=== PATIENT | male | born 1975 | race African-American/Black ===

== ENCOUNTER → 2018-05-13 | Outpatient (CLI) | payer OTHER ==
--- NOTE | 2018-05-13 19:29 | CONS ---
CONSULTATION DATE OF SERVICE: 05/13/2018 42-year-old gentleman has been evaluated in Sleep Center for obstructive sleep apnea- hypopnea syndrome. HISTORY OF PRESENT ILLNESS/SLEEP WAKE EVALUATION: Patient has been diagnosed with obstructive sleep apnea about 10 years ago in different institution in [place]. Since that time, patient is on treatment with CPAP every night for the whole night. For the last 3 years, patient significantly increased his weight around 80 pounds. Recently his told about episodes of heavy breathing during the sleep while patient continued to use his CPAP equipment every night. SLEEP SCHEDULE: Sleep schedule on weekdays from 10:30 p.m. to 6 a.m. and on weekends from around 11:30 p.m. to 8:30 a.m. FALLING ASLEEP: He does have problem with falling asleep the bedroom. Although, no t.v. In bedroom. DURING SLEEP: He sleeps on the back position. He wakes up from sleep 2 times. DURING THE DAY/SLEEP WAKE EVALUATION: In the morning, he wakes up tired, has episodes of depression, anxiety, and sexual dysfunction. [place] Sleepiness Scale is 8. PAST MEDICAL HISTORY: Positive for gout, hypertension, fibromyalgia, leukemia. PAST SURGICAL HISTORY: Toenail removal, otherwise negative. MEDICATIONS: allopurinol, Duloxetine, felodipine, potassium supplement, Viagra on p.r.n. basis. SOCIAL HISTORY: Negative for smoking. Alcohol consumption occasional. FAMILY HISTORY: Hypertension, heart problems, hyperlipidemia, stroke, fibromyalgia, arthritis, sinus headaches, sleep apnea, lung problems, cancer, mental illness, acid reflux. REVIEW OF SYSTEMS: Awakenings from sleep. Episodes of heavy breathing while on treatment with CPAP. CPAP unit is old. Does not have information about apnea-hypopnea index. Auto set pressure with minimal pressure 5 and maximal 20. Patient does not have information about average pressure. PHYSICAL EXAM: gentleman without distress, BP 138/81, HR around 110, RR 16, height 5 foot 10-1/2 inches, weight 313 pounds, body mass index 44.1, temperature 98.5, oxygen saturation on room air 94%. Oropharynx: Extremely low position of soft palate. ABDOMEN: Obese. Neck Supple, no JVD. Thyroid is not palpable. LUNGS Clear to percussion and to auscultation. Good air exchange. No wheezing or rhonchi. HEART S1, S2 regular. No murmurs, gallops, or rubs. ABDOMEN: Obese. Soft and nontender. Bowel sounds are present. No organomegaly appreciated. EXTREMITIES No clubbing or cyanosis. 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 Cranial nerves 2 to 7 intact. There is no fasciculation or atrophy. noted. No focal deficits observed. IMPRESSION: 1. Obstructive sleep apnea-hypopnea syndrome for about 10 years. Patient continued to use his CPAP equipment every night, but has episodes of heavy breathing on CPAP. Patient increased his weight around 80 pounds compared with the weight when he had the sleep study. 2. Obesity, body mass index 44.1. 3. Hypertension. 4. Gout. 5. History of leukemia, CML, chronic myeloid leukemia. 6. Fibromyalgia. PLAN: 1. Repeat CPAP titration for reevaluation of effective CPAP pressure at the present time after patient significantly increased his weight. He should get new CPAP unit after titration. 2. Losing weight. 3. Sleep hygiene with regular time in bed for at least 8 hours. 4. No driving if feeling sleepiness. Thank you very much for referring this patient for consultation. Sincerely, Yovani Chew MD, PhD, FAASM Diplomat of [place] [employer] [employer] Sourcing Coordinator of [facility] [place] MMODL / YENYN: [id number] /
== END | disposition home or self-care (01) ==
LOC: SLEEP 15:32
PROVIDERS: ATTEND Internal Medicine
DX: G47.33 Obstructive sleep apnea (adult) (pediatric) (principal); F32.9 Major depressive disorder, single episode, unspecified; F41.9 Anxiety disorder, unspecified; N53.9 Unspecified male sexual dysfunction; M10.9 Gout, unspecified; I10 Essential (primary) hypertension; M79.7 Fibromyalgia; E66.9 Obesity, unspecified; Z68.41 Body mass index [BMI] 40.0-44.9, adult; Z99.89 Dependence on other enabling machines and devices; Z79.899 Other long term (current) drug therapy; Z85.6 Personal history of leukemia
CPT/HCPCS: 99211

== ENCOUNTER 2018-06-05 16:40 | Emergency (ER) | payer OTHER ==
[2018-06-05 16:49] VITALS: PULSE 115; RESP 20; TEMP 98.5
[2018-06-05] MEDS ORDERED: SODIUM CHLORIDE 0.9% 1,000 ML IV STA (17:09)
[2018-06-05] MEDS ORDERED: methylPREDNISolone SOD SUCCI 125 MG/2 ML VIAL IV STA (17:10)
--- NOTE | 2018-06-05 17:22 | ED ---
Recheck HPI - General Chief Complaint: Recheck/Abnormal Lab/Rx Stated Complaint: Abnormal EKG Time Seen by Provider: 06/05/18 16:58 Source: patient Mode of arrival: wheelchair Limitations: no limitations - History of Present Illness Initial Comments: 42-year-old male patient presents to the emergency department today for evaluation after having an abnormal EKG at urgent care. Patient states that he presented to urgent care today for evaluation of cough. Patient states his been sick over the last week with cough, nasal congestion, sore throat, and fever. Patient states is her throat and fever have resolved however the cough has persisted. Patient states when he arrived at urgent care his heart rate was elevated. States that it EKG found some changes and sent him over for further evaluation. Patient denies any chest pain. States he has been short of breath at times especially with coughing. States he does have a history of chronic myeloid leukemia, and hypertension. Patient denies any recent rash, abdominal pain, nausea, vomiting, diarrhea, constipation, back pain, numbness, tingling, dizziness, weakness, hematuria, dysuria, urinary urgency, urinary frequency, headache, visual changes, or any other complaints. - Related Data Home Medications Medication Instructions Recorded Confirmed Allopurinol [Zyloprim] 300 mg PO DAILY 06/05/18 06/05/18 Cold Eeze (Unknown Dose) 1 tab PO TID PRN 06/05/18 06/05/18 DULoxetine HCL [Cymbalta] 60 mg PO DAILY 06/05/18 06/05/18 Felodipine [Felodipine ER] 10 mg PO DAILY 06/05/18 06/05/18 Multivitamin,Therapeutic [Thera] 1 tab PO DAILY 06/05/18 06/05/18 Naproxen Sodium [Aleve] 220 mg PO DAILY 06/05/18 06/05/18 Nilotinib HCl [Tasigna] 300 mg PO BID 06/05/18 06/05/18 Telmisartan/Hydrochlorothiazid 1 tab PO DAILY 06/05/18 06/05/18 [Micardis Hct 80-25 mg Tablet] Allergies Allergy/AdvReac Type Severity Reaction Status Date / Time Penicillins Allergy Rash/Hives Verified 06/05/18 17:42 Sulfa (Sulfonamide AdvReac Rash/Hives Verified 06/05/18 17:42 Antibiotics) Review of Systems ROS Statement: Those systems with pertinent positive or pertinent negative responses have been documented in the HPI. ROS Other: All systems not noted in ROS Statement are negative. Past Medical History Past Medical History: Cancer, Hypertension Additional Past Medical History / Comment(s): CML History of Any Multi-Drug Resistant Organisms: None Reported Past Surgical History: Heart Catheterization Past Psychological History: Depression Smoking Status: Never smoker Past Alcohol Use History: Occasional Past Drug Use History: None Reported General Exam Limitations: no limitations General appearance: alert, in no apparent distress, other (Physical well- developed, well-nourished adult male patient in no acute distress. Vital signs upon presentation are temperature 98.5F, pulse 1:15, respirations 20, blood pressure 131/75, pulse ox 95% on room air.) Eye exam: Present: normal appearance, PERRL, EOMI. Absent: scleral icterus, conjunctival injection, periorbital swelling ENT exam: Present: normal exam, normal oropharynx, mucous membranes moist, TM's normal bilaterally Neck exam: Present: normal inspection. Absent: tenderness, meningismus, lymphadenopathy Respiratory exam: Present: normal lung sounds bilaterally. Absent: respiratory distress, wheezes, rales, rhonchi, stridor Cardiovascular Exam: Present: normal rhythm, tachycardia, normal heart sounds. Absent: systolic murmur, diastolic murmur, rubs, gallop, clicks GI/Abdominal exam: Present: soft, normal bowel sounds. Absent: distended, tenderness, guarding, rebound, rigid Neurological exam: Present: alert, oriented X3, CN II-XII intact Psychiatric exam: Present: normal affect, normal mood Skin exam: Present: warm, dry, intact, normal color. Absent: rash Course Vital Signs 06/05/18 06/05/18 16:45 17:04 Temperature 98.5 F 98.5 F Pulse Rate 115 H 115 H Respiratory 20 20 Rate Blood Pressure 131/75 142/74 O2 Sat by Pulse 95 95 Oximetry Medical Decision Making - Medical Decision Making 42-year-old male patient was sent to the emergency department from urgent care for abnormal EKG. EKG showed T-wave abnormality with sinus tachycardia. Labs are unremarkable. D-dimer negative. Chest x-ray showed no acute cardio pulmonary process. We will discharge patient home at this time a diagnosis of acute bronchitis. He did receive prescriptions for azithromycin, steroids, and Tessalon Perles from urgent care, he is urged to complete these medications. He is instructed follow up with his primary care physician for recheck for repeat EKG and possible referral to cardiology. Return parameters were discussed in detail. He verbalizes understanding and agrees with this plan. - Lab Data Result diagrams: 06/05/18 17:15 06/05/18 17:15 Lab Results 06/05/18 06/05/18 06/05/18 Range/Units 17:15 17:15 17:15 WBC 9.1 (3.8-10.6) k/uL RBC 5.12 (4.30-5.90) m/uL Hgb 14.1 (13.0-17.5) gm/dL Hct 45.4 (39.0-53.0) % MCV 88.8 (80.0-100.0) fL MCH 27.5 (25.0-35.0) pg MCHC 31.0 (31.0-37.0) g/dL RDW 14.1 (11.5-15.5) % Plt Count 153 (150-450) k/uL Neutrophils % 59 % Lymphocytes % 22 % Monocytes % 11 % Eosinophils % 3 % Basophils % 1 % Neutrophils # 5.4 (1.3-7.7) k/uL Lymphocytes # 2.0 (1.0-4.8) k/uL Monocytes # 1.0 (0-1.0) k/uL Eosinophils # 0.3 (0-0.7) k/uL Basophils # 0.1 (0-0.2) k/uL PT (9.0-12.0) sec INR (<1.2) APTT (22.0-30.0) sec D-Dimer (<0.60) mg/L FEU Sodium 143 (137-145) mmol/L Potassium 4.1 (3.5-5.1) mmol/L Chloride 105 (98-107) mmol/L Carbon Dioxide 30 (22-30) mmol/L Anion Gap 8 mmol/L BUN 13 (9-20) mg/dL Creatinine 0.87 (0.66-1.25) mg/dL Est GFR (CKD-EPI)AfAm >90 (>60 ml/min/1.73 sqM) Est GFR (CKD-EPI)NonAf >90 (>60 ml/min/1.73 sqM) Glucose 105 H (74-99) mg/dL Calcium 9.5 (8.4-10.2) mg/dL Magnesium 1.9 (1.6-2.3) mg/dL Total Bilirubin 0.6 (0.2-1.3) mg/dL AST 33 (17-59) U/L ALT 52 (21-72) U/L Alkaline Phosphatase 61 (38-126) U/L Total Creatine Kinase 254 H (55-170) U/L CK-MB (CK-2) 1.4 (0.0-2.4) ng/mL CK-MB (CK-2) Rel Index 0.6 Troponin I <0.012 (0.000-0.034) ng/mL Total Protein 7.7 (6.3-8.2) g/dL Albumin 4.3 (3.5-5.0) g/dL 06/05/18 Range/Units 17:15 WBC (3.8-10.6) k/uL RBC (4.30-5.90) m/uL Hgb (13.0-17.5) gm/dL Hct (39.0-53.0) % MCV (80.0-100.0) fL MCH (25.0-35.0) pg MCHC (31.0-37.0) g/dL RDW (11.5-15.5) % Plt Count (150-450) k/uL Neutrophils % % Lymphocytes % % Monocytes % % Eosinophils % % Basophils % % Neutrophils # (1.3-7.7) k/uL Lymphocytes # (1.0-4.8) k/uL Monocytes # (0-1.0) k/uL Eosinophils # (0-0.7) k/uL Basophils # (0-0.2) k/uL PT 9.5 (9.0-12.0) sec INR 0.9 (<1.2) APTT 25.5 (22.0-30.0) sec D-Dimer 0.29 (<0.60) mg/L FEU Sodium (137-145) mmol/L Potassium (3.5-5.1) mmol/L Chloride (98-107) mmol/L Carbon Dioxide (22-30) mmol/L Anion Gap mmol/L BUN (9-20) mg/dL Creatinine (0.66-1.25) mg/dL Est GFR (CKD-EPI)AfAm (>60 ml/min/1.73 sqM) Est GFR (CKD-EPI)NonAf (>60 ml/min/1.73 sqM) Glucose (74-99) mg/dL Calcium (8.4-10.2) mg/dL Magnesium (1.6-2.3) mg/dL Total Bilirubin (0.2-1.3) mg/dL AST (17-59) U/L ALT (21-72) U/L Alkaline Phosphatase (38-126) U/L Total Creatine Kinase (55-170) U/L CK-MB (CK-2) (0.0-2.4) ng/mL CK-MB (CK-2) Rel Index Troponin I (0.000-0.034) ng/mL Total Protein (6.3-8.2) g/dL Albumin (3.5-5.0) g/dL - EKG Data -: EKG Interpreted by Ri EKG Comments: EKG obtained at 1709 shows sinus tachycardia with a ventricular rate of 113, VT interval 126, QRS duration 86, QT 314, QTC 430. No evidence of ST elevation or depression. - Radiology Data Radiology results: report reviewed, image reviewed Two-view x-ray of the chest is obtained. Report was reviewed in its entirety. Impression by Dr. Foreman shows normal chest. Disposition Clinical Impression: Acute bronchitis Disposition: HOME SELF-CARE Condition: Good Instructions: Acute Bronchitis (ED) Additional Instructions: Increase fluids. Complete medications prescribed by [facility]. Follow up with your primary care physician for repeat EKG. Return to the emergency department for any new, worsening, or concerning symptoms. Is patient prescribed a controlled substance at d/c from ED?: No Referrals: Kamilah Jovel MD [Primary Care Provider] - 1-2 days Time of Disposition: 18:13
[2018-06-05 17:23] VITALS: BP 142/74
[2018-06-05 17:48] LABS: Basophils # (A) 0.1 k/uL (0-0.2); Basophils % (A) 1 %; Eosinophils # (A) 0.3 k/uL (0-0.7); Eosinophils % (A) 3 %; HCT 45.4 % (39.0-53.0); HGB 14.1 gm/dL (13.0-17.5); Lymphocytes % (A) 22 %; MCH 27.5 pg (25.0-35.0); MCV 88.8 fL (80.0-100.0); Mean Platelet Volume 9.7; Monocytes % (A) 11 %; Neutrophils # (A) 5.4 k/uL (1.3-7.7); Neutrophils % (A) 59 %; Platelet Count 153 k/uL (150-450); RBC 5.12 m/uL (4.30-5.90); RDW 14.1 % (11.5-15.5); WBC 9.1 k/uL (3.8-10.6)
[2018-06-05 17:56] LABS: Creatine Kinase 254 U/L (55-170)
--- NOTE | 2018-06-05 17:56 | XR ---
EXAMINATION TYPE: XR chest 2V DATE OF EXAM: 06/05/2018 COMPARISON: NONE HISTORY: Abnormal cardiogram TECHNIQUE: Frontal and lateral views of the chest are obtained. FINDINGS: Heart and mediastinum are normal. Lungs are clear. Diaphragm is normal. Bony thorax is int act. IMPRESSION: Normal chest.
[2018-06-05 17:58] LABS: ALT 52 U/L (21-72); AST 33 U/L (17-59); Albumin 4.3 g/dL (3.5-5.0); Alkaline Phosphatase 61 U/L (38-126); Anion Gap 8 mmol/L; Blood Urea Nitrogen 13 mg/dL (9-20); Calcium 9.5 mg/dL (8.4-10.2); Carbon Dioxide 30 mmol/L (22-30); Chloride 105 mmol/L (98-107); Glucose 105 mg/dL (74-99); Magnesium 1.9 mg/dL (1.6-2.3); Potassium 4.1 mmol/L (3.5-5.1); Sodium 143 mmol/L (137-145); Total Bilirubin 0.6 mg/dL (0.2-1.3); Total Protein 7.7 g/dL (6.3-8.2)
[2018-06-05 18:00] LABS: D-Dimer 0.29 mg/L FEU (<0.60); INR 0.9 (<1.2); Partial Thromboplastin Time 25.5 sec (22.0-30.0); Prothrombin Time 9.5 sec (9.0-12.0)
[2018-06-05 18:10] LABS: Creatine Kinase MB 1.4 ng/mL (0.0-2.4); Troponin I <0.012 ng/mL (0.000-0.034)
== END 2018-06-05 18:30 | disposition home or self-care (01) ==
LOC: EC 16:40
DX: J20.9 Acute bronchitis, unspecified (principal); R00.0 Tachycardia, unspecified; I10 Essential (primary) hypertension; Z85.6 Personal history of leukemia; F32.9 Major depressive disorder, single episode, unspecified; Z79.899 Other long term (current) drug therapy; Z79.1 Long term (current) use of non-steroidal anti-inflammatories (NSAID); Z88.0 Allergy status to penicillin; Z88.2 Allergy status to sulfonamides; Z95.818 Presence of other cardiac implants and grafts
CPT/HCPCS: 99285; 96374; 36415; 93005; 85379; 80053; 82550; 82553; 83735; 84484; 85025; 85610; 85730; 71046; 96361; J2930

== ENCOUNTER → 2018-09-24 | Outpatient (CLI) | payer OTHER ==
--- NOTE | 2018-09-24 16:44 | PN ---
PROGRESS NOTE DATE OF SERVICE: 09/24/2018 43-year-old gentleman who has been followed in Sleep Center for treatment of obstructive sleep apnea-hypopnea syndrome. Recently patient had CPAP titration and after that he received new CPAP unit. He is able to use CPAP equipment every night for the whole night. He does have a little bit discomfort with nasal pillows in his nostrils. Otherwise, he sleeps well with that. [place] Sleepiness Scale is 9 today. Medications: Tasigna, allopurinol, duloxetine, felodipine and Viagra. I checked the patient CPAP unit. Range of the pressure 12-17, most of the time pressure is 16.9. Leak is 29 L/minute which is borderline. Apnea-hypopnea index for the last month is 2.6, which is in normal range. Usage is 100% of the nights more than 4 hours every 7.7 hours per night. PHYSICAL EXAM: Patient in no distress. BP 137/86, HR 90, RR 16, weight 321, temp 98.7, oxygen saturation at room air 95%. Oropharynx extremely low position of soft palate, Mallampati 4. Neck Supple, no JVD. Thyroid is not palpable. LUNGS Clear to percussion and to auscultation. Good air exchange. No wheezing or rhonchi. HEART S1, S2 regular. No murmurs, gallops, or rubs. ABDOMEN: Obese. Soft and nontender. Bowel sounds are present. No organomegaly appreciated. EXTREMITIES No clubbing or cyanosis. UNDERGROUND SUPERVISOR Awake, alert, and oriented X3. Cranial nerves 2 to 7 intact. There is no fasciculation or atrophy. noted. No focal deficits observed. IMPRESSION: 1. Obstructive sleep apnea-hypopnea syndrome. The patient demonstrated 100% compliance with treatment benefitting from treatment. 2. Obesity. 3. Hypertension. 4. History of chronic myelocytic leukemia. 5. Gout. 6. History of fibromyalgia. PLAN: 1. The patient will continue to use CPAP equipment every night for the whole night. 2. We will check a different style of nasal pillow or different style of mask. Possibly to use a chin strap. 3. Losing weight. 4. Sleep hygiene with regular time in bed for 7.5 to 8 hours. 5. No driving if feeling sleepiness. Thank you very much for allowing me to participate in management of your patient. Sincerely, Yovani Chew, MD, PhD, FAASM Diplomat of [employer] [employer] [employer] Film And Video Graphics Designer of [facility] [place] MMJOE / ANGELA: [id number] /
== END | disposition home or self-care (01) ==
LOC: SLEEP 15:35
PROVIDERS: ATTEND Internal Medicine
DX: G47.33 Obstructive sleep apnea (adult) (pediatric) (principal); E66.9 Obesity, unspecified; I10 Essential (primary) hypertension; M10.9 Gout, unspecified; M79.7 Fibromyalgia; Z99.89 Dependence on other enabling machines and devices; Z85.6 Personal history of leukemia

== ENCOUNTER → 2019-03-24 | Outpatient (CLI) | payer BC, OTHER ==
[2019-03-24 11:33] VITALS: BMI 43.9
== END | disposition home or self-care (01) ==
LOC: DBWHC3 09:57
PROVIDERS: ATTEND Family Medicine
DX: E66.01 Morbid (severe) obesity due to excess calories (principal); Z68.41 Body mass index [BMI] 40.0-44.9, adult
CPT/HCPCS: 97802

== ENCOUNTER → 2019-09-15 | Outpatient (CLI) | payer BC ==
--- NOTE | 2019-09-15 17:27 | XR ---
EXAMINATION TYPE: XR chest 2V DATE OF EXAM: 09/15/2019 COMPARISON: 06/05/2018 HISTORY: 43-year-old male J18.19, follow-up pneumonia TECHNIQUE: PA and lateral views FINDINGS: Heart normal size. Aorta and pulmonary vasculature within normal limits. Some strandy atelectasis in the left lower lung. Otherwise, no consolidation or pleural effusion. IMPRESSION: Some strandy left basilar atelectasis. Otherwise, no acute process seen.
== END | disposition home or self-care (01) ==
LOC: RADXRMAIN 16:58
PROVIDERS: ATTEND Family Medicine
DX: J98.11 Atelectasis (principal); J18.9 Pneumonia, unspecified organism
CPT/HCPCS: 71046

== ENCOUNTER → 2019-11-15 | Outpatient (CLI) | payer BC ==
[2019-11-15 15:28] LABS: Basophils # (A) 0.1 k/uL (0-0.2); Basophils % (A) 1 %; Eosinophils # (A) 0.2 k/uL (0-0.7); Eosinophils % (A) 2 %; HCT 43.6 % (39.0-53.0); Hypochromasia Slight; Lymphocytes % (A) 27 %; MCH 29.2 pg (25.0-35.0); MCHC 32.2 g/dL (31.0-37.0); MCV 90.8 fL (80.0-100.0); Mean Platelet Volume 11.2; Monocytes # (A) 0.4 k/uL (0-1.0); Monocytes % (A) 4 %; Neutrophils # (A) 7.1 k/uL (1.3-7.7); Neutrophils % (A) 65 %; Platelet Count 155 k/uL (150-450); RDW 13.8 % (11.5-15.5); WBC 10.9 k/uL (3.8-10.6)
[2019-11-15 20:19] LABS: African American GFR (CKD) 125.9 (60.0-200.0); Albumin 4.5 g/dL (3.80-4.90); Albumin/Globulin Ratio 1.73 (1.60-3.17); Anion Gap 9.9 mmol/L (4.00-12.00); BUN/Creat Ratio 11.25 Ratio (12.00-20.00); Calcium 9.2 mg/dL (8.7-10.3); Carbon Dioxide 27.1 mmol/L (21.6-31.8); Globulin 2.6 g/dL (1.6-3.3); Non-African American GFR(CKD) 108.6 (60.0-200.0); Potassium 3.8 mmol/L (3.5-5.5); Total Bilirubin 0.5 mg/dL (0.2-1.2); Total Protein 7.1 g/dL (6.2-8.2)
== END | disposition home or self-care (01) ==
LOC: LABWHC1 14:22
PROVIDERS: ATTEND Internal Medicine
DX: C92.10 Chronic myeloid leukemia, BCR/ABL-positive, not having achieved remission (principal)
CPT/HCPCS: 36415; 80053; 85025

== ENCOUNTER → 2019-12-01 | Outpatient (CLI) | payer BC | END | disposition home or self-care (01) | LOC: LABWHC1 11:37 | PROVIDERS: ATTEND Physician Assistant | DX: Z53.9 Procedure and treatment not carried out, unspecified reason (principal) ==

== ENCOUNTER → 2019-12-22 | Outpatient (CLI) | payer BC | END | disposition home or self-care (01) | LOC: LABWHC1 08:03 | PROVIDERS: ATTEND Physician Assistant | DX: Z09 Encounter for follow-up examination after completed treatment for conditions other than malignant neoplasm (principal); C92.10 Chronic myeloid leukemia, BCR/ABL-positive, not having achieved remission | CPT/HCPCS: 36415 ==

== ENCOUNTER → 2020-05-09 | Outpatient (CLI) | payer BC ==
[2020-05-09 12:33] LABS: Basophils # (A) 0.1 k/uL (0-0.2); Basophils % (A) 1 %; Eosinophils # (A) 0.1 k/uL (0-0.7); Eosinophils % (A) 1 %; HCT 44.9 % (39.0-53.0); HGB 14.6 gm/dL (13.0-17.5); Lymphocytes # (A) 2.4 k/uL (1.0-4.8); Lymphocytes % (A) 21 %; MCH 28.8 pg (25.0-35.0); MCHC 32.4 g/dL (31.0-37.0); MCV 88.8 fL (80.0-100.0); Monocytes # (A) 0.6 k/uL (0-1.0); Monocytes % (A) 5 %; Neutrophils # (A) 8.1 k/uL (1.3-7.7); Neutrophils % (A) 70 %; Platelet Count 151 k/uL (150-450); RBC 5.06 m/uL (4.30-5.90); RDW 13.4 % (11.5-15.5); WBC 11.6 k/uL (3.8-10.6)
[2020-05-09 20:00] LABS: African American GFR (CKD) 105.6 (60.0-200.0); Albumin 4.9 g/dL (3.80-4.90); Albumin/Globulin Ratio 1.96 (1.60-3.17); Anion Gap 9.8 mmol/L (4.00-12.00); Calcium 9.5 mg/dL (8.7-10.3); Carbon Dioxide 28.2 mmol/L (21.6-31.8); Chol/HDL Ratio 4.68; Globulin 2.5 g/dL (1.6-3.3); LDL Cholesterol,Calculated 120.4 mg/dL (0.0-131.0); Non-African American GFR(CKD) 91.1 (60.0-200.0); Total Bilirubin 0.7 mg/dL (0.2-1.2); Total Protein 7.4 g/dL (6.2-8.2); VLDL Calculation 19.6 mg/dL (5.00-40.00)
== END | disposition home or self-care (01) ==
LOC: LABWHC1 10:47
PROVIDERS: ATTEND Family Medicine
DX: Z00.00 Encounter for general adult medical examination without abnormal findings (principal); I10 Essential (primary) hypertension; C92.10 Chronic myeloid leukemia, BCR/ABL-positive, not having achieved remission; F32.9 Major depressive disorder, single episode, unspecified; G47.33 Obstructive sleep apnea (adult) (pediatric)
CPT/HCPCS: 36415; 80053; 80061; 85025

== ENCOUNTER → 2020-06-06 | Outpatient (CLI) | payer BC ==
--- NOTE | 2020-06-07 09:22 | XR ---
EXAMINATION TYPE: XR knee complete bilateral DATE OF EXAM: 06/06/2020 COMPARISON: NONE HISTORY: Pain TECHNIQUE: Three views are submitted of each knee. FINDINGS: Mild narrowing of the medial compartment of the knee joint bilaterally. Osseous structures are intac t. No acute fracture seen. Soft tissue calcifications are noted. IMPRESSION: 1. Mild arthropathy. Small amount of fluid in the suprapatellar bursa not excluded. Correlate with MR I as clinically warranted..
== END | disposition home or self-care (01) ==
LOC: RADXRMAIN 15:58
PROVIDERS: ATTEND Family Medicine
DX: M12.862 Other specific arthropathies, not elsewhere classified, left knee (principal); M25.862 Other specified joint disorders, left knee

== ENCOUNTER → 2020-07-10 | Outpatient (CLI) | payer BC | END | disposition home or self-care (01) | LOC: LABWHC1 16:07 | PROVIDERS: ATTEND Internal Medicine | DX: C92.10 Chronic myeloid leukemia, BCR/ABL-positive, not having achieved remission (principal) | CPT/HCPCS: 36415 ==

== ENCOUNTER → 2020-08-02 | Outpatient (CLI) | payer BC ==
[2020-08-03 00:19] LABS: Basophils # (A) 0.08 X 10*3/uL (0.00-0.10); Basophils % (A) 0.6 %; Eosinophils % (A) 1.5 %; HGB 13.3 g/dL (13.0-17.0); Lymphocytes # (A) 3.46 X 10*3/uL (0.90-5.00); Lymphocytes % (A) 26.3 %; MCH 27.8 pg (27.0-32.0); MCHC 30.9 g/dL (32.0-37.0); MCV 89.8 fL (80.0-97.0); Mean Platelet Volume 13.9 fL (9.5-12.2); Monocytes # (A) 1.32 X 10*3/uL (0.20-1.00); Neutrophils # (A) 7.99 X 10*3/uL (1.80-7.70); Neutrophils % (A) 60.9 %; Platelet Count 171 X 10*3/uL (140-440); RBC 4.79 X 10*6/uL (4.40-5.60); RDW 13.5 % (11.5-14.5); WBC 13.14 X 10*3/uL (4.50-10.00)
[2020-08-03 13:09] LABS: Uric Acid 4.8 mg/dL (3.7-8.7)
[2020-08-03 13:10] LABS: African American GFR (CKD) 105.6 (60.0-200.0); Albumin 4.7 g/dL (3.80-4.90); Albumin/Globulin Ratio 1.74 (1.60-3.17); Anion Gap 13.9 mmol/L (4.00-12.00); Calcium 9.9 mg/dL (8.7-10.3); Carbon Dioxide 24.1 mmol/L (21.6-31.8); Chol/HDL Ratio 3.34; Globulin 2.7 g/dL (1.6-3.3); LDL Cholesterol,Calculated 68.4 mg/dL (0.0-131.0); Non-African American GFR(CKD) 91.1 (60.0-200.0); Potassium 3.8 mmol/L (3.5-5.5); Total Bilirubin 0.5 mg/dL (0.3-1.2); Total Protein 7.4 g/dL (6.2-8.2); VLDL Calculation 20.6 mg/dL (5.00-40.00)
== END | disposition home or self-care (01) ==
LOC: LABWHC1 16:16
PROVIDERS: ATTEND Internal Medicine
DX: C92.10 Chronic myeloid leukemia, BCR/ABL-positive, not having achieved remission (principal)
CPT/HCPCS: 36415; 80053; 80061; 82150; 83615; 83690; 84550; 85025

== ENCOUNTER → 2020-11-16 | Outpatient (CLI) | payer BC ==
--- NOTE | 2020-11-17 10:47 | XR ---
EXAM TYPE: LUMBAR SPINE X RAY SERIES COMPARISON: NONE HISTORY: Pain TECHNIQUE: 4 views are submitted. FINDINGS: Alignment is anatomic. The pedicles are intact. The transverse processes are intact. There is no s pondylolysis or spondylolisthesis. Degenerative change L5-S1. Facet arthropathy. IMPRESSION: 1. Degenerative change L5-S1.
--- NOTE | 2020-11-17 10:55 | XR ---
EXAMINATION TYPE: XR thoracic spine complete DATE OF EXAM: 11/16/2020 COMPARISON: NONE HISTORY: Pain TECHNIQUE: 3 views submitted FINDINGS: Alignment is anatomic. There is no compression deformities. Hypertrophic and degenerative changes of the spine. IMPRESSION: 1. Multilevel hypertrophic and degenerative change of the spine.
== END | disposition home or self-care (01) ==
LOC: RADXRMAIN 16:00
PROVIDERS: ATTEND Family Medicine
DX: M51.37 Other intervertebral disc degeneration, lumbosacral region (principal); M47.814 Spondylosis without myelopathy or radiculopathy, thoracic region
CPT/HCPCS: 72072; 72100

== ENCOUNTER → 2021-02-06 | Outpatient (CLI) | payer BC ==
[2021-02-06 23:42] LABS: Basophils # (A) 0.11 X 10*3/uL (0.00-0.10); Eosinophils # (A) 0.23 X 10*3/uL (0.04-0.35); Eosinophils % (A) 2.1 %; HCT 43.4 % (39.6-50.0); HGB 13.8 g/dL (13.0-17.0); Lymphocytes # (A) 3.38 X 10*3/uL (0.90-5.00); MCH 28.9 pg (27.0-32.0); MCHC 31.8 g/dL (32.0-37.0); Mean Platelet Volume 13.4 fL (9.5-12.2); Monocytes # (A) 1.08 X 10*3/uL (0.20-1.00); Monocytes % (A) 9.9 %; Neutrophils # (A) 6.04 X 10*3/uL (1.80-7.70); Neutrophils % (A) 55.4 %; Platelet Count 154 X 10*3/uL (140-440); RBC 4.77 X 10*6/uL (4.40-5.60); RDW 13.5 % (11.5-14.5); WBC 10.91 X 10*3/uL (4.50-10.00)
[2021-02-07 03:59] LABS: African American GFR (CKD) 104.9 (60.0-200.0); Albumin 4.4 g/dL (3.80-4.90); Albumin/Globulin Ratio 1.57 (1.60-3.17); Anion Gap 11.5 mmol/L (4.00-12.00); Calcium 9.6 mg/dL (8.7-10.3); Carbon Dioxide 24.5 mmol/L (21.6-31.8); Globulin 2.8 g/dL (1.6-3.3); Non-African American GFR(CKD) 90.5 (60.0-200.0); Total Bilirubin 0.4 mg/dL (0.2-1.2); Total Protein 7.2 g/dL (6.2-8.2)
== END | disposition home or self-care (01) ==
LOC: LABWHC1 16:29
PROVIDERS: ATTEND Internal Medicine
DX: C92.10 Chronic myeloid leukemia, BCR/ABL-positive, not having achieved remission (principal)
CPT/HCPCS: 36415; 80053; 81206; 84550; 85025

== ENCOUNTER → 2021-02-21 | Outpatient (CLI) | payer BC ==
[~2021-02-21] MED LIST: CASIRIVIMAB/IMDEVIMAB (EUA) 1,200 MG in SODIUM CHLORIDE 0.9% 100 ML IVPB ONE; SODIUM CHLORIDE 0.9% 50 ML IVPB ONE; SODIUM CHLORIDE 0.9% 500 ML 500 ML in EMPTY BAG 1 BAG IV PRN
[2021-02-21 11:09] VITALS: RESP 16
[2021-02-21 12:14] VITALS: BP 116/73; PULSE 91; TEMP 98.6
== END ==
LOC: PROCWHC3 10:14
PROVIDERS: ATTEND Family Medicine
DX: U07.1 COVID-19 (principal); E66.9 Obesity, unspecified; I10 Essential (primary) hypertension; Z68.41 Body mass index [BMI] 40.0-44.9, adult; Z88.0 Allergy status to penicillin; Z88.2 Allergy status to sulfonamides
CPT/HCPCS: 96365; Q0243; M0243

== ENCOUNTER → 2021-02-28 | Outpatient (CLI) | payer BC ==
--- NOTE | 2021-02-28 20:17 | SFUN ---
SLEEP CENTER FOLLOW UP NOTE DATE OF SERVICE: 02/28/2021 This 45-year-old gentleman has been followed in Sleep Center for treatment of obstructive sleep apnea-hypopnea syndrome. Previous visit was in August of 2018, so it has been about 2-1/2 years. Patient continues to use his CPAP equipment every night. Recently he developed some noisy sounds while using the machine. [place] Sleepiness Scale today is 9. I checked his CPAP unit. Range of the pressure is 12-17. Average pressure 16.8. Usage 29/30 nights for more than 4 hours, average 7 hours. Leak is 57 L/minute, which is high. Apnea-hypopnea index is 1.6, which is normal. The patient is using a DreamWear medium wide full-face mask. MEDICATIONS: Allopurinol, aspirin 81 mg once a day, , duloxetine twice a day, hydrochlorothiazide once a day, verapamil once a day, buspirone once a day. PHYSICAL EXAMINATION: GENERAL: A pleasant -[place] gentleman without distress. VITAL SIGNS: BP 126/78, HR around 100, RR 15, height 5 feet 10 inches, weight 321.8, temperature 97.1, oxygen saturation at room air 97%. Body mass index 46.0. HEENT: PERRLA, EOMI, evaluation of oropharynx showed tongue protrudes midline. Extremely low position of soft palate; Mallampati IV. NECK: Supple, no JVD. Thyroid is not palpable. Wide neck at 19 inches in circumference. LUNGS: Clear to percussion and to auscultation. Good air exchange. No wheezing or rhonchi. HEART: S1, S2 regular. No murmurs, gallops, or rubs. ABDOMEN: Obese. EXTREMITIES: No clubbing or cyanosis. RETAIL DELIVERY DRIVER: Awake, alert, and oriented X3. Cranial nerves 2 to 7 intact. There is no fasciculation or atrophy. noted. No focal deficits observed. IMPRESSION: 1. Obstructive sleep apnea-hypopnea syndrome. Patient demonstrated great compliance with treatment, benefitting from treatment. 2. Obesity. 3. Hypertension. 4. History of chronic myelocytic leukemia. 5. Gout. 6. History of fibromyalgia. PLAN: 1. I changed the pressure in CPAP unit to range of pressure 12-19 cm of water instead of 17 cm of water. 2. Patient will continue to use PAP equipment every night for the whole night. 3. Sleep hygiene with regular time in bed for at least 7-1/2 to 8 hours. 4. Precautions related to driving. No driving if feeling sleepiness. 5. I will maintain all necessary prescription for PAP supplies including mask, tube, filters. 6. Watching weight. 7. Follow-up visit in 6 months or earlier if patient has any problems. I spent 30 minutes with patient and documentation. Thank you very much for allowing me to participate in the management of your patient. Sincerely, Yovani Chew MD, PhD, FAASM Diplomat of [place] [employer] Sleep Medicine Board of [place] [employer] Dryer Operator of [facility] [place] MMODL / YENYN: [id number] /
== END ==
LOC: SLEEP 13:39
PROVIDERS: ATTEND Internal Medicine
DX: G47.33 Obstructive sleep apnea (adult) (pediatric) (principal); E66.9 Obesity, unspecified; I10 Essential (primary) hypertension; M10.9 Gout, unspecified; Z85.6 Personal history of leukemia; Z87.39 Personal history of other diseases of the musculoskeletal system and connective tissue; Z99.89 Dependence on other enabling machines and devices; Z68.42 Body mass index [BMI] 45.0-49.9, adult; Z88.0 Allergy status to penicillin; Z88.2 Allergy status to sulfonamides

== ENCOUNTER → 2021-03-20 | Outpatient (CLI) | payer BC ==
--- NOTE | 2021-03-21 09:25 | XR ---
EXAMINATION TYPE: XR chest 2V DATE OF EXAM: 03/20/2021 COMPARISON: Chest x-ray 09/15/2019 HISTORY: R06.2 TECHNIQUE: Frontal and lateral views of the chest are obtained. FINDINGS: There is no focal air space opacity, pleural effusion, or pneumothorax seen. The cardiac silhouette size is within normal limits. The osseous structures are intact. Elevation of left hemid iaphragm is stable. IMPRESSION: No acute cardiopulmonary process.
== END | disposition home or self-care (01) ==
LOC: RADXRMAIN 16:19
PROVIDERS: ATTEND Family Medicine
DX: R06.2 Wheezing (principal)
CPT/HCPCS: 71046

== ENCOUNTER → 2021-05-08 | Outpatient (CLI) | payer BC ==
--- NOTE | 2021-05-08 15:00 | XR ---
EXAMINATION TYPE: XR ankle complete LT DATE OF EXAM: 05/08/2021 COMPARISON: None HISTORY: Left ankle pain TECHNIQUE: 3 view left ankle FINDINGS: Ankle mortise is intact. No acute fracture or dislocation is evident. There may be some dif fuse soft tissue swelling. No subacute osseous abnormalities evident. Follow-up exams can be performed as clinically indicated. IMPRESSION: 1. No acute osseous abnormality left ankle. 2. Mild diffuse soft tissue prominence may be present.
== END | disposition home or self-care (01) ==
LOC: RADXRMAIN 14:25
PROVIDERS: ATTEND Family Medicine
DX: M25.572 Pain in left ankle and joints of left foot (principal)

== ENCOUNTER → 2021-05-22 | Outpatient (CLI) | payer BC ==
[~2021-05-22] MED LIST changes: +BAMLANIVIMAB (EUA) 700 MG, ETESEVIMAB (EUA) 1,400 MG in SODIUM CHLORIDE 0.9% 50 ML IVPB ONE; -CASIRIVIMAB/IMDEVIMAB (EUA) 1,200 MG in SODIUM CHLORIDE 0.9% 100 ML IVPB ONE
[2021-05-22 10:50] VITALS: BP 144/85; PULSE 96; RESP 16; TEMP 97.2
== END ==
LOC: PROCWHC3 09:59
PROVIDERS: ATTEND Family Medicine
DX: U07.1 COVID-19 (principal); E66.9 Obesity, unspecified; Z88.0 Allergy status to penicillin; Z88.2 Allergy status to sulfonamides; Z68.41 Body mass index [BMI] 40.0-44.9, adult
CPT/HCPCS: 96360; J3490; M0245

== ENCOUNTER → 2021-06-27 | Outpatient (CLI) | payer BC ==
[2021-06-27 09:10] LABS: African American GFR (CKD) >90 (>60 ml/min/1.73 sqM); Blood Urea Nitrogen 12 mg/dL (9-20); Non-African American GFR(CKD) >90 (>60 ml/min/1.73 sqM)
--- NOTE | 2021-06-27 10:20 | CT ---
"EXAMINATION TYPE: CT angio chest DATE OF EXAM: 06/27/2021 COMPARISON: NONE HISTORY: dyspnea CT DLP: 790.8 mGycm. Automated Exposure Control for Dose Reduction was Utilized. CONTRAST: CTA scan of the thorax is performed with IV Contrast, patient injected with 100 mL of Isovue 370, pul monary embolism protocol. MIP Images are created on CT scanner and reviewed. FINDINGS: LUNGS: Exams are suboptimal as there is respiratory motion artifact. This is noted to lower sensitivi ty for subcentimeter nodules. No suspicious focal consolidation. Small focus of groundglass opacity i n the periphery of the inferior right upper axial image 63 could reflect scarring or developing infil trate. No pleural effusion or pneumothorax seen bilaterally. MEDIASTINUM: There is suboptimal bolus most dense contrast in SVC. There is hyperdense contrast in th e aorta without aneurysm or dissection. There is no large central saddle pulmonary embolism but canno t exclude lobar pulmonary emboli. Exam is almost nondiagnostic. There are no greater than 1 cm hilar or mediastinal lymph nodes. No cardiomegaly or pericardial effusion is seen. OTHER: No additional significant abnormality is seen. IMPRESSION: Suboptimal essentially nondiagnostic study. Consider repeat CTA or investigation with VQ scan and/or bilateral lower extremity Doppler ultrasound. A Yellow level critical message alert has been initiated for Leonid Agosto DO via the [employer] 0 | Critical Results System on 06/27/2021 10:17 AM. This message alert has been sent to Leonid Agosto DO via the preferences provided by the clinician for the receipt of Radiology Critical Findings. [facility] [id number]."
--- NOTE | 2021-06-27 11:51 | FL ---
EXAMINATION TYPE: FL sniff test without CXR DATE OF EXAM: 06/27/2021 COMPARISON: NONE HISTORY: Difficulty breathing TECHNIQUE: Fluoroscopy. FINDINGS: Sniff test was performed under C-arm guidance. The diaphragms are normally with inspiration and expiration. Upon sniffing there is no evidence for paradoxical diaphragmatic motion. IMPRESSION: No evidence for diaphragmatic paralysis.
== END | disposition home or self-care (01) ==
LOC: RADCTMAIN 08:10
PROVIDERS: ATTEND Internal Medicine Critical Care Medicine
DX: J98.6 Disorders of diaphragm (principal); R06.09 Other forms of dyspnea
CPT/HCPCS: 82565; 84520; 76000; 71275; 36415; Q9967

== ENCOUNTER → 2021-10-17 | Outpatient (CLI) | payer BC ==
--- NOTE | 2021-10-17 19:26 | SFUN ---
SLEEP CENTER FOLLOW UP NOTE DATE OF SERVICE: 10/17/2021 This 46-year-old gentleman has been followed in Sleep Center for treatment of obstructive sleep apnea-hypopnea syndrome. The patient continues to use CPAP equipment every night for the whole night and is getting his CPAP supplies on time. No snoring. [place] Sleepiness Scale today is 9, which is borderline. I checked his CPAP unit. Range of the pressure is 12 to 19, average pressure 17.8, usage 30/30 nights for more than 4 hours, average 7.2 hours per night. Leak is 35 L/minute. Apnea-hypopnea index is 2.0, which is normal. MEDICATIONS: 1. Allopurinol 300 mg once a day. 2. Verapamil 240 mg once a day. 3. Hydrochlorothiazide once a day. 4. Duloxetine 60 mg twice a day. PHYSICAL EXAMINATION: GENERAL: Pleasant patient in no distress. VITAL SIGNS: BP 156/89, HR 105, RR 18, weight 329.6, height 5 feet 10 inches, temperature 97.2, oxygen saturation at room air 96%. HEENT: PERRLA, EOMI, evaluation of oropharynx showed tongue protrudes midline. Extremely low position of soft palate; Mallampati IV. NECK: Supple, no JVD. Thyroid is not palpable. LUNGS: Clear to percussion and to auscultation. Good air exchange. No wheezing or rhonchi. HEART: S1, S2 regular. No murmurs, gallops, or rubs. ABDOMEN: Obese. EXTREMITIES: No clubbing or cyanosis. HONEY EXTRACTOR: Awake, alert, and oriented X3. Cranial nerves 2 to 7 intact. There is no fasciculation or atrophy. noted. No focal deficits observed. IMPRESSION: 1. Obstructive sleep apnea-hypopnea syndrome. Patient demonstrated 100% compliance with treatment, benefitting from treatment. Normal respiration on CPAP. 2. Hypertension. 3. Obesity. 4. History of chronic myelocytic leukemia. 5. Gout. 6. History of fibromyalgia. PLAN: 1. Patient will continue to use PAP equipment every night for the whole night. 2. Sleep hygiene with regular time in bed for at least 7-1/2 to 8 hours. 3. Precautions related to driving. No driving if feeling sleepiness. 4. I will maintain all necessary prescription for PAP supplies including mask, tube, filters. 5. Watching weight. 6. Follow-up visit in 6 months or earlier if patient has any problems. Thank you very much for allowing me to participate in the management of your patient. Sincerely, Yovani Chew MD, PhD, FAASM Diplomat of [place] [employer] Sleep Medicine Board of [place] [employer] Home Assessment Nurse of [facility] MMJOE / ANGELA: [id number] /
== END ==
LOC: SLEEP 16:14
PROVIDERS: ATTEND Internal Medicine
DX: G47.33 Obstructive sleep apnea (adult) (pediatric) (principal); I10 Essential (primary) hypertension; E66.9 Obesity, unspecified; M10.9 Gout, unspecified; Z87.39 Personal history of other diseases of the musculoskeletal system and connective tissue; Z85.6 Personal history of leukemia; Z99.89 Dependence on other enabling machines and devices; Z88.0 Allergy status to penicillin; Z88.2 Allergy status to sulfonamides

== ENCOUNTER 2021-10-22 07:58 | Day surgery (SDC) | payer BC ==
[2021-10-18 16:20] VITALS: BMI 45.8
--- NOTE | 2021-10-22 07:04 | P.GSHP ---
History of Present Illness H&P Date: 10/22/21 CHIEF COMPLAINT: GERD and colon screen HISTORY OF PRESENT ILLNESS: The patient is a 46-year-old male who presents with gastroesophageal reflux disease and need for colon screen. Upper and lower endoscopy were offered for further evaluation and management. PAST MEDICAL HISTORY: Please see list. PAST SURGICAL HISTORY: Please see list. MEDICATIONS: Please see list. ALLERGIES: Please see list. SOCIAL HISTORY: No illicit drug use FAMILY HISTORY: No reports of Crohn disease or ulcerative colitis. REVIEW OF ORGAN SYSTEMS: CONSTITUTIONAL: No reports of fevers or chills. GI: Denies any blood in stools or constipation. PHYSICAL EXAM: VITAL SIGNS: Stable GENERAL: Well-developed pleasant in no acute distress. HEENT: No scleral icterus. Extraocular movements grossly intact. Moist buccal mucosa. NECK: Supple without lymphadenopathy. CHEST: Unlabored respirations. Equal bilateral excursions. CARDIOVASCULAR: Regular rate and rhythm. Distal 2+ pulses. ABDOMEN: Soft, nondistended. MUSCULOSKELETAL: No clubbing, cyanosis, or edema. ASSESSMENT: 1. Gastroesophageal reflux disease 2. Colon screen. PLAN: 1. Recommend proceeding with an upper and lower endoscopy Past Medical History Past Medical History: Asthma, Cancer, Fibromyalgia, Hypertension, Osteoarthritis (OA), Pneumonia, Sleep Apnea/CPAP/BIPAP Additional Past Medical History / Comment(s): CML (leukemia), Gout, Hx of Butts, Pneumonia 2019, Covid 01/2021. Uses CPAP. Arthritis knees. History of Any Multi-Drug Resistant Organisms: None Reported Past Surgical History: Heart Catheterization Additional Past Surgical History / Comment(s): Heart cath 2013. Dental work Past Anesthesia/Blood Transfusion Reactions: No Reported Reaction, Motion Sic kness Smoking Status: Never smoker - Past Family History Father Family Medical History: Cancer Additional Family Medical History / Comment(s): prostate, colon cancers Medications and Allergies Home Medications Medication Instructions Recorded Confirmed Type Cold Eeze (Unknown Dose) 1 tab PO TID PRN 06/05/18 10/18/21 History DULoxetine HCL [Cymbalta] 60 mg PO BID 06/05/18 10/18/21 History Multivitamin,Therapeutic [Thera] 1 tab PO DAILY 06/05/18 10/18/21 History Naproxen Sodium [Aleve] 220 mg PO DAILY PRN 06/05/18 10/18/21 History Telmisartan/Hydrochlorothiazid 1 tab PO DAILY@1200 06/05/18 10/18/21 History [Micardis Hct 80-25 mg Tablet] allopurinoL [Zyloprim] 300 mg PO DAILY 06/05/18 10/18/21 History Bosutinib [Bosulif] 200 mg PO PC-SUPPER 02/21/21 10/18/21 History Potassium Chloride ER [K-Dur 20] 20 meq PO DAILY 02/21/21 10/18/21 History Verapamil HCl [Verapamil ER] 180 mg PO PC-SUPPER 02/21/21 10/18/21 History busPIRone HCl [Buspar] 5 mg PO BID 02/21/21 10/18/21 History Albuterol Inhaler [Ventolin Hfa 1 puff INHALATION RT-TID PRN 09/12/21 10/18/21 History Inhaler] Budesonide/Glycopyr/Formoterol 2 puff INHALATION BID 09/12/21 10/18/21 History [Breztri Aerosphere Inhaler] Aspirin [[place] Aspirin EC] 81 mg PO DAILY 10/18/21 10/18/21 History Allergies Allergy/AdvReac Type Severity Reaction Status Date / Time Penicillins Allergy Rash/Hives Verified 10/18/21 15:53 Sulfa (Sulfonamide AdvReac Rash/Hives Verified 10/18/21 15:53 Antibiotics)
[~2021-10-22 07:58] MED LIST changes: -BAMLANIVIMAB (EUA) 700 MG, ETESEVIMAB (EUA) 1,400 MG in SODIUM CHLORIDE 0.9% 50 ML IVPB ONE; +LACTATED RINGERS 1,000 ML IV SCH; +LIDOCAINE 1% (10MG/ML) FOR IV START INTRADERMA PRN; -SODIUM CHLORIDE 0.9% 50 ML IVPB ONE; -SODIUM CHLORIDE 0.9% 500 ML 500 ML in EMPTY BAG 1 BAG IV PRN
[2021-10-22 08:46] VITALS: TEMP 98.1
[2021-10-22] MEDS ORDERED: KETAMINE 10 MG/ML 20 ML VIAL ONE (09:15)
[2021-10-22] MEDS ORDERED: MIDAZOLAM 2 MG/2 ML VIAL ONE (09:15)
[2021-10-22] MEDS ORDERED: PROPOFOL 10 MG/ML 20 ML VIAL IV ONE (09:15)
[2021-10-22] MEDS ORDERED: LIDOCAINE 2% INJ 20 MG/ML (2 ML VIAL) ONE (09:15)
[2021-10-22] MEDS ORDERED: GLYCOPYRROLATE 0.2 MG/ML 2 ML VIAL ONE (09:15)
--- NOTE | 2021-10-22 09:47 | P.PCN ---
Date of Procedure: 10/22/21 Description of Procedure: PREOPERATIVE DIAGNOSIS: Colonoscopy screening. Family history of gastrointestinal cancer Personal history of chronic myeloid leukemia POSTOPERATIVE DIAGNOSIS: Colonoscopy screening. Family history of gastrointestinal cancer Personal history of chronic myeloid leukemia Poor prep OPERATION: Colonoscopy to the ascending colon. SURGEON: Teresa Quinones MD. ANESTHESIA: MAC. INDICATIONS: The patient is a 46-year-old female who presents for colonoscopy screening. Benefits and risks were described and informed consent was obtained. DESCRIPTION OF PROCEDURE: The patient had undergone Sutab prep. The patient had been brought into the operating room and laid in the left lateral decubitus position. After adequate intravenous sedation, the rectum was examined with 2% lidocaine jelly. No external hemorrhoids were encountered. The rectal tone was within normal limits. No lesions were palpated in the rectal vault. An Olympus colonoscope . was advanced to the ascending colon despite abdominal wall pressure. The prep was poor limiting view of the colon mucosa. No sigmoid diverticulosis was encountered. Poor prep limited identification of small polyp. No evidence of focal colitis was found. Retroflexion of the scope demonstrated grade 1 internal hemorrhoids without active bleeding or inflammation. The colon was desufflated. The patient had tolerated the procedure well. Withdrawal time was over 6 minutes. FINDINGS: Aronchick preparation quality scale 4 (1-5) Internal hemorrhoids, grade 1 No external prolapsed hemorrhoids. No large over 2 cm polyps identified however limited due to poor prep RECOMMENDATIONS: Repeat colonoscopy in one year, 2022 Plan - Discharge Summary Discharge Rx Participant: No New Discharge Prescriptions: New Sucralfate [Carafate] 1 gm PO BID #30 tablet Omeprazole [PriLOSEC] 40 mg PO DAILY #30 cap Continue Cold Eeze (Unknown Dose) 1 tab PO TID PRN PRN Reason: Cold Symptoms Telmisartan/Hydrochlorothiazid [Micardis Hct 80-25 mg Tablet] 1 tab PO DAILY@1200 Multivitamin,Therapeutic [Thera] 1 tab PO DAILY DULoxetine HCL [Cymbalta] 60 mg PO BID allopurinoL [Zyloprim] 300 mg PO DAILY Potassium Chloride ER [K-Dur 20] 20 meq PO DAILY Bosutinib [Bosulif] 200 mg PO PC-SUPPER Budesonide/Glycopyr/Formoterol [Breztri Aerosphere Inhaler] 2 puff INHALATION BID busPIRone HCl [Buspar] 5 mg PO BID Verapamil HCl [Verapamil ER] 180 mg PO PC-SUPPER Albuterol Inhaler [Ventolin Hfa Inhaler] 1 puff INHALATION RT-TID PRN PRN Reason: Shortness Of Breath Aspirin [Dodson Aspirin EC] 81 mg PO DAILY Discontinued Naproxen Sodium [Aleve] 220 mg PO DAILY PRN PRN Reason: Pain Discharge Medication List Cold Eeze (Unknown Dose) 1 tab PO TID PRN 06/05/18 [History] DULoxetine HCL [Cymbalta] 60 mg PO BID 06/05/18 [History] Multivitamin,Therapeutic [Thera] 1 tab PO DAILY 06/05/18 [History] Telmisartan/Hydrochlorothiazid [Micardis Hct 80-25 mg Tablet] 1 tab PO DAILY@1200 06/05/18 [History] allopurinoL [Zyloprim] 300 mg PO DAILY 06/05/18 [History] Bosutinib [Bosulif] 200 mg PO PC-SUPPER 02/21/21 [History] Potassium Chloride ER [K-Dur 20] 20 meq PO DAILY 02/21/21 [History] Verapamil HCl [Verapamil ER] 180 mg PO PC-SUPPER 02/21/21 [History] busPIRone HCl [Buspar] 5 mg PO BID 02/21/21 [History] Albuterol Inhaler [Ventolin Hfa Inhaler] 1 puff INHALATION RT-TID PRN 09/12/21 [History] Budesonide/Glycopyr/Formoterol [Breztri Aerosphere Inhaler] 2 puff INHALATION BID 09/12/21 [History] Aspirin [Dodson Aspirin EC] 81 mg PO DAILY 10/18/21 [History] Omeprazole [PriLOSEC] 40 mg PO DAILY #30 cap 10/22/21 [Rx] Sucralfate [Carafate] 1 gm PO BID #30 tablet 10/22/21 [Rx] [facility]ment[facility]Ref[facility] [place] [facility] Patient Instructions/Handouts: Diet for Stomach Ulcers and Gastritis (ED) Activity/Diet/Wound Care/Special Instructions: Avoid ibuprofen, naproxen, aspirin for stomach ulcers until treatment completed Discharge Disposition: HOME SELF-CARE
--- NOTE | 2021-10-22 09:50 | P.PCN ---
Date of Procedure: 10/22/21 Description of Procedure: PREOPERATIVE DIAGNOSIS: Gastroesophageal reflux disease. Morbid obesity. POSTOPERATIVE DIAGNOSIS: Gastroesophageal reflux disease. Morbid obesity. Gastric ulcers without bleeding OPERATION: Esophagogastroscopy with biopsies along antrum. SURGEON: Teresa Quinones MD ANESTHESIA: MAC. INDICATIONS: The patient is a 46-year-old male who presents with reflux disease. Benefits and risks of the procedure were described. Informed consent was obtained. DESCRIPTION: The patient was brought into the endoscopy suite and laid in the left lateral decubitus position. An Olympus gastroscope was passed along the posterior oropharynx down to the distal esophagus where the squamocolumnar junction was encountered at 40 cm from the incisors. The stomach was entered and no bile reflux was found. Additional findings are listed below. Biopsies with cold forceps were obtained of the antrum. Pressure is applied to the pylorus without entry into the duodenum despite multiple attempts. Retroflexion of the scope confirmed Hill grade 2 lower esophageal valve. The squamocolumnar junction demonstrated LA grade A erosive esophagitis. The stomach was desufflated. The patient tolerated the procedure well. FINDINGS: Squamocolumnar junction 43 cm from the incisors. Diaphragmatic hiatus at 43 cm. Hill grade 2 lower esophageal valve. LA grade A erosive esophagitis. Chronic gastric ulcers less than 5 mm, multiple along antrum with biopsies obtained RECOMMENDATIONS: Discontinue NSAIDs during treatment Omeprazole 40 mg daily Carafate 1 g twice a day
[2021-10-22 09:55] VITALS: RESP 18
[2021-10-22 10:13] VITALS: BP 108/74; PULSE 71
== END 2021-10-22 10:42 | disposition home or self-care (01) ==
LOC: ORWHC2ENDO 07:58
PROVIDERS: ATTEND Surgery Plastic and Reconstructive Surgery
DX: K21.00 Gastro-esophageal reflux disease with esophagitis, without bleeding (principal); K25.7 Chronic gastric ulcer without hemorrhage or perforation; Z12.11 Encounter for screening for malignant neoplasm of colon; K64.0 First degree hemorrhoids; Z80.0 Family history of malignant neoplasm of digestive organs; I10 Essential (primary) hypertension; J45.909 Unspecified asthma, uncomplicated; M79.7 Fibromyalgia; G47.30 Sleep apnea, unspecified; M10.9 Gout, unspecified; M17.0 Bilateral primary osteoarthritis of knee; C92.10 Chronic myeloid leukemia, BCR/ABL-positive, not having achieved remission; E66.01 Morbid (severe) obesity due to excess calories; Z68.42 Body mass index [BMI] 45.0-49.9, adult; Z86.16 Personal history of COVID-19; Z79.899 Other long term (current) drug therapy; Z79.82 Long term (current) use of aspirin; Z88.0 Allergy status to penicillin; Z88.2 Allergy status to sulfonamides; Z87.01 Personal history of pneumonia (recurrent); Z80.42 Family history of malignant neoplasm of prostate
CPT/HCPCS: 88305; 43239; J2250; J2704; J2001; G0105

== ENCOUNTER → 2021-11-19 | Outpatient (CLI) | payer BC ==
[2021-11-19 13:42] VITALS: BMI 44.6
== END ==
LOC: BARWHC3 08:44
PROVIDERS: ATTEND Surgery Plastic and Reconstructive Surgery
DX: E66.01 Morbid (severe) obesity due to excess calories (principal); Z71.3 Dietary counseling and surveillance; Z68.41 Body mass index [BMI] 40.0-44.9, adult; Z88.0 Allergy status to penicillin; Z88.2 Allergy status to sulfonamides
CPT/HCPCS: 97804

== ENCOUNTER → 2021-12-19 | Outpatient (CLI) | payer BC ==
[2021-12-19 16:10] VITALS: BP 128/84; PULSE 99; TEMP 99.4; BMI 44.4
--- NOTE | 2021-12-19 17:18 | P.BASOAP ---
Subjective Progress Note Date: 12/19/21 DATE OF SERVICE: 12/19/2021 CHIEF COMPLAINT: Morbid obesity HISTORY OF PRESENT ILLNESS: Jamal Ward is a 46-year-old male who comes with lifelong morbid obesity. He presents with food diary journal. His protein intake is between 49 to 96 g daily. Carbohydrate intake less than 250 g daily. Patient's weight is stable. He is looking into the sleeve gastrectomy. At height of 5 feet 11 inches, ideal body weight is 178 pounds. His highest weight is 329 pounds, body mass index 46.0. He comes in 318 pounds from 326 pounds, 1 months ago. He has lost 8 pounds in 1 month. Her body mass index is 44.5. He is 140 pounds overweight. PAST MEDICAL HISTORY: 1. Morbid obesity due to excess calories 2. Body mass index 46.0 3. Fibromyalgia 4. Hypertensive heart disease 5. Chronic myelogenous leukemia 6. Depressive disorder 7. Osteoarthritis 8. Asthma 9. Chronic obstructive pulmonary disease 10. Generalized anxiety disorder 11. Motion sickness PAST SURGICAL HISTORY: 1. Cardiac catheterization HOME MEDICATIONS: Home Medications Medication Instructions Recorded Confirmed allopurinoL [Zyloprim] 300 mg PO DAILY 06/05/18 01/30/22 Bosutinib [Bosulif] 200 mg PO PC-SUPPER 02/21/21 01/30/22 Albuterol Inhaler [Ventolin Hfa 1 puff INHALATION DIRECTED PRN 09/12/21 0 01/30/22 Inhaler] Budesonide/Glycopyr/Formoterol 2 puff INHALATION BID 09/12/21 01/30/22 [Breztri Aerosphere Inhaler] DULoxetine HCL [Cymbalta] 60 mg PO BID 01/10/22 01/30/22 busPIRone HCL 10 mg PO BID 01/10/22 01/30/22 Previous Rx's Medication Instructions Recorded Acetaminophen Tab [Tylenol] 1,000 mg PO Q6HR PRN #30 tablet 01/14/22 Omeprazole [PriLOSEC] 40 mg PO DAILY #30 cap 01/14/22 Ondansetron Odt [Zofran Odt] 4 mg PO Q8HR PRN #9 tab 01/14/22 bisacodyL [Dulcolax] 5 mg PO DAILY PRN #10 tab 01/14/22 Lactulose [Cephulac] 20 gm PO BID #400 ml 01/16/22 SOCIAL HISTORY: Denies tobacco use. FAMILY HISTORY: No family history of ulcerative colitis disease or Crohn's disease. Family history of morbid obesity. No lupus in the family. His cousin had stomach cancer. His father has colon and prostate cancer. His had the sleeve. His brother in law had the gastric bypass. REVIEW OF ORGAN SYSTEMS: CONSTITUTIONAL: At height of 5 feet 11 inches, ideal body weight is 178 pounds. His highest weight is 329 pounds, body mass index 46.0. He comes in 329 pounds. Her body mass index is 46. He is 151 pounds overweight. HEENT: Denies any active troubles with vision or hearing. ENDOCRINE: Denies diabetes. Denies hypothyroidism. CARDIOVASCULAR: Denies past reports of palpitations or heart attacks or chest pain. Has hypertension. RESPIRATORY: Has asthma. Has chronic obstructive pulmonary lung disease. GASTROINTESTINAL: Denies any bright red blood per rectum. No diarrhea. No constipation. Has gastroesophageal reflux disease. GENITOURINARY: Denies bladder urgency. No recent blood in urine MUSCULOSKELETAL: Has lower back pain and joint pain. Has fibromyalgia. NEURO: Denies migraines. No seizure disorders. PSYCH: Has depression. No suicidal ideation. Has anxiety. RHEUMATOLOGIC: No lupus. No rheumatoid arthritis. HEMATOLOGIC: Denies any abnormal bleeding or bruising. Denies past history of DVTs. Has Chronic myelogenous leukemia SKIN: No rash. No skin cancer. PHYSICAL EXAM: VITAL SIGNS: Height 5 foot 11 inches, weight 326 pounds. BMI 45.6 Vital Signs Temp 99.4 F 12/19/21 16:07 Pulse 99 12/19/21 16:07 Resp BP 128/84 12/19/21 16:07 Pulse Ox FiO2 GENERAL: Well-developed in no acute distress. HEENT: No scleral icterus. Extraocular movements grossly intact. Hears conversational speech. No nasal drainage. NECK: Supple without lymphadenopathy. CHEST: Nonlabored respirations with equal bilateral excursions. CARDIOVASCULAR: Regular rate and regular rhythm. Distal 2+ pulses. ABDOMEN: Obese, soft, nontender, nondistended. MUSCULOSKELETAL: No clubbing, cyanosis. NEURO: No focal or lateralizing signs. Cranial nerves 2 through 12 grossly within normal limits. PSYCH: Appropriate affect. Alert and oriented to person, place and time. SKIN: Good skin turgor. Well perfused. ASSESSMENT: 1. Morbid obesity due to excess calories 2. Body mass index 46.0 to 44.6 3. Fibromyalgia 4. Hypertensive heart disease 5. Chronic myelogenous leukemia 6. Depressive disorder 7. Osteoarthritis 8. Asthma 9. Chronic obstructive pulmonary disease 10. Generalized anxiety disorder 11. Motion sickness 12. Gastric ulcers 13. Chronic gastritis PLAN: 1. Bariatric options between a sleeve, band and a Ab-en-Y gastric bypass were reviewed in detail. The patient elected for a sleeve gastrectomy. Robotic assisted approach described. 2. The [place] [facility] Data was also reviewed with benefits and risks as described. 3. An 8 page second-generation bariatric consent form was reviewed in detail including potential of bleeding, infection, leaks, adequate weight loss, nutritional deficiencies which the patient demonstrated understanding of the risks. 4. A 2 week high-protein low caloric 800 kcal diet described to address hepatomegaly. 5. Preoperative labs including complete metabolic panel and CBC with type and screen recommended. 6. DVT prophylaxis per [place] [facility]. 7. Antibiotic prophylaxis. 8. Inpatient hospitalization anticipated for more than 2 nights. 9. All questions and concerns were addressed with the patient. 10. He is at elevated risk for perioperative complications due to leukemia 11. Overall, patient has expressed understanding of bariatric care including postoperative diet and commitment of lifestyle. Patient should benefit from surgical intervention for correction of her morbid obesity. 12. Recommen exercise such as fidgeting including dietary strict follow-up. 13. Adequate fluid intake over 64 ounces described for successful surgery. 14. Perioperative risks including complications reviewed. 15. Anticipated follow-up in 4 weeks of recovery described. Consent signed. Objective - Vital Signs Vital signs: Vital Signs Temp 99.4 F 12/19/21 16:07 Pulse 99 12/19/21 16:07 Resp BP 128/84 12/19/21 16:07 Pulse Ox FiO2 Intake & Output 12/18/21 12/19/21 12/19/21 18:59 06:59 18:59 Weight 144.696 kg Assessment/Plan Plan: Date: 12/19/21 Initial Weight: 148.325 kg Initial BMI: 45.6 Current Weight: 144.696 kg Current BMI: 44.4 Type of Surgery: Total Volume in Band: Previous Volume: Volume Removed: Volume Added: Band Size:
== END ==
LOC: BARWHC3 15:30
PROVIDERS: ATTEND Surgery Plastic and Reconstructive Surgery
DX: E66.01 Morbid (severe) obesity due to excess calories (principal); Z68.42 Body mass index [BMI] 45.0-49.9, adult; I11.9 Hypertensive heart disease without heart failure; F32.A Depression, unspecified; M19.90 Unspecified osteoarthritis, unspecified site; J44.9 Chronic obstructive pulmonary disease, unspecified; F41.1 Generalized anxiety disorder; K21.9 Gastro-esophageal reflux disease without esophagitis; M79.7 Fibromyalgia; C92.10 Chronic myeloid leukemia, BCR/ABL-positive, not having achieved remission; T75.3XXA Motion sickness, initial encounter; K25.9 Gastric ulcer, unspecified as acute or chronic, without hemorrhage or perforation; K29.70 Gastritis, unspecified, without bleeding
CPT/HCPCS: 99211

== ENCOUNTER → 2021-12-29 | Outpatient (CLI) | payer BC ==
[2021-12-29 17:16] LABS: African American GFR (CKD) 104.1 (60.0-200.0); Albumin 4.9 g/dL (3.8-4.9); Albumin/Globulin Ratio 1.63 (1.60-3.17); Anion Gap 12.9 mmol/L (10.00-18.00); BUN/Creat Ratio 14.8 Ratio (12.00-20.00); Basophils # (A) 0.07 X 10*3/uL (0.00-0.10); Basophils % (A) 0.7 %; Blood Urea Nitrogen 14.8 mg/dL (9.0-27.0); Calcium 9.7 mg/dL (8.7-10.3); Carbon Dioxide 25.1 mmol/L (20.0-27.5); Eosinophils # (A) 0.15 X 10*3/uL (0.04-0.35); Eosinophils % (A) 1.4 %; HCT 45.8 % (39.6-50.0); HGB 14.1 g/dL (13.0-17.0); Immature Grans, Automated 0.5 %; Lymphocytes # (A) 2.04 X 10*3/uL (0.90-5.00); Lymphocytes % (A) 19.4 %; MCH 27.1 pg (27.0-32.0); MCHC 30.8 g/dL (32.0-37.0); MCV 87.9 fL (80.0-97.0); Monocytes # (A) 0.98 X 10*3/uL (0.20-1.00); Monocytes % (A) 9.3 %; NRBC Per 100 WBC 0 /100 WBCS (0.0-0.0); Neutrophils # (A) 7.22 X 10*3/uL (1.80-7.70); Neutrophils % (A) 68.7 %; Non-African American GFR(CKD) 89.9 (60.0-200.0); Platelet Count 155 X 10*3/uL (140-440); Potassium 4.2 mmol/L (3.5-5.5); RBC 5.21 X 10*6/uL (4.40-5.60); RDW 13.3 % (11.5-14.5); Total Bilirubin 0.5 mg/dL (0.30-1.20); Total Protein 7.9 g/dL (6.2-8.2); WBC 10.51 X 10*3/uL (4.50-10.00)
== END | disposition home or self-care (01) ==
LOC: LABPAT 09:21
PROVIDERS: ATTEND Surgery Plastic and Reconstructive Surgery
DX: Z01.812 Encounter for preprocedural laboratory examination (principal)
CPT/HCPCS: 80053; 85025

== ENCOUNTER 2022-01-07 08:00 | Inpatient (IN) | payer BC ==
[2021-12-31 13:06] VITALS: BMI 42.5
--- NOTE | 2022-01-07 07:49 | P.GSHP ---
History of Present Illness H&P Date: 01/07/22 CHIEF COMPLAINT: Morbid obesity HISTORY OF PRESENT ILLNESS: Jamal Ward is a 46-year-old male who comes with lifelong morbid obesity. He has chronic myelogenous leukemia. He goes to [facility] to see his oncologist. He completed bariatric risk assessment including clearances from his oncologist. He has completed medical supervised weight loss. At height of 5 feet 11 inches, ideal body weight is 178 pounds. His highest weight is 329 pounds, body mass index 46.0. He is 151 pounds overweight. PAST MEDICAL HISTORY: 1. Morbid obesity due to excess calories 2. Body mass index 46.0 3. Fibromyalgia 4. Hypertensive heart disease 5. Chronic myelogenous leukemia 6. Depressive disorder 7. Osteoarthritis 8. Asthma 9. Chronic obstructive pulmonary disease 10. Generalized anxiety disorder 11. Motion sickness PAST SURGICAL HISTORY: 1. Cardiac catheterization HOME MEDICATIONS: ALLERGIES: SOCIAL HISTORY: Denies tobacco use. FAMILY HISTORY: No family history of ulcerative colitis disease or Crohn's disease. Family history of morbid obesity. No lupus in the family. His cousin had stomach cancer. His father has colon and prostate cancer. His had the sleeve. His brother in law had the gastric bypass. REVIEW OF ORGAN SYSTEMS: CONSTITUTIONAL: At height of 5 feet 11 inches, ideal body weight is 178 pounds. His highest weight is 329 pounds, body mass index 46.0. He comes in 329 pounds. Her body mass index is 46. He is 151 pounds overweight. HEENT: Denies any active troubles with vision or hearing. ENDOCRINE: Denies diabetes. Denies hypothyroidism. CARDIOVASCULAR: Denies past reports of palpitations or heart attacks or chest pain. Has hypertension. RESPIRATORY: Has asthma. Has chronic obstructive pulmonary lung disease. GASTROINTESTINAL: Denies any bright red blood per rectum. No diarrhea. No constipation. Has gastroesophageal reflux disease. GENITOURINARY: Denies bladder urgency. No recent blood in urine MUSCULOSKELETAL: Has lower back pain and joint pain. Has fibromyalgia. NEURO: Denies migraines. No seizure disorders. PSYCH: Has depression. No suicidal ideation. Has anxiety. RHEUMATOLOGIC: No lupus. No rheumatoid arthritis. HEMATOLOGIC: Denies any abnormal bleeding or bruising. Denies past history of DVTs. Has Chronic myelogenous leukemia SKIN: No rash. No skin cancer. PHYSICAL EXAM: VITAL SIGNS: Height 5 foot 11 inches, weight 329 pounds. BMI 46.0 GENERAL: Well-developed in no acute distress. HEENT: No scleral icterus. Extraocular movements grossly intact. Hears conversational speech. No nasal drainage. NECK: Supple without lymphadenopathy. CHEST: Nonlabored respirations with equal bilateral excursions. CARDIOVASCULAR: Regular rate and regular rhythm. Distal 2+ pulses. ABDOMEN: Obese, soft, nontender, nondistended. MUSCULOSKELETAL: No clubbing, cyanosis. NEURO: No focal or lateralizing signs. Cranial nerves 2 through 12 grossly within normal limits. PSYCH: Appropriate affect. Alert and oriented to person, place and time. SKIN: Good skin turgor. Well perfused. ASSESSMENT: 1. Morbid obesity due to excess calories 2. Body mass index 46.0 3. Fibromyalgia 4. Hypertensive heart disease 5. Chronic myelogenous leukemia 6. Depressive disorder 7. Osteoarthritis 8. Asthma 9. Chronic obstructive pulmonary disease 10. Generalized anxiety disorder 11. Motion sickness PLAN: 1. Bariatric options between a sleeve, band and a Ab-en-Y gastric bypass were reviewed in detail. The patient elected for a sleeve gastrectomy. Robotic assisted approach described. 2. The [place] [facility] Data was also reviewed with benefits and risks as described. 3. An 8 page second-generation bariatric consent form was reviewed in detail including potential of bleeding, infection, leaks, adequate weight loss, nutritional deficiencies which the patient demonstrated understanding of the risks. 4. A 2 week high-protein low caloric 800 kcal diet described to address hepatomegaly. 5. Preoperative labs including complete metabolic panel and CBC with type and screen recommended. 6. DVT prophylaxis per [place] [facility]. 7. Antibiotic prophylaxis. 8. Inpatient hospitalization anticipated for more than 2 nights. 9. All questions and concerns were addressed with the patient. 10. The patient is at elevated risk for perioperative complications with sleep apnea and hypertensive heart disease. 11. Overall, patient has expressed understanding of bariatric care including postoperative diet and commitment of lifestyle. Patient should benefit from surgical intervention for correction of morbid obesity. 12. He is elevated risk due to pre-existing comorbid conditions Past Medical History Past Medical History: Cancer, Fibromyalgia, Hyperlipidemia, Hypertension Additional Past Medical History / Comment(s): CML, GOUT, HX OF HAVING MONO, pneumonia History of Any Multi-Drug Resistant Organisms: None Reported Past Surgical History: Heart Catheterization Additional Past Surgical History / Comment(s): Heart cath 2013. Dental work, EGD, COLONOSCOPY Past Anesthesia/Blood Transfusion Reactions: No Reported Reaction, Motion Sickness Smoking Status: Never smoker - Past Family History Father Family Medical History: Cancer Additional Family Medical History / Comment(s): prostate, colon cancers Medications and Allergies Home Medications Medication Instructions Recorded Confirmed Type Cold Eeze (Unknown Dose) 1 tab PO TID PRN 06/05/18 12/31/21 History DULoxetine HCL [Cymbalta] 60 mg PO BID 06/05/18 12/31/21 History Multivitamin,Therapeutic [Thera] 1 tab PO DAILY 06/05/18 12/31/21 History Telmisartan/Hydrochlorothiazid 1 tab PO DAILY@1200 06/05/18 12/31/21 History [Micardis Hct 80-25 mg Tablet] allopurinoL [Zyloprim] 300 mg PO DAILY 06/05/18 12/31/21 History Bosutinib [Bosulif] 200 mg PO PC-SUPPER 02/21/21 12/31/21 History Potassium Chloride ER [K-Dur 20] 20 meq PO DAILY 02/21/21 12/31/21 History Verapamil HCl [Verapamil ER] 180 mg PO PC-SUPPER 02/21/21 12/31/21 History busPIRone HCl [Buspar] 5 mg PO BID 02/21/21 12/31/21 History Albuterol Inhaler [Ventolin Hfa 1 puff INHALATION RT-TID PRN 09/12/21 12/31/21 History Inhaler] Budesonide/Glycopyr/Formoterol 2 puff INHALATION BID 09/12/21 12/31/21 History [Breztri Aerosphere Inhaler] Sucralfate [Carafate] 1 gm PO BID #30 tablet 10/22/21 12/31/21 Rx Allergies Allergy/AdvReac Type Severity Reaction Status Date / Time Penicillins Allergy Rash/Hives Verified 10/22/21 08:49 Sulfa (Sulfonamide AdvReac Rash/Hives Verified 10/22/21 08:49 Antibiotics)
[~2022-01-07 08:00] MED LIST changes: +ACETAMINOPHEN TAB 500 MG TAB PO PRN; +CHLORHEXIDINE GLUCONATE 15 ML CUP MUCOUS MEM PRN; +DEXAMETHASONE SOD PHOSPHATE 4 MG/ML 1 ML VIAL IV ONE; +ENOXAPARIN 40 MG/0.4 ML SYRINGE SQ PRN; +GABAPENTIN 300 MG CAP PO PRN; +HYDROmorphone 0.5 MG/0.5 ML SYRINGE IVP PRN; +MIDAZOLAM 2 MG/2 ML VIAL IV PRN; +ONDANSETRON 4 MG/2 ML VIAL IVP ONE; +PANTOPRAZOLE 40 MG/10 ML VIAL IVP PRN; +TAMSULOSIN 0.4 MG CAP.ER.24H PO PRN; +ceFAZolin 3 GM in SODIUM CHLORIDE 0.9% 100 ML IVPB PRN
[2022-01-07] MEDS ORDERED: fentaNYL (PF) 50 MCG/ML 2 ML AMP ONE (10:00)
[2022-01-07] MEDS ORDERED: LIDOCAINE 2% INJ 20 MG/ML (2 ML VIAL) ONE (10:00)
[2022-01-07] MEDS ORDERED: MIDAZOLAM 2 MG/2 ML VIAL ONE (10:00)
[2022-01-07] MEDS ORDERED: SUCCINYLCHOLINE CHLORIDE 200 MG/10 ML VIAL IV ONE (10:00)
[2022-01-07] MEDS ORDERED: ePHEDrine 50 MG/ML 1 ML VIAL ONE (10:00)
[2022-01-07] MEDS ORDERED: SUGAMMADEX SODIUM 200 MG/2 ML SDV IV ONE (10:00)
[2022-01-07] MEDS ORDERED: ROCURONIUM 10 MG/ML (5 ML VIAL) IV ONE (10:00)
[2022-01-07] MEDS ORDERED: PROPOFOL 10 MG/ML 20 ML VIAL IV ONE (10:00)
[2022-01-07] MEDS ORDERED: PHENYLEPHRINE-0.9% NACL SYG 1,000 MCG/10 ML SYRINGE ONE (10:00)
--- NOTE | 2022-01-07 10:54 | P.PN ---
Progress Note - Text Progress Note Date: 01/07/22 Upon induction of anesthesia, patient's blood pressure maintained 60s over 30s despite multiple medications. Several anesthesiologists present to investigate. Despite medications, systolic blood pressures remained in the 70s. No incisions were made. No local anesthesia was given. Due to unresponsive hypotension despite fluids and medications, surgery is canceled. Patient will be admitted for cardiac reevaluation. Findings discussed with his . Case canceled after induction of anesthesia.
[2022-01-07] MEDS ORDERED: LACTATED RINGERS 1,000 ML IV ONE (11:03)
[2022-01-07] MEDS ORDERED: CALCIUM CHLORIDE 100 MG/ML 10 ML SYRINGE IV ONE (11:20)
[2022-01-07] MEDS: PHENYLEPHRINE-0.9% NACL SYG 1,000 MCG/10 ML SYRINGE IV ONE ×3 (11:26→11:53)
[2022-01-07] MEDS ORDERED: NALOXONE 0.4 MG/ML 1 ML VIAL IV PRN (11:40)
[2022-01-07] MEDS ORDERED: ONDANSETRON 4 MG/2 ML VIAL IVP PRN (11:40)
[2022-01-07 12:44] LABS: Basophils % (A) 0 %; Eosinophils # (A) 0.1 k/uL (0-0.7); Eosinophils % (A) 1 %; HCT 39.9 % (39.0-53.0); HGB 12.6 gm/dL (13.0-17.5); Hypochromasia Slight; Lymphocytes # (A) 1.2 k/uL (1.0-4.8); Lymphocytes % (A) 13 %; MCH 28.9 pg (25.0-35.0); MCHC 31.6 g/dL (31.0-37.0); MCV 91.4 fL (80.0-100.0); Mean Platelet Volume 12.2; Monocytes # (A) 0.3 k/uL (0-1.0); Monocytes % (A) 3 %; Neutrophils # (A) 7.7 k/uL (1.3-7.7); Neutrophils % (A) 82 %; Platelet Count 129 k/uL (150-450); RBC 4.36 m/uL (4.30-5.90); RDW 13.7 % (11.5-15.5); WBC 9.4 k/uL (3.8-10.6)
--- NOTE | 2022-01-07 13:23 | P.CRDCN ---
History of Present Illness History of present illness: HISTORY OF PRESENTING ILLNESS This is a pleasant 46-year-old male past medical history significant for hypertension, dyslipidemia, chronic myelogenous leukemia, COPD/Asthma, Morbid obesity. He follows in the office with Dr. Peters. We have been asked to see in consultation for hypotension. Patient presented to the hospital for planned Bariatric sleeve gastrectomy with Dr. Quinones today. He was seen in the office by Dr. Peters for pre-operative clearance. Patient seen and examined at bedside, he is alert and oriented x3, no complaints. He was given IV Fluids and BP has improved to 97/51. He did have some mild lightheadedness this morning. Patient denies any dizziness, chest pain, shortness of breath, syncope or near syncope, abdominal pain, or nausea. He did take his BP medications last night, has not been eating and drinking as much secondary to surgery was on a clear liquid t. Medications documented that were given were tylenol, calcium chloride, decadron, gabapentin, zofran, phenylephrine, flomax. Patient given 500cc of LR and BP improved. DIAGNOSTICS * Laboratory reviewed, sodium 137, potassium 4.0. Other labs pending * Current home cardiac medications include Verapamil 180mg daily, Telmisartan/Hctz 80-25mg daily, potassium chloride 20meq daily * Echocardiogram in the office 09/2021 revealed EF 55%, mild LVH, trace to mild mitral regurgitation, mild tricuspid regurgitation, moderate increased pulmonary artery systolic pressure 45 mmHg * 24 hour ambulatory Monitors in the office 09/2021 revealed sinus rhythm * Lexiscan stress test 10/2018 revealed no evidence of stress-induced ischemia REVIEW OF SYSTEMS At the time of my exam: CONSTITUTIONAL: Denies fever or chills. CARDIOVASCULAR: Denies chest pain, shortness of breath, orthopnea, PND or palpitations. RESPIRATORY: Denies cough. GASTROINTESTINAL: Denies abdominal pain, diarrhea, constipation, nausea or vomiting. MUSCULOSKELETAL: Denies myalgias. NEUROLOGIC: Denies numbness, tingling, headacbe or weakness. ENDOCRINE: Denies fatigue, weight change, polydipsia or polyurina. GENITOURINARY: Denies burning, hematuria or urgency with micturation. HEMATOLOGIC: + history of anemia, Denies bleeding. PHYSICAL EXAMINATION Blood pressure 97/51 HR 93, afebrile 96% on room air CONSTITUTIONAL: No apparent distress. HEENT: Head is normocephalic. Pupils are equal, round. Sclerae anicteric. Mucous membranes of the mouth are moist. No JVD. No carotid bruit. CHEST EXAMINATION: Lungs are clear to auscultation. No chest wall tenderness is noted on palpation or with deep breathing. HEART EXAMINATION: Regular rate and rhythm. S1, S2 heard. No murmurs, gallops or rub. ABDOMEN: Soft, nontender. Positive bowel sounds. EXTREMITIES: 2+ peripheral pulses, no lower extremity edema and no calf tenderness. NEUROLOGIC EXAMINATION: Patient is awake, alert and oriented x3. ASSESSMENT Hypotension History of hypertension Dyslipidemia History of Chronic myelogenous leukemia History of COPD/Asthma Morbid obesity PLAN Continue IV fluids Hold home antihypertensive medications at this time Monitor BP CBC and CMP, electrolyte labs pending If patient remains stable, blood pressure improves from a cardiology perspective he can proceed with surgery Further recommendations based on clinical course Nurse practitioner note has been reviewed by physician. Signing provider agrees with the documented findings, assessment, and plan of care. Past Medical History Past Medical History: Cancer, Fibromyalgia, Hyperlipidemia, Hypertension Additional Past Medical History / Comment(s): CML, GOUT, HX OF HAVING MONO, pneumonia History of Any Multi-Drug Resistant Organisms: None Reported Past Surgical History: Heart Catheterization Additional Past Surgical History / Comment(s): Heart cath 2013. Dental work, EGD, COLONOSCOPY Past Anesthesia/Blood Transfusion Reactions: No Reported Reaction, Motion Sickness Smoking Status: Never smoker - Past Family History Father Family Medical History: Cancer Additional Family Medical History / Comment(s): prostate, colon cancers Medications and Allergies Home Medications Medication Instructions Recorded Confirmed Type Cold Eeze (Unknown Dose) 1 tab PO TID PRN 06/05/18 12/31/21 History DULoxetine HCL [Cymbalta] 60 mg PO BID 06/05/18 12/31/21 History Multivitamin,Therapeutic [Thera] 1 tab PO DAILY 06/05/18 12/31/21 History Telmisartan/Hydrochlorothiazid 1 tab PO DAILY@1200 06/05/18 12/31/21 History [Micardis Hct 80-25 mg Tablet] allopurinoL [Zyloprim] 300 mg PO DAILY 06/05/18 12/31/21 History Bosutinib [Bosulif] 200 mg PO PC-SUPPER 02/21/21 12/31/21 History Potassium Chloride ER [K-Dur 20] 20 meq PO DAILY 02/21/21 12/31/21 History Verapamil HCl [Verapamil ER] 180 mg PO PC-SUPPER 02/21/21 12/31/21 History busPIRone HCl [Buspar] 5 mg PO BID 02/21/21 12/31/21 History Albuterol Inhaler [Ventolin Hfa 1 puff INHALATION RT-TID PRN 09/12/21 12/31/21 History Inhaler] Budesonide/Glycopyr/Formoterol 2 puff INHALATION BID 09/12/21 12/31/21 History [Breztri Aerosphere Inhaler] Sucralfate [Carafate] 1 gm PO BID #30 tablet 10/22/21 12/31/21 Rx Allergies Allergy/AdvReac Type Severity Reaction Status Date / Time Penicillins Allergy Rash/Hives Verified 10/22/21 08:49 Sulfa (Sulfonamide AdvReac Rash/Hives Verified 10/22/21 08:49 Antibiotics) Physical Exam Vitals: Vital Signs Temp Pulse Resp BP Pulse Ox 01/07/22 12:34 93 97/51 96 01/07/22 12:16 91 94/43 96 01/07/22 12:08 92 92/44 97 01/07/22 12:00 90 90/42 97 01/07/22 11:53 90 91/50 97 01/07/22 11:45 77/38 01/07/22 11:37 90 85/40 97 01/07/22 11:31 90 88/45 97 01/07/22 11:22 86 87/42 01/07/22 11:19 88 85/41 01/07/22 11:15 86 78/32 01/07/22 11:11 90 92/46 01/07/22 11:08 92 85/45 01/07/22 10:57 97 F L 95 12 85/46 99 01/07/22 08:25 97.2 F L 96 20 127/60 96 Intake and Output 01/06/22 01/07/22 01/07/22 22:59 06:59 14:59 Intake Total 700 Balance 700 Intake: IV 700 Other: Weight 136.8 kg Results 01/07/22 08:35 Comprehensive Metabolic Panel 01/07/22 Range/Units 08:35 Sodium 137 (137-145) mmol/L Potassium 4.0 (3.5-5.1) mmol/L Chloride 103 (98-107) mmol/L Carbon Dioxide 25 (22-30) mmol/L Current Medications Generic Name Dose Route Start Last Admin Trade Name Freq PRN Reason Stop Dose Admin Enoxaparin Sodium 40 mg 01/07/22 21:45 Enoxaparin 40 Mg/0.4 Ml Syringe SQ Q12HR DEMAR Hydromorphone HCl 0.5 mg 01/07/22 05:54 Hydromorphone 0.5 Mg/0.5 Ml Syringe IVP 01/08/22 05:55 Q5M PRN Phase 1 or 2 - Pain Control Cefazolin Sodium 3 gm/ Sodium 100 mls @ 200 mls/hr 01/07/22 05:00 Chloride IVPB 01/07/22 23:00 ONCE PRN Pre-Op Lactated Ringer's 1,000 mls @ 20 mls/hr 01/07/22 05:54 01/07/22 08:35 Lactated Ringers IV 200 mls .Q24H DEMAR Administration Potassium Chloride/Sodium Chloride 1,000 mls @ 150 mls/hr 01/07/22 13:30 Ns-Kcl 20 Meq/L Iv Solution IV 01/08/22 07:59 .Q6H40M DEMAR Potassium Chloride/Sodium Chloride 1,000 mls @ 100 mls/hr 01/08/22 08:00 Ns-Kcl 20 Meq/L Iv Solution IV .Q10H DEMAR Lidocaine HCl 0.1 ml 01/07/22 05:54 01/07/22 08:35 Lidocaine 1% (10mg/Ml) For Iv Start INTRADERMA 0.1 ml PER PROTOCOL PRN Administration IV Start Midazolam HCl 2 mg 01/07/22 05:54 Midazolam 2 Mg/2 Ml Vial IV 01/08/22 05:55 ONCE PRN Pre-Op Anxiety Naloxone HCl 0.2 mg 01/07/22 11:40 Naloxone 0.4 Mg/Ml 1 Ml Vial IV Q2M PRN Opioid Reversal Ondansetron HCl 4 mg 01/07/22 11:40 Ondansetron 4 Mg/2 Ml Vial IVP Q8HR PRN Nausea And Vomiting Intake and Output 01/06/22 01/07/22 01/07/22 22:59 06:59 14:59 Intake Total 700 Balance 700 Intake: IV 700 Other: Weight 136.8 kg Patient Weight 01/08/22 06:59 Weight 136.8 kg 01/07/22 08:35
[2022-01-07 13:44] LABS: ALT 35 U/L (4-49); AST 33 U/L (17-59); African American GFR (CKD) 81 (>60 ml/min/1.73 sqM); Albumin 4.3 g/dL (3.5-5.0); Albumin/Globulin Ratio 1.7; Alkaline Phosphatase 46 U/L (38-126); Anion Gap 8 mmol/L; Blood Urea Nitrogen 13 mg/dL (9-20); Calcium 9.6 mg/dL (8.4-10.2); Carbon Dioxide 27 mmol/L (22-30); Chloride 102 mmol/L (98-107); Globulin 2.5 g/dL; Glucose 93 mg/dL (74-99); Magnesium 1.7 mg/dL (1.6-2.3); Non-African American GFR(CKD) 70 (>60 ml/min/1.73 sqM); Phosphorus 3.1 mg/dL (2.5-4.5); Potassium 4.2 mmol/L (3.5-5.1); Sodium 137 mmol/L (137-145); Total Bilirubin 0.5 mg/dL (0.2-1.3); Total Protein 6.8 g/dL (6.3-8.2)
[2022-01-07 13:55] LABS: Large Platelets Present
[2022-01-07] MEDS: 0.9% NACL WITH KCL 20 MEQ/L 1,000 ML IV SCH ×2 (14:10→22:18)
[2022-01-07] MEDS: LACTATED RINGERS 1,000 ML IV SCH (14:11)
--- NOTE | 2022-01-07 17:18 | CA ---
Transthoracic Echo Report Name: Jamal Ward Age: 46 Gender: M : 1975 Exam Date: 01/07/2022 12:01 Exam Location: [place] [facility] Ht (in): 71 Wt (lb): 301 Ordering Physician: Teresa Quinones MD Attending/Referring Phys: [id number] Bean [employer] Litzy Bansal RDCS Procedure CPT: Indications: persistent hypotension Cardiac Hx: Technical Quality: Technically difficult study Contrast 1: Lumason Total Dose (mL): 3 Contrast 2: Total Dose (mL): MEASUREMENTS (Male / Female) Normal Values 2D ECHO LV Diastolic Diameter PLAX 4.0 cm 4.2 - 5.9 / 3.9 - 5.3 cm LV Systolic Diameter PLAX 2.6 cm IVS Diastolic Thickness 1.6 cm 0.6 - 1.0 / 0.6 - 0.9 cm LVPW Diastolic Thickness 1.5 cm 0.6 - 1.0 / 0.6 - 0.9 cm LV Relative Wall Thickness 0.8 LA Volume 62.0 cm??? 18 - 58 / 22 - 52 cm??? DOPPLER AV Peak Velocity 166.9 cm/s AV Peak Gradient 11.1 mmHg LVOT Peak Velocity 111.4 cm/s LVOT Peak Gradient 5.0 mmHg MV Area PHT 6.6 cm??? Mitral E Point Velocity 95.1 cm/s Mitral A Point Velocity 64.1 cm/s Mitral E to A Ratio 1.5 MV Deceleration Time 114.8 ms MV E' Velocity 9.2 cm/s Mitral E to MV E' Ratio 10.3 FINDINGS Left Ventricle Moderately increased left ventricular wall thickness. Normal left ventricular systolic function with no obvious regional wall motion abnormalities. Left ventricular ejection fraction is estimated at 55-60 %. Right Ventricle Normal right ventricular size and function. Right ventricular systolic pressure within normal limits. Right Atrium Normal right atrial size. Left Atrium Mildly increased left atrial volume. No evidence for an atrial septal defect. Mitral Valve Structurally normal mitral valve. Trace mitral regurgitation. Aortic Valve No aortic stenosis. Aortic valve not well visualized. Tricuspid Valve Mild tricuspid regurgitation. Pulmonic Valve Trace pulmonic regurgitation. Pericardium No pericardial effusion. Aorta Aortic root and proximal ascending aorta not well visualized. CONCLUSIONS Normal LV systolic function Previewed by: Dr. Ambrocio Eden MD (Electronically Signed) Final Date: 07 January 2022 17:17
[2022-01-07] MEDS ORDERED: BOSUTINIB 100 MG PO SCH (18:30)
[2022-01-07] MEDS: ENOXAPARIN 40 MG/0.4 ML SYRINGE SQ SCH (19:31)
[2022-01-07] MEDS: busPIRone HCl 5 MG TAB PO SCH (19:31)
[2022-01-07] MEDS: DULoxetine HCL 60 MG CAPSULE.DR PO SCH (19:31)
[2022-01-07] MEDS: ACETAMINOPHEN TAB 325 MG TAB PO PRN (20:04)
[2022-01-07] MEDS: IPRATROPIUM 0.5 MG/2.5 ML NEBU INHALATION SCH (21:22)
[2022-01-07] MEDS: SYMBICORT 160-4.5 MCG INHALER INHALATION SCH (21:22)
[2022-01-08 02:23] VITALS: RESP 17
[2022-01-08] MEDS: LACTATED RINGERS 1,000 ML IV SCH (06:54)
[2022-01-08] MEDS: 0.9% NACL WITH KCL 20 MEQ/L 1,000 ML IV SCH (06:54)
[2022-01-08] MEDS: busPIRone HCl 5 MG TAB PO SCH (07:08)
[2022-01-08] MEDS: DULoxetine HCL 60 MG CAPSULE.DR PO SCH (07:09)
[2022-01-08] MEDS: ENOXAPARIN 40 MG/0.4 ML SYRINGE SQ SCH (07:09)
[2022-01-08] MEDS: IPRATROPIUM 0.5 MG/2.5 ML NEBU INHALATION SCH ×2 (08:00→11:57)
[2022-01-08] MEDS ORDERED: 0.9% NACL WITH KCL 20 MEQ/L 1,000 ML IV SCH (08:00)
[2022-01-08] MEDS: SYMBICORT 160-4.5 MCG INHALER INHALATION SCH (08:00)
[2022-01-08 08:27] VITALS: BP 134/80; PULSE 100; TEMP 97.9
[2022-01-08] MEDS ORDERED: allopurinoL 300 MG TAB PO SCH (09:00)
--- NOTE | 2022-01-08 09:13 | P.PN ---
Subjective This is a pleasant 46-year-old male past medical history significant for hypertension, dyslipidemia, chronic myelogenous leukemia, COPD/Asthma, Morbid obesity. He follows in the office with Dr. Peters. We have been asked to see in consultation for hypotension. Patient presented to the hospital for planned Bariatric sleeve gastrectomy with Dr. Quinones today. He was seen in the office by Dr. Peters for pre-operative clearance. Patient seen and examined at bedside, he is alert and oriented x3, no complaints. He was given IV Fluids and BP has improved to 97/51. He did have some mild lightheadedness this morning. He did take his BP medications last night, has not been eating and drinking as much secondary to surgery was on a clear liquid diet. Patient given 500cc of LR and BP improved. Patient seen and examined at bedside, no acute distress. He has no complaints. Vital signs are stable. BP improved with IV fluids BP 134/80 HR 100, febrile 97% on room air. Echo revealed EF 5560 %, trace mitral regurgitation Labs: WBC 9.4, hemoglobin 12.6, platelets 129, sodium 137, potassium 4.2, BUN 13, serum creatinine 1.23, troponin negative PHYSICAL EXAMINATION Blood pressure CONSTITUTIONAL: No apparent distress. HEENT: Head is normocephalic. Pupils are equal, round. Sclerae anicteric. Mucous membranes of the mouth are moist. No JVD. No carotid bruit. CHEST EXAMINATION: Lungs are clear to auscultation. No chest wall tenderness is noted on palpation or with deep breathing. HEART EXAMINATION: Regular rate and rhythm. S1, S2 heard. No murmurs, gallops or rub. ABDOMEN: Soft, nontender. Positive bowel sounds. EXTREMITIES: 2+ peripheral pulses, no lower extremity edema and no calf tenderness. NEUROLOGIC EXAMINATION: Patient is awake, alert and oriented x3. ASSESSMENT Hypotension, resolved, improved with IV fluids History of hypertension Dyslipidemia History of Chronic myelogenous leukemia History of COPD/Asthma Morbid obesity PLAN From a cardiology perspective, no further inpatient workup at this time, BP has improved, no contraindications to undergo surgery. Will restart BP medication as patient tolerates, patient likely needs to hold medication night/day of surgery if being discharged. Follow up outpatient with Dr. Peters. Nurse practitioner note has been reviewed by physician. Signing provider agrees with the documented findings, assessment, and plan of care. Objective - Vital Signs Vital signs: Vital Signs Temp 97.9 F 01/08/22 08:00 Pulse 100 01/08/22 08:00 Resp 17 01/08/22 08:00 BP 134/80 01/08/22 08:00 Pulse Ox 97 01/08/22 08:01 FiO2 Intake & Output 01/07/22 01/08/22 01/08/22 18:59 06:59 18:59 Intake Total 700 Balance 700 Weight 136.8 kg Intake: IV 700 Other: Voiding Method Toilet Toilet Toilet # Voids 1 1 # Bowel Movements 0 - Labs CBC & Chem 7: 01/07/22 12:22 01/07/22 13:06 Labs: Abnormal Lab Results - Last 24 Hours (Table) 01/07/22 Range/Units 12:22 Hgb 12.6 L (13.0-17.5) gm/dL Plt Count 129 L (150-450) k/uL
[2022-01-08 10:51] LABS: African American GFR (CKD) 108.3 (60.0-200.0); Anion Gap 12.3 mmol/L (10.00-18.00); Blood Urea Nitrogen 9.2 mg/dL (9.0-27.0); Calcium 9.5 mg/dL (8.7-10.3); Carbon Dioxide 25.7 mmol/L (20.0-27.5); Non-African American GFR(CKD) 93.5 (60.0-200.0); Phosphorus 4.3 mg/dL (2.4-5.1); Potassium 3.9 mmol/L (3.5-5.5)
[2022-01-08 11:14] LABS: Magnesium 1.9 mg/dL (1.5-2.4)
[2022-01-08 11:30] LABS: Basophils # (A) 0.03 X 10*3/uL (0.00-0.10); Basophils % (A) 0.2 %; Eosinophils # (A) 0.02 X 10*3/uL (0.04-0.35); Eosinophils % (A) 0.2 %; HCT 38.4 % (39.6-50.0); HGB 12.1 g/dL (13.0-17.0); Immature Grans, Automated 0.4 %; Lymphocytes # (A) 2.82 X 10*3/uL (0.90-5.00); Lymphocytes % (A) 22.9 %; MCH 27.8 pg (27.0-32.0); MCHC 31.5 g/dL (32.0-37.0); MCV 88.1 fL (80.0-97.0); Monocytes # (A) 1.27 X 10*3/uL (0.20-1.00); Monocytes % (A) 10.3 %; NRBC Per 100 WBC 0 /100 WBCS (0.0-0.0); Platelet Count 134 X 10*3/uL (140-440); RBC 4.36 X 10*6/uL (4.40-5.60); RDW 13.3 % (11.5-14.5); WBC 12.29 X 10*3/uL (4.50-10.00)
--- NOTE | 2022-01-08 13:08 | P.DS ---
Providers Date of admission: 01/07/22 08:04 Expected date of discharge: 01/08/22 Attending physician: Teresa Quinones Consults: 01/07/22 11:40 Consult Physician Stat Consulting Provider: Case Peters Consult Reason/Comments: Persistent hypotension Do you want consulting provider notified?: Yes Primary care physician: Gabino Hipolito [facility] Course: Discharge diagnosis 1. Morbid obesity due to excess calories 2. Body mass index 46.0 3. Fibromyalgia 4. Hypertensive heart disease 5. Chronic myelogenous leukemia 6. Depressive disorder 7. Osteoarthritis 8. Asthma 9. Chronic obstructive pulmonary disease 10. Generalized anxiety disorder 11. Motion sickness 12. Unresponsive hypotension improved with IV fluid hydration Hospital course Jamal Ward is a 46-year-old male who comes with lifelong morbid obesity. He has chronic myelogenous leukemia. Patient was initially scheduled to undergo a sleeve gastrectomy yesterday. However, upon induction of anesthesia patient's blood pressure dropped to 60s over 30s. Several anesthesiologists present to investigate. Despite medications. Blood pressure remained in the 70s. At that point surgery was canceled by the surgeon due to unresponsive hypotension despite fluids and medications. Cardiology was consulted. They've been in to evaluate patient. Patient did receive IV fluid hydration through the night. Blood pressure has shown improvement this morning. Cardiology did resume the verapamil. And recommend holding all blood pressure medications the night before and day of surgery. Blood pressure has improved. Patient is stable for discharge. Physician [employer] note has been reviewed by physician. Signing provider agrees with the documented findings, assessment, and plan of care. As above, patient presented for elective sleeve gastrectomy. During general induction from anesthesia, patient had persistent hypotension unresponsive to medications. Cardiology risk assessment was unremarkable for acute findings. Patient was cleared to undergo surgery. Overall, complete discontinuation of hypertensive medications advised per cardiology. Clinically, hypotension resolved. Patient was tolerating diet. He was stable for discharge. Patient Condition at Discharge: Stable Plan - Discharge Summary Discharge Rx Participant: Yes New Discharge Prescriptions: Continue allopurinoL [Zyloprim] 300 mg PO DAILY Bosutinib [Bosulif] 200 mg PO PC-SUPPER Budesonide/Glycopyr/Formoterol [Breztri Aerosphere Inhaler] 2 puff INHALATION BID Albuterol Inhaler [Ventolin Hfa Inhaler] 1 puff INHALATION DIRECTED PRN PRN Reason: Shortness Of Breath Discontinued Telmisartan/Hydrochlorothiazid [Micardis Hct 80-25 mg Tablet] 1 tab PO DAILY@1200 Potassium Chloride ER [K-Dur 20] 20 meq PO DAILY No Action DULoxetine HCL [Cymbalta] 60 mg PO BID busPIRone HCL 10 mg PO BID Acetaminophen [Tylenol] 325 mg PO DIRECTED PRN PRN Reason: Headache Discharge Medication List allopurinoL [Zyloprim] 300 mg PO DAILY 06/05/18 [History] Bosutinib [Bosulif] 200 mg PO PC-SUPPER 02/21/21 [History] Albuterol Inhaler [Ventolin Hfa Inhaler] 1 puff INHALATION DIRECTED PRN 09/12/21 [History] Budesonide/Glycopyr/Formoterol [Breztri Aerosphere Inhaler] 2 puff INHALATION BID 09/12/21 [History] Acetaminophen [Tylenol] 325 mg PO DIRECTED PRN 01/10/22 [History] DULoxetine HCL [Cymbalta] 60 mg PO BID 01/10/22 [History] busPIRone HCL 10 mg PO BID 01/10/22 [History] Activity/Diet/Wound Care/Special Instructions: Hold all BP meds the night before surgery and the day of surgery Continue liquid diet. Continue protein shakes. Discharge Disposition: HOME SELF-CARE
[2022-01-08] MEDS: ACETAMINOPHEN TAB 325 MG TAB PO PRN (13:32)
[2022-01-08] MEDS ORDERED: VERAPAMIL SR 180 MG TABLET.ER PO SCH (18:30)
== END 2022-01-08 14:14 | disposition home or self-care (01) | DRG 641 ==
LOC: 2ORMAIN 08:04 → 4SSUR 12:39
PROVIDERS: ADMIT Surgery Plastic and Reconstructive Surgery; ATTEND Surgery Plastic and Reconstructive Surgery
DX: E66.01 Morbid (severe) obesity due to excess calories (principal); C92.10 Chronic myeloid leukemia, BCR/ABL-positive, not having achieved remission; I95.9 Hypotension, unspecified; Z53.9 Procedure and treatment not carried out, unspecified reason; T75.3XXA Motion sickness, initial encounter; Z68.42 Body mass index [BMI] 45.0-49.9, adult; M79.7 Fibromyalgia; I10 Essential (primary) hypertension; F32.A Depression, unspecified; M19.90 Unspecified osteoarthritis, unspecified site; I08.1 Rheumatic disorders of both mitral and tricuspid valves; M10.9 Gout, unspecified; J44.9 Chronic obstructive pulmonary disease, unspecified; F41.1 Generalized anxiety disorder; E78.5 Hyperlipidemia, unspecified; Z79.899 Other long term (current) drug therapy; Z80.42 Family history of malignant neoplasm of prostate; Z87.01 Personal history of pneumonia (recurrent); Z88.2 Allergy status to sulfonamides; Z88.0 Allergy status to penicillin; Z88.8 Allergy status to other drugs, medicaments and biological substances
CPT/HCPCS: 80051; 80053; 82310; 82565; 83735; 84100; 84484; 84520; 85025; 86850; 86900; 86901; 93306

== ENCOUNTER 2022-01-11 06:09 | Inpatient (IN) | payer BC ==
[2022-01-10 08:59] VITALS: BMI 41.8
[~2022-01-11 06:09] MED LIST changes: -ACETAMINOPHEN TAB 500 MG TAB PO PRN; -CHLORHEXIDINE GLUCONATE 15 ML CUP MUCOUS MEM PRN; -ENOXAPARIN 40 MG/0.4 ML SYRINGE SQ PRN; -GABAPENTIN 300 MG CAP PO PRN; -HYDROmorphone 0.5 MG/0.5 ML SYRINGE IVP PRN; -LACTATED RINGERS 1,000 ML IV SCH; -PANTOPRAZOLE 40 MG/10 ML VIAL IVP PRN; -TAMSULOSIN 0.4 MG CAP.ER.24H PO PRN
--- NOTE | 2022-01-11 06:43 | P.GSHP ---
History of Present Illness H&P Date: 01/11/22 CHIEF COMPLAINT: Morbid obesity HISTORY OF PRESENT ILLNESS: Jamal Ward is a 46-year-old male with chronic myelogenous leukemia. He presented to the bariatric program for sleeve gastrectomy. He completed risk assessment. Four days ago, patient had undergone anesthesia where he had persistent hypotension despite medications. His procedure was canceled prior transfusion. Cardiology consultation was obtained. Review of his medications demonstrated adverse events from his hypertensive medications were identified. Patient has had no further hypotensive events. He has been cleared by cardiology to proceed with this procedure today. He presents today for sleeve gastrectomy. At height of 5 feet 11 inches, ideal body weight is 178 pounds. His highest weight is 329 pounds, body mass index 46.0. He is 151 pounds overweight. PAST MEDICAL HISTORY: 1. Morbid obesity due to excess calories 2. Body mass index 46.0 3. Fibromyalgia 4. Hypertensive heart disease 5. Chronic myelogenous leukemia 6. Depressive disorder 7. Osteoarthritis 8. Asthma 9. Chronic obstructive pulmonary disease 10. Generalized anxiety disorder 11. Motion sickness PAST SURGICAL HISTORY: 1. Cardiac catheterization HOME MEDICATIONS: Home Medications Medication Instructions Recorded Confirmed allopurinoL [Zyloprim] 300 mg PO DAILY 06/05/18 01/10/22 Bosutinib [Bosulif] 200 mg PO PC-SUPPER 02/21/21 01/10/22 Albuterol Inhaler [Ventolin Hfa 1 puff INHALATION DIRECTED PRN 09/12/21 01/10/22 Inhaler] Budesonide/Glycopyr/Formoterol 2 puff INHALATION BID 09/12/21 01/10/22 [Breztri Aerosphere Inhaler] Acetaminophen [Tylenol] 325 mg PO DIRECTED PRN 01/10/22 01/10/22 DULoxetine HCL [Cymbalta] 60 mg PO BID 01/10/22 01/10/22 busPIRone HCL 10 mg PO BID 01/10/22 01/10/22 ALLERGIES: Allergies Allergy/AdvReac Type Severity Reaction Status Date / Time Penicillins Allergy Rash/Hives Verified 01/10/22 08:24 lactose AdvReac Nausea & Verified 01/10/22 08:24 Vomiting & Diarrhea Sulfa (Sulfonamide AdvReac Rash/Hives Verified 01/10/22 08:24 Antibiotics) SOCIAL HISTORY: Denies tobacco use. FAMILY HISTORY: No family history of ulcerative colitis disease or Crohn's disease. Family history of morbid obesity. No lupus in the family. His cousin had stomach cancer. His father has colon and prostate cancer. His had the sleeve. His brother in law had the gastric bypass. REVIEW OF ORGAN SYSTEMS: CONSTITUTIONAL: At height of 5 feet 11 inches, ideal body weight is 178 pounds. His highest weight is 329 pounds, body mass index 46.0. He comes in 329 pounds. Her body mass index is 46. He is 151 pounds overweight. HEENT: Denies any active troubles with vision or hearing. ENDOCRINE: Denies diabetes. Denies hypothyroidism. CARDIOVASCULAR: Denies past reports of palpitations or heart attacks or chest pain. Has hypertension. RESPIRATORY: Has asthma. Has chronic obstructive pulmonary lung disease. GASTROINTESTINAL: Denies any bright red blood per rectum. No diarrhea. No constipation. Has gastroesophageal reflux disease. GENITOURINARY: Denies bladder urgency. No recent blood in urine MUSCULOSKELETAL: Has lower back pain and joint pain. Has fibromyalgia. NEURO: Denies migraines. No seizure disorders. PSYCH: Has depression. No suicidal ideation. Has anxiety. RHEUMATOLOGIC: No lupus. No rheumatoid arthritis. HEMATOLOGIC: Denies any abnormal bleeding or bruising. Denies past history of DVTs. Has Chronic myelogenous leukemia SKIN: No rash. No skin cancer. PHYSICAL EXAM: VITAL SIGNS: Height 5 foot 11 inches, weight 299 pounds. BMI 41.8 GENERAL: Well-developed in no acute distress. HEENT: No scleral icterus. Extraocular movements grossly intact. Hears conversational speech. No nasal drainage. NECK: Supple without lymphadenopathy. CHEST: Nonlabored respirations with equal bilateral excursions. CARDIOVASCULAR: Regular rate and regular rhythm. Distal 2+ pulses. ABDOMEN: Obese, soft, nontender, nondistended. MUSCULOSKELETAL: No clubbing, cyanosis. NEURO: No focal or lateralizing signs. Cranial nerves 2 through 12 grossly within normal limits. PSYCH: Appropriate affect. Alert and oriented to person, place and time. SKIN: Good skin turgor. Well perfused. ASSESSMENT: 1. Morbid obesity due to excess calories 2. Body mass index 46.0 3. Fibromyalgia 4. Hypertensive heart disease 5. Chronic myelogenous leukemia 6. Depressive disorder 7. Osteoarthritis 8. Asthma 9. Chronic obstructive pulmonary disease 10. Generalized anxiety disorder 11. Motion sickness 12. Adverse event for medications with persistent hypotension during general induction PLAN: 1. Bariatric options between a sleeve, band and a Ab-en-Y gastric bypass were reviewed in detail. The patient elected for a sleeve gastrectomy. Robotic assisted approach described. 2. The [place] [facility] Data was also reviewed with benefits and risks as described. 3. An 8 page second-generation bariatric consent form was reviewed in detail including potential of bleeding, infection, leaks, adequate weight loss, nutritional deficiencies which the patient demonstrated understanding of the risks. 4. A 2 week high-protein low caloric 800 kcal diet described to address hepatomegaly. 5. Preoperative labs including complete metabolic panel and CBC with type and screen recommended. 6. DVT prophylaxis per [place] [facility]. 7. Antibiotic prophylaxis. 8. Inpatient hospitalization anticipated for more than 2 nights. 9. All questions and concerns were addressed with the patient. 10. The patient is at elevated risk for perioperative complications with sleep apnea and hypertensive heart disease. 11. Overall, patient has expressed understanding of bariatric care including postoperative diet and commitment of lifestyle. Patient should benefit from surgical intervention for correction of morbid obesity. 12. Patient has been cleared by cardiology for his procedure. All hypertensive medications were discontinued. Past Medical History Past Medical History: Asthma, Cancer, Fibromyalgia, Hyperlipidemia, Hypertension, Pneumonia, Sleep Apnea/CPAP/BIPAP Additional Past Medical History / Comment(s): CML, GOUT, HX MONO, COVID X2 (JAN & MAY 2021)., HX ULCERS., GASTRIC SLEEVE SURGERY 01/07/22 ABORTED DUE TO LOW BLOODPRESSURE. History of Any Multi-Drug Resistant Organisms: None Reported Past Surgical History: Heart Catheterization Additional Past Surgical History / Comment(s): Heart cath 2013. Dental work, EGD, COLONOSCOPY Past Anesthesia/Blood Transfusion Reactions: Previous Problems w/ Anesthesia, Motion Sickness Additional Past Anesthesia/Blood Transfusion Reaction / Comment(s): PT CAME FOR GASTRIC SLEEVE ON 01/07/22 AND STATES WHEN THEY GAVE HIM ANESTHESIA HIS BLOODPRESSURE DROPPED AND SURGERY WAS ABORTED-SINCE THEN HE HAS NOT TAKEN HIS VERAPAMIL, HCTZ-OLMESARTAN AND POTASSIUM. , WAS SEEN BY CARDIOLOGY IN HOSPITAL AND ECHOCARDIOGRAM DONE ([facility]) Past Psychological History: Anxiety, Depression Smoking Status: Never smoker Past Alcohol Use History: Rare Past Drug Use History: None Reported - Past Family History Father Family Medical History: Cancer Additional Family Medical History / Comment(s): prostate, colon cancers Medications and Allergies Home Medications Medication Instructions Recorded Confirmed Type allopurinoL [Zyloprim] 300 mg PO DAILY 06/05/18 01/10/22 History Bosutinib [Bosulif] 200 mg PO PC-SUPPER 02/21/21 01/10/22 History Albuterol Inhaler [Ventolin Hfa 1 puff INHALATION DIRECTED PRN 09/12/21 01/10/22 History Inhaler] Budesonide/Glycopyr/Formoterol 2 puff INHALATION BID 09/12/21 01/10/22 History [Breztri Aerosphere Inhaler] Acetaminophen [Tylenol] 325 mg PO DIRECTED PRN 01/10/22 01/10/22 History DULoxetine HCL [Cymbalta] 60 mg PO BID 01/10/22 01/10/22 History busPIRone HCL 10 mg PO BID 01/10/22 01/10/22 History Allergies Allergy/AdvReac Type Severity Reaction Status Date / Time Penicillins Allergy Rash/Hives Verified 01/10/22 08:24 lactose AdvReac Nausea & Verified 01/10/22 08:24 Vomiting & Diarrhea Sulfa (Sulfonamide AdvReac Rash/Hives Verified 01/10/22 08:24 Antibiotics)
[2022-01-11] MEDS ORDERED: ENOXAPARIN 40 MG/0.4 ML SYRINGE SQ PRN (07:00)
[2022-01-11] MEDS ORDERED: HYDROmorphone 0.5 MG/0.5 ML SYRINGE IVP PRN (07:00)
[2022-01-11] MEDS ORDERED: CHLORHEXIDINE GLUCONATE 15 ML CUP MUCOUS MEM PRN (07:00)
[2022-01-11] MEDS ORDERED: PANTOPRAZOLE 40 MG/10 ML VIAL IVP PRN (07:00)
[2022-01-11] MEDS ORDERED: LACTATED RINGERS 1,000 ML IV ONE ×3 (07:04→12:22)
[2022-01-11] MEDS ORDERED: ALBUTEROL NEBULIZED 2.5 MG/3 ML INHALATION STA (07:25)
[2022-01-11 07:27] LABS: Basophils # (A) 0.1 k/uL (0-0.2); Basophils % (A) 1 %; Eosinophils # (A) 0.2 k/uL (0-0.7); Eosinophils % (A) 2 %; HCT 40.3 % (39.0-53.0); HGB 12.9 gm/dL (13.0-17.5); Lymphocytes # (A) 2.6 k/uL (1.0-4.8); Lymphocytes % (A) 30 %; MCH 28.5 pg (25.0-35.0); MCHC 31.9 g/dL (31.0-37.0); MCV 89.1 fL (80.0-100.0); Mean Platelet Volume 12.4; Monocytes # (A) 0.8 k/uL (0-1.0); Monocytes % (A) 9 %; Neutrophils % (A) 57 %; Platelet Count 139 k/uL (150-450); RBC 4.53 m/uL (4.30-5.90); RDW 13.6 % (11.5-15.5); WBC 8.7 k/uL (3.8-10.6)
[2022-01-11 07:31] LABS: ALT 66 U/L (4-49); African American GFR (CKD) >90 (>60 ml/min/1.73 sqM); Albumin 4.3 g/dL (3.5-5.0); Anion Gap 10 mmol/L; Blood Urea Nitrogen 13 mg/dL (9-20); Calcium 8.8 mg/dL (8.4-10.2); Carbon Dioxide 26 mmol/L (22-30); Chloride 102 mmol/L (98-107); Glucose 86 mg/dL (74-99); Non-African American GFR(CKD) >90 (>60 ml/min/1.73 sqM); Sodium 138 mmol/L (137-145); Total Bilirubin 0.7 mg/dL (0.2-1.3); Total Protein 7.1 g/dL (6.3-8.2)
[2022-01-11 07:34] LABS: Potassium 3.9 mmol/L (3.5-5.1)
[2022-01-11 07:35] LABS: AST 63 U/L (17-59); Alkaline Phosphatase 35 U/L (38-126)
[2022-01-11] MEDS ORDERED: PROPOFOL 10 MG/ML 20 ML VIAL IV ONE (07:41)
[2022-01-11] MEDS ORDERED: fentaNYL (PF) 50 MCG/ML 2 ML AMP ONE (07:41)
[2022-01-11] MEDS ORDERED: ROCURONIUM 10 MG/ML (5 ML VIAL) IV ONE (07:41)
[2022-01-11] MEDS ORDERED: VASOPRESSIN 20 UNIT/ML 1 ML VIAL ONE (07:41)
[2022-01-11] MEDS ORDERED: LIDOCAINE 2% INJ 20 MG/ML (2 ML VIAL) ONE (07:41)
[2022-01-11] MEDS ORDERED: NEOSTIGMINE 1 MG/ML 10 ML VIAL ONE (07:41)
[2022-01-11] MEDS ORDERED: ALBUMIN HUMAN 5% (25gm) 500 ML VIAL IVPB ONE (07:41)
[2022-01-11] MEDS ORDERED: SUGAMMADEX SODIUM 200 MG/2 ML SDV IV ONE (07:41)
[2022-01-11] MEDS ORDERED: MIDAZOLAM 2 MG/2 ML VIAL ONE (07:41)
[2022-01-11] MEDS ORDERED: HYDROmorphone (PF) 1 MG/ML ONE (07:41)
[2022-01-11] MEDS ORDERED: SUCCINYLCHOLINE CHLORIDE 200 MG/10 ML VIAL IV ONE (07:41)
[2022-01-11] MEDS ORDERED: GLYCOPYRROLATE 0.2 MG/ML 2 ML VIAL ONE (07:41)
[2022-01-11] MEDS ORDERED: PHENYLEPHRINE-0.9% NACL SYG 1,000 MCG/10 ML SYRINGE ONE (07:41)
[2022-01-11] MEDS ORDERED: BUPIVACAIN-EPI 0.25%-1:200,000 30 ML VIAL SQ ONE (07:43)
[2022-01-11] MEDS ORDERED: NALOXONE 0.4 MG/ML 1 ML VIAL IV PRN (10:43)
[2022-01-11] MEDS ORDERED: ALBUTEROL NEBULIZED 2.5 MG/3 ML INHALATION ONE (10:52)
[2022-01-11] MEDS ORDERED: diphenhydrAMINE 50 MG/ML 1 ML VIAL IVP PRN (11:11)
[2022-01-11] MEDS ORDERED: hydrALAZINE HCL 20 MG/ML 1 ML VIAL IVP ONE (11:29)
[2022-01-11] MEDS ORDERED: METOPROLOL TARTRATE 5 MG/5 ML VIAL IVP ONE (11:29)
--- NOTE | 2022-01-11 11:30 | XR ---
EXAMINATION TYPE: XR chest 1V portable DATE OF EXAM: 01/11/2022 COMPARISON: 03/20/2021 HISTORY: Shortness of breath TECHNIQUE: Single frontal view of the chest is obtained. FINDINGS: There is no focal air space opacity, pleural effusion, or pneumothorax seen. The cardiac silhouette size is within normal limits. The osseous structures are intact. There is a diffuse inte rstitial pattern. Rotation limits assessment biapical pleural thickening. IMPRESSION: Coarsened interstitium correlate for interstitial pneumonitis or mild venous congestion
[2022-01-11] MEDS ORDERED: ONDANSETRON 4 MG/2 ML VIAL IVP SCH (12:00)
--- NOTE | 2022-01-11 12:02 | P.OP ---
Date of Procedure: 01/11/22 Description of Procedure: SURGEON: TEJAS ROJAS MD PREOPERATIVE DIAGNOSES: 1. Morbid obesity due to excess calories 2. Body mass index 46.0, initial 3. Fibromyalgia 4. Hypertensive heart disease 5. Chronic myelogenous leukemia 6. Depressive disorder 7. Osteoarthritis 8. Asthma 9. Chronic obstructive pulmonary disease 10. Generalized anxiety disorder 11. Motion sickness 12. Adverse event from medications with persistent hypotension during general induction 13. Obstructive sleep apnea POSTOPERATIVE DIAGNOSES: 1. Morbid obesity due to excess calories 2. Body mass index 46.0, initial 3. Fibromyalgia 4. Hypertensive heart disease 5. Chronic myelogenous leukemia 6. Depressive disorder 7. Osteoarthritis 8. Asthma 9. Chronic obstructive pulmonary disease 10. Generalized anxiety disorder 11. Motion sickness 12. Adverse event from medications with persistent hypotension during general induction 13. Epigastric, bilateral upper abdominal peritoneal adhesions 14. Severe obstructive sleep apnea OPERATION: 1. Robotic assisted daVinci Xi laparoscopic sleeve gastrectomy with 40-Kazakh bougie, multiport. 2. Robotic assisted daVinci Xi laparoscopic lysis of adhesions over 30 minutes 3. Intraoperative esophagogastroduodenoscopy. ANESTHESIA: Gen. local anesthetic ESTIMATED BLOOD LOSS: 10 mL SPECIMENS REMOVED: Sleeve gastrectomy COMPLICATIONS: None. FINDINGS: 1. Negative intraoperative esophagogastrojejunoscopy leak test. 2. No large hiatus hernia. 3. Total of 7 staplers used including 2 - 60 mm green and 4 - 60-mm blue robot juliet used to create the gastric sleeve. 4. Sleeve gastrectomy 30 x 4.5 cm 5. Severe epigastric including bilateral upper abdominal adhesions omentum to the abdominal wall requiring lysis adhesions over 30 minutes. 6. Arterial line placed per anesthesia during case due to the patient's pre- existing labile hypotension upon 7 7. Mildly thickened gallbladder wall. INDICATIONS: Jamal Ward is a 46-year-old male with morbid obesity completed cardiac risk assessment, bariatric versus assessment, psych assessment for the bariatric program. He elected for sleeve gastrectomy. At height of 5 feet 11 inches, ideal body weight is 178 pounds. His highest weight is 329 pounds, body mass index 46.0. He is 151 pounds overweight. Today he presents 299 pounds. All surgical options for morbid obesity had been described using the [place] [facility] collaborative comorbidity resolution including complication risk score. A second-generation bariatric consent form was described in detail including the possibility of protein malnutrition, leaks, gastric stricture, venous thrombosis, gastroesophageal reflux disease, need for further surgery for which he demonstrated understanding. Benefits and risks of the procedure were described at length. Informed consent was obtained. DESCRIPTION: The patient was brought into the operating room theater. Preoperatively he had received Lovenox subcutaneously for DVT prophylaxis. Additionally he had Peridex oral solution as an oral decontaminant. After general induction, the abdomen was prepped and draped in standard sterile fashion. An Ioban draping was placed along the abdomen. No oneal catheter was placed. A robotic da Tyler Xi system was prepped and primed. At 15 cm from the xiphoid, proposed port sites were marked with indelible marker along the anterior axillary line bilaterally, mid axillary line bilaterally with each ports were marked 10 to 15 cm from each other. The retail assistant store manager port was marked along the left lateral abdominal wall. The robotic stapler port was marked for the right midclavicular line. A 5 mm 0 degrees laparoscopic trocar entry was performed along the left upper quadrant. The abdomen was insufflated to 15 mmHg pressure he tolerated well. Diagnostic laparoscopy demonstrated no injury to bowel, viscera, or mesentery. The liver surface was then wished sharp edge consistent with this 2 week high- protein low-carb diet. No injury had occurred to the small bowel or viscera. Along the hiatus no hiatal hernia was found. A 8 mm port was placed along the right upper abdominal wall after exchanging the 5 mm port. A separate 8 mm port was placed along the left lateral abdominal wall. Please note that the ports were placed at least 20 cm away from the target anatomy. Care was taken to check each robotic arms were safely away from collision with the bed or the patient. At the epigastrium, a medium sized Heidy liver retractor was placed under direct visualization with the Iron Trenching Machine Operator placed under the right shoulder of the patient. Next, 12-mm robot stapler port was placed along the right upper quadrant. The camera 8-mm port was maintained along the epigastrium. The patient was repositioned in reverse Trendelenburg position at 21-degrees after lowering the bed. The robot was docked along the right side of the patient. Using a grasper for arm 4, a veseel sealer for arm 3, including grasper for arm 1, the robotic system was docked and primed as described. Instruments were interchanged by the retail assistant store manager for stapler loads. The camera was placed at 30-degrees down. I had sat at the console. Moderate adhesions works obscured full view of the stomach where lysis of adhesions was performed using vessel sealer. Peritoneal adhesions involving along omentum to the abdominal wall of the left upper quadrant, epigastrium and right upper quadrant were sharply chest using vessel sealer for over 30 minutes. The pylorus was identified and 6 cm proximally along the greater curvature of the stomach, the short gastrics were mobilized upwards to the angle of His using a vessel sealer. Hemostasis was excellent during this portion of the procedure. Next, the upper pole of the stomach was adherent to the left pasha, which was gently dissected free using atraumatic grasper. A 40-Kazakh blunted tip bougie was placed into the stomach. Robotic stapler green loads 60 mm x 2 and 60 mm x 5 mm blue loads were used to create the sleeve. Initial firing was across the antrum of the stomach towards the angle of His. The staple line was completely hemostatic and linear without corkscrewing. Hemostasis was excellent. The space from the angularis incisura of the sleeve was approximately 4 cm. I then went to the head of the bed to perform the intraoperative esophagogastroduodenoscopy leak test. The upper pole of the stomach was bathed using normal saline solution. The scope was withdrawn with careful inspection along the staple line for which no leaks were found along the entire length. Additionally, the sleeve was completely hemostatic without any encroachment along the angularis incisura. Its topology was a soft "J". No stricture was encountered upon placement of the scope. The GI tract was desufflated. The patient tolerated this portion of the procedure well. The scope was completely withdrawn. The robot was undocked. I then rescrubbed into case, whereby the irrigation fluid was aspirated from the abdominal cavity. Tisseel fibrin sealant was placed along the staple length. Once dried the Heidy liver retractor was removed. Attention was now brought to removal of the specimen. The distal end of the sleeve gastrectomy specimen was brought out through the 12 mm port at the left upper quadrant. The specimen was gently removed en total, corresponding to 30 cm x 4.5 cm sleeve gastrectomy specimen. No contamination had occurred during this process. All instruments and pneumoperitoneum including irrigation fluid was removed from the abdominal cavity. The 12 mm port site was irrigated with warm normal saline solution and diluted hydron peroxide. The 12-mm port site was reapproximated using 0 Vicryl and Venkat-Milo of the left upper quadrant. The final incisions were closed using subcuticular interrupted suture of 4-0 Monocryl. Dermabond was applied to the skin once the skin had been cleansed. OptiFoam dressing was placed along the stomach extraction site. At the end of the procedure, needle, sponge, and instrument count was verified correct by the surgical forceps fabricator. The patient was taken to the postanesthesia care unit in stable condition. He had tolerated the procedure well. Intraoperative films and findings were reviewed with the patient's family.
--- NOTE | 2022-01-11 12:04 | P.PN ---
Progress Note - Text Progress Note Date: 01/11/22 Per discussion with anesthesia, patient had acute oxygen desaturation. Shah catheter was placed with a chest x-ray obtained per anesthesia request. Naso- oral and oral airways were placed. Patient still sleepy from anesthesia. Recommendation for CPAP advised.
[2022-01-11] MEDS ORDERED: FUROSEMIDE 10 MG/ML 4 ML VIAL IV ONE (12:12)
[2022-01-11 13:04] LABS: Glucose,Whole Blood 125 mg/dL (70-110)
[2022-01-11 13:36] LABS: ABG Base Excess -2.7 mmol/L; ABG HCO3 25 mmol/L (21-25); ABG Oxygen Saturation 96.4 % (94-97); ABG PCO2 64 mmHg (35-45); ABG PH 7.21 (7.35-7.45); ABG PO2 99 mmHg (83-108); ABG TCO2 27 mmol/L (19-24); Allen Test Performed? Yes
[2022-01-11] MEDS: ALBUTEROL NEBULIZED 2.5 MG/3 ML INHALATION SCH ×3 (14:04→20:41)
[2022-01-11] MEDS: LACTATED RINGERS 1,000 ML IV SCH (14:27)
[2022-01-11] MEDS: ONDANSETRON 4 MG/2 ML VIAL IVP SCH ×2 (14:27→17:10)
[2022-01-11] MEDS ORDERED: DEXAMETHASONE SOD PHOSPHATE 10 MG/ML 1 ML VIAL IVP ONE (15:00)
[2022-01-11] MEDS: 0.9% NACL WITH KCL 20 MEQ/L 1,000 ML IV SCH ×2 (15:39→22:49)
[2022-01-11] MEDS: ceFAZolin 3 GM in SODIUM CHLORIDE 0.9% 100 ML IVPB SCH ×2 (15:46→22:49)
[2022-01-11] MEDS: HYDROmorphone 1 MG/ML 1 ML SYRINGE IVP PRN ×2 (15:46→20:10)
[2022-01-11] MEDS ORDERED: FUROSEMIDE 10 MG/ML 4 ML VIAL IV STA (16:09)
--- NOTE | 2022-01-11 16:23 | P.CNPUL ---
History of Present Illness Consult date: 01/11/22 Reason for consult: hypoxemia History of present illness: This is a morbidly obese male patient, 46-year-old, who underwent a robotic- assisted sleeve gastrectomy and the patient is currently postop day #0. Postop, the patient became hypoxic and the patient is currently on 8 L simple face mask to maintain a saturation above 90%. A pulmonary consultation was requested. The chest x-ray was also done that showed increased interstitial markings and interstitial edema. No issues with extubation and anesthesia records. The patient did not have any major respiratory difficulties. Currently is resting comfortably in bed. No cough. No sputum production. No aspiration. No fever or chills. No hemodynamic instability. Note that the patient is morbidly obese and he carries a body mass index of 46. His obstructive sleep apnea checked his CPAP unit and the patient has an APAP unit which is set at a minimum pressure of 12 and a maximum pressure of 19 and he has been extremely compliant to CPAP therapy over the years. He cannot fall asleep without his machine. He has COPD/asthma and other comorbidities including history of CML, depression, hypertension and fibromyalgia in addition to morbid obesity and depression. His history is also possible COVID infection in January 2021 and May 2021. Review of Systems Review of system is essentially negative. The patient is currently lethargic and sleepy. Arousable. No magistral distress for now. No cough or sputum production or chest tightness or wheezing. No nausea or emesis. He is resting comfortably in bed. No altered mentation. No signs of any CO2 narcosis. Past Medical History Past Medical History: Asthma, Cancer, Fibromyalgia, Hyperlipidemia, Hypertension, Pneumonia, Sleep Apnea/CPAP/BIPAP Additional Past Medical History / Comment(s): CML, GOUT, HX MONO, COVID X2 (JAN & MAY 2021)., HX ULCERS., GASTRIC SLEEVE SURGERY 01/07/22 ABORTED DUE TO LOW BLOODPRESSURE. History of Any Multi-Drug Resistant Organisms: None Reported Past Surgical History: Heart Catheterization Additional Past Surgical History / Comment(s): Heart cath 2013. Dental work, EGD, COLONOSCOPY Past Anesthesia/Blood Transfusion Reactions: Previous Problems w/ Anesthesia, Motion Sickness Additional Past Anesthesia/Blood Transfusion Reaction / Comment(s): PT CAME FOR GASTRIC SLEEVE ON 01/07/22 AND STATES WHEN THEY GAVE HIM ANESTHESIA HIS BLOODPRESSURE DROPPED AND SURGERY WAS ABORTED-SINCE THEN HE HAS NOT TAKEN HIS VERAPAMIL, HCTZ-OLMESARTAN AND POTASSIUM. , WAS SEEN BY CARDIOLOGY IN HOSPITAL AND ECHOCARDIOGRAM DONE ([facility]) Past Psychological History: Anxiety, Depression Smoking Status: Never smoker Past Alcohol Use History: Rare Past Drug Use History: None Reported - Past Family History Father Family Medical History: Cancer Additional Family Medical History / Comment(s): prostate, colon cancers Medications and Allergies Home Medications Medication Instructions Recorded Confirmed Type allopurinoL [Zyloprim] 300 mg PO DAILY 06/05/18 01/10/22 History Bosutinib [Bosulif] 200 mg PO PC-SUPPER 02/21/21 01/10/22 History Albuterol Inhaler [Ventolin Hfa 1 puff INHALATION DIRECTED PRN 09/12/21 01/10/22 History Inhaler] Budesonide/Glycopyr/Formoterol 2 puff INHALATION BID 09/12/21 01/10/22 History [Breztri Aerosphere Inhaler] Acetaminophen [Tylenol] 325 mg PO DIRECTED PRN 01/10/22 01/10/22 History DULoxetine HCL [Cymbalta] 60 mg PO BID 01/10/22 01/10/22 History busPIRone HCL 10 mg PO BID 01/10/22 01/10/22 History Allergies Allergy/AdvReac Type Severity Reaction Status Date / Time Penicillins Allergy Rash/Hives Verified 01/10/22 08:24 lactose AdvReac Nausea & Verified 01/10/22 08:24 Vomiting & Diarrhea Sulfa (Sulfonamide AdvReac Rash/Hives Verified 01/10/22 08:24 Antibiotics) Physical Exam Vitals: Vital Signs Temp Pulse Pulse Resp BP BP BP 01/11/22 16:09 01/11/22 13:20 108 H 16 126/59 01/11/22 13:05 104 H 16 143/64 01/11/22 12:50 97.2 F L 103 H 15 143/64 148/68 01/11/22 12:35 106 H 18 138/79 162/78 129/77 01/11/22 12:20 101 H 18 166/77 115/55 01/11/22 12:05 100 14 158/64 131/75 01/11/22 11:50 101 H 18 158/69 01/11/22 11:35 98 18 179/76 01/11/22 11:20 108 H 20 210/82 01/11/22 11:05 101 H 20 200/80 01/11/22 10:50 97.8 F 101 H 28 H 176/70 01/11/22 07:44 78 01/11/22 07:36 78 01/11/22 07:06 97.7 F 96 18 124/70 Pulse Ox FiO2 01/11/22 16:09 50 01/11/22 13:20 95 01/11/22 13:05 94 L 01/11/22 12:50 95 01/11/22 12:35 95 01/11/22 12:20 93 L 01/11/22 12:05 95 01/11/22 11:50 92 L 01/11/22 11:35 96 01/11/22 11:20 95 01/11/22 11:05 90 L 01/11/22 10:50 95 01/11/22 07:44 01/11/22 07:36 01/11/22 07:06 100 Intake and Output 01/11/22 01/11/22 01/11/22 06:59 14:59 22:59 Intake Total 2100 Output Total 1130 Balance 970 Intake: IV 2100 Output: Urine 1120 Estimated Blood Loss 10 Morbidly obese, calm and comfortable, body mass index of 42 Head exam was generally normal. There was no scleral icterus or corneal arcus. Mucous membranes were moist. Neck was supple and without jugular venous distension, thyromegaly, or carotid bruits. Carotids were easily palpable bilaterally. There was no adenopathy. Mallampati class IV Lungs sounds are diminished bilaterally otherwise they're clear. No wheezes or rhonchi. Cardiac exam revealed the PMI to be normally situated and sized. The rhythm was regular and no extrasystoles were noted during several minutes of auscultation. The first and second heart sounds were normal and physiologic splitting of the second heart sound was noted. There were no murmurs, rubs, clicks, or gallops. Abdominal exam revealed normal bowel sounds. The abdomen was soft, non-tender, and without masses, organomegaly, or appreciable enlargement of the abdominal a hao. And the patient has clear surgical wound has over the anterior abdominal wall. No direct tenderness rebound tensile guarding. Examination of the extremities revealed easily palpable radial, femoral and pedal pulses. There was no cyanosis, clubbing or edema. Examination of the skin revealed no evidence of significant rashes, suspicious appearing nevi or other concerning lesions. Neurologically, the patient is awake and alert and the patient does not have any focal neurological deficit. Cranial nerves are essentially intact. Results - Laboratory Findings CBC and BMP: 01/11/22 06:54 01/11/22 06:54 ABG ABG pH 7.21 (7.35-7.45) L 01/11/22 10:58 ABG pCO2 64 mmHg (35-45) H 01/11/22 10:58 ABG pO2 99 mmHg (83-108) 01/11/22 10:58 ABG O2 Saturation 96.4 % (94-97) 01/11/22 10:58 Abnormal lab findings: Abnormal Labs 01/11/22 01/11/22 01/11/22 06:54 06:54 10:58 Hgb 12.9 L Plt Count 139 L ABG pH 7.21 L ABG pCO2 64 H ABG Total CO2 27 H POC Glucose (mg/dL) AST 63 H ALT 66 H Alkaline Phosphatase 35 L 01/11/22 13:01 Hgb Plt Count ABG pH ABG pCO2 ABG Total CO2 POC Glucose (mg/dL) 125 H AST ALT Alkaline Phosphatase - Diagnostic Findings Chest x-ray: image reviewed Assessment and Plan Plan: Acute hypoxemic respiratory failure currently on 8 L oxygen through a simple mask. Chest x-ray revealing interstitial markings/edema. Consider negative pressure pulmonary edema post extubation in a morbidly obese male patient with history of severe obstructive sleep apnea. No clear indication for aspiration at this point in time. No history of any cardiomyopathy. Patient is resting comfortably in bed. No signs of any bronchospasm or wheezing. There could be also some postoperative atelectatic changes in lung bases. Gastric sleeve, robotic-assisted, postop day #0 Severe obstructive sleep apnea, maintained on APAP machine Morbid obesity with a BMI of 42 Hypertension Fibromyalgia History of CML Hyperlipidemia COPD/asthma Previous history of COVID 19 infection, recovered nicely without any major issues Chronic anxiety Plan Keep the Simplus fullface mask right now at 8 L and titrate slowly to maintain a saturation above 90%. Give the patient dose of Lasix 40 mg IV push The patient is currently awake and alert and comfortable. However, overnight, I'm recommending putting this patient on our CPAP unit and will selective pressure of 15 cm of water and FiO2 of 50% and this will be titrated to maintain a saturation above 90%. Repeat a chest x-ray in the morning. Lovenox for DVT prophylaxis. Outpatient medication to be resumed. Routine care post gastric sleeve procedure. We'll continue to follow.
[2022-01-11] MEDS: DEXAMETHASONE SOD PHOSPHATE 4 MG/ML 1 ML VIAL IVP SCH (17:11)
[2022-01-11] MEDS: SIMETHICONE 40 MG/0.6 ML DROPS 2,000 MG/30 ML BOTTLE PO SCH (17:11)
[2022-01-11] MEDS: BOSUTINIB 100 MG PO SCH (17:43)
[2022-01-11] MEDS: ACETAMINOPHEN IV (For NPO) 1,000 MG in EMPTY BAG 1 BAG IVPB SCH (18:26)
[2022-01-11] MEDS ORDERED: IPRATROPIUM 0.5 MG/2.5 ML NEBU INHALATION SCH (20:00)
[2022-01-11] MEDS: PANTOPRAZOLE 40 MG/10 ML VIAL IV SCH (20:10)
[2022-01-11] MEDS: SYMBICORT 160-4.5 MCG INHALER INHALATION SCH (20:41)
[2022-01-12] MEDS: ACETAMINOPHEN IV (For NPO) 1,000 MG in EMPTY BAG 1 BAG IVPB SCH ×3 (00:27→11:38)
[2022-01-12] MEDS: DEXAMETHASONE SOD PHOSPHATE 4 MG/ML 1 ML VIAL IVP SCH ×4 (00:28→17:23)
[2022-01-12] MEDS: ONDANSETRON 4 MG/2 ML VIAL IVP SCH ×4 (00:28→17:23)
[2022-01-12] MEDS: SIMETHICONE 40 MG/0.6 ML DROPS 2,000 MG/30 ML BOTTLE PO SCH ×4 (00:29→17:23)
[2022-01-12] MEDS: HYDROmorphone 1 MG/ML 1 ML SYRINGE IVP PRN ×4 (04:21→20:25)
[2022-01-12] MEDS: 0.9% NACL WITH KCL 20 MEQ/L 1,000 ML IV SCH ×3 (04:25→17:13)
[2022-01-12] MEDS: LACTATED RINGERS 1,000 ML IV SCH (06:10)
[2022-01-12] MEDS: PANTOPRAZOLE 40 MG/10 ML VIAL IV SCH ×2 (07:24→20:14)
[2022-01-12] MEDS: ENOXAPARIN 40 MG/0.4 ML SYRINGE SQ SCH (07:24)
[2022-01-12] MEDS: SYMBICORT 160-4.5 MCG INHALER INHALATION SCH ×2 (07:28→20:36)
[2022-01-12] MEDS: IPRATROPIUM-ALBUTEROL 3 ML NEB INHALATION SCH ×4 (07:28→20:36)
--- NOTE | 2022-01-12 08:22 | FL ---
SINGLE CONTRAST UPPER GI EXAMINATION: CLINICAL HISTORY: 46-year-old male postop bariatric surgery, gastric sleeve. TECHNIQUE: Single contrast exam performed with 50 ml Isovue-370 contrast. Total fluoroscopy time: 1 minute 7 seconds. Total images: 33. FINDINGS: The patient swallowed oral contrast in small sips but without difficulty. Esophageal peristalsis and motility show [id number] tertiary peristaltic waves with mild intraesophageal reflux intermitt ently noted. There is prompt passage of contrast from the esophagus into the stomach and prompt passa ge across the gastric sleeve. There is no evidence of contrast extravasation to suggest leak. No post surgical free air. IMPRESSION: Mild esophageal dysmotility. No evidence of leak or significant obstruction status post sleeve gastre ctomy..
--- NOTE | 2022-01-12 08:32 | XR ---
EXAMINATION TYPE: XR chest 1V portable DATE OF EXAM: 01/12/2022 Comparison: 01/11/2022 Clinical History: 46-year-old male Mild interstitial edema Findings: Heart normal size. Aorta within normal limits. Interstitial groundglass changes, right greater than l eft are present. Densities are improving on the left side. Impression: Mild interstitial groundglass changes redemonstrated though improving now on the left side.
[2022-01-12] MEDS ORDERED: FUROSEMIDE 10 MG/ML 4 ML VIAL IV STA (10:19)
--- NOTE | 2022-01-12 11:22 | P.CONS ---
History of Present Illness - Reason for Consult Consult date: 01/12/22 Requesting physician: Teresa Quinones - Chief Complaint Shortness of breath - History of Present Illness Patient is a 46-year-old male with a past medical history of morbid obesity, asthma, Gout, depression and anxiety, FARA on CPAP who was admitted for elective gastric sleeve surgery. After his surgery patient was hypoxic. Medicine and pulmonology have been consulted. Patient was seen this morning and he is only complaining of some soreness in his chest. He denied any shortness of breath. Patient was awake and alert. He was satting well on 6 L nasal cannula. I encouraged the patient to ambulate and use his incentive spirometer. Patient denies wearing oxygen at home. Review of Systems 10 ROS reviewed and are negative except as noted in HPI Past Medical History Past Medical History: Asthma, Cancer, Fibromyalgia, Hyperlipidemia, Hype rtension, Pneumonia, Sleep Apnea/CPAP/BIPAP Additional Past Medical History / Comment(s): CML, GOUT, HX MONO, COVID X2 (JAN & MAY 2021)., HX ULCERS., GASTRIC SLEEVE SURGERY 01/07/22 ABORTED DUE TO LOW BLOODPRESSURE. History of Any Multi-Drug Resistant Organisms: None Reported Past Surgical History: Heart Catheterization Additional Past Surgical History / Comment(s): Heart cath 2013. Dental work, EGD, COLONOSCOPY Past Anesthesia/Blood Transfusion Reactions: Previous Problems w/ Anesthesia, Motion Sickness Additional Past Anesthesia/Blood Transfusion Reaction / Comm: PT CAME FOR GASTRIC SLEEVE ON 01/07/22 AND STATES WHEN THEY GAVE HIM ANESTHESIA HIS BLOODPRESSURE DROPPED AND SURGERY WAS ABORTED-SINCE THEN HE HAS NOT TAKEN HIS VERAPAMIL, HCTZ-OLMESARTAN AND POTASSIUM. , WAS SEEN BY CARDIOLOGY IN HOSPITAL AND ECHOCARDIOGRAM DONE ([facility]) Past Psychological History: Anxiety, Depression Smoking Status: Never smoker Past Alcohol Use History: Rare Past Drug Use History: None Reported - Past Family History Father Family Medical History: Cancer Additional Family Medical History / Comment(s): prostate, colon cancers Medications and Allergies Home Medications Medication Instructions Recorded Confirmed Type allopurinoL [Zyloprim] 300 mg PO DAILY 06/05/18 01/10/22 History Bosutinib [Bosulif] 200 mg PO PC-SUPPER 02/21/21 01/10/22 History Albuterol Inhaler [Ventolin Hfa 1 puff INHALATION DIRECTED PRN 09/12/21 01/10/22 History Inhaler] Budesonide/Glycopyr/Formoterol 2 puff INHALATION BID 09/12/21 01/10/22 History [Breztri Aerosphere Inhaler] Acetaminophen [Tylenol] 325 mg PO DIRECTED PRN 01/10/22 01/10/22 History DULoxetine HCL [Cymbalta] 60 mg PO BID 01/10/22 01/10/22 History busPIRone HCL 10 mg PO BID 01/10/22 01/10/22 History Allergies Allergy/AdvReac Type Severity Reaction Status Date / Time Penicillins Allergy Rash/Hives Verified 01/10/22 08:24 lactose AdvReac Nausea & Verified 01/10/22 08:24 Vomiting & Diarrhea Sulfa (Sulfonamide AdvReac Rash/Hives Verified 01/10/22 08:24 Antibiotics) Physical Exam Osteopathic Statement: *. No significant issues noted on an osteopathic structural exam other than those noted in the History and Physical/Consult. Vitals: Vital Signs Temp Pulse Pulse Resp BP BP BP 01/12/22 11:09 01/12/22 11:04 95 01/12/22 08:05 98.7 F 61 16 148/79 01/12/22 07:28 01/12/22 03:36 01/12/22 02:00 98.3 F 99 25 H 152/88 01/11/22 23:23 01/11/22 20:52 100 01/11/22 20:43 100 01/11/22 20:00 97.6 F 102 H 157/80 01/11/22 17:20 102 H 01/11/22 16:09 01/11/22 16:07 103 H 149/76 01/11/22 15:37 107 H 142/78 01/11/22 15:22 111 H 145/66 01/11/22 15:07 107 H 158/84 01/11/22 14:52 104 H 144/75 01/11/22 14:37 107 H 138/79 01/11/22 14:21 98 F 96 18 159/80 01/11/22 13:20 108 H 16 126/59 01/11/22 13:05 104 H 16 143/64 01/11/22 12:50 97.2 F L 103 H 15 143/64 148/68 01/11/22 12:35 106 H 18 138/79 162/78 129/77 01/11/22 12:20 101 H 18 166/77 115/55 01/11/22 12:05 100 14 158/64 131/75 01/11/22 11:50 101 H 18 158/69 01/11/22 11:35 98 18 179/76 01/11/22 11:20 108 H 20 210/82 Pulse Ox FiO2 01/12/22 11:09 98 01/12/22 11:04 01/12/22 08:05 97 01/12/22 07:28 96 01/12/22 03:36 50 01/12/22 02:00 98 01/11/22 23:23 50 01/11/22 20:52 01/11/22 20:43 50 01/11/22 20:00 99 01/11/22 17:20 99 50 01/11/22 16:09 50 01/11/22 16:07 97 01/11/22 15:37 94 L 01/11/22 15:22 94 L 01/11/22 15:07 94 L 01/11/22 14:52 94 L 01/11/22 14:37 95 01/11/22 14:21 96 01/11/22 13:20 95 01/11/22 13:05 94 L 01/11/22 12:50 95 01/11/22 12:35 95 01/11/22 12:20 93 L 01/11/22 12:05 95 01/11/22 11:50 92 L 01/11/22 11:35 96 01/11/22 11:20 95 Intake and Output 01/11/22 01/12/22 01/12/22 22:59 06:59 14:59 Intake Total 100 1800 Output Total 1999 650 Balance -1900 1150 Intake: Intake, IV Titration 100 1800 Amount 0.9% NaCl with KCl 20 Meq 1800 /l 1,000 ml @ 150 mls/hr IV .[facility]6H40M [facility] Rx#: [id number] ceFAZolin 3 gm In Sodium 100 Chloride 0.9% 100 ml @ 200 mls/hr IVPB Q8H [facility] Rx#:[id number] Output: Urine 1999 650 Other: Voiding Method Indwelling Catheter Weight 136.078 kg General: [Alert and oriented, well nourished, no acute distress]. Eye: [PERRL, EOMI, normal conjunctiva]. HENT: [Normocephalic, clear tympanic membranes, normal hearing, moist oral mucosa, no scleral icterus, no sinus tenderness]. Neck: [Supple, non-tender, no carotid bruits, no JVD, no lymphadenopathy]. Lungs: [Clear to auscultation and percussion, non-labored respiration]. Heart: [Normal rate, regular rhythm, no murmur, gallop or edema]. Abdomen: [Soft, non-tender, non-distended, normal bowel sounds, no masses, morbidly obese]. Musculoskeletal: [Normal range of motion and strength, no tenderness or swelling]. Skin: [Skin is warm, dry and pink, no rashes or lesions]. Neurologic: [Awake, alert, and oriented X3, CN II-XII intact]. Psychiatric: [Cooperative, appropriate mood and affect]. Results CBC & Chem 7: 01/11/22 06:54 01/11/22 06:54 Labs: Abnormal Lab Results - Last 24 Hours (Table) 01/11/22 01/11/22 Range/Units 10:58 13:01 ABG pH 7.21 L (7.35-7.45) ABG pCO2 64 H (35-45) mmHg ABG Total CO2 27 H (19-24) mmol/L POC Glucose (mg/dL) 125 H (70-110) mg/dL Assessment and Plan Assessment: Acute hypoxic and hypercapnic respiratory failure Patient likely has underlying obesity hypoventilation syndrome Obstructive sleep apnea COPD and asthma not in exacerbation -Resume CPAP at night -Titrated O2 as tolerated -Encourage ambulation and incentive spirometer use -When patient is cleared for discharge he will need home O2 eval. -Resume Symbicort and DuoNeb as needed -Defer steroids to pulmonology -Chest x-ray this morning showing improvement groundglass opacity on the left side Gastric sleeve surgery Morbid obesity with BMI of 42 -As per your primary team Anxiety and depression -Resume home psych meds as patient is now more awake and alert Gout -Resume allopurinol Thank you for the consult and we'll continue to follow along with you
[2022-01-12 11:40] LABS: Magnesium 1.9 mg/dL (1.5-2.4)
[2022-01-12 11:52] LABS: Basophils # (A) 0.01 X 10*3/uL (0.00-0.10); Basophils % (A) 0.1 %; Eosinophils # (A) 0 X 10*3/uL (0.04-0.35); Eosinophils % (A) 0 %; HCT 37.1 % (39.6-50.0); HGB 11.7 g/dL (13.0-17.0); Immature Grans, Automated 0.6 %; Lymphocytes % (A) 6.7 %; MCH 27.9 pg (27.0-32.0); MCHC 31.5 g/dL (32.0-37.0); MCV 88.5 fL (80.0-97.0); Monocytes # (A) 1.07 X 10*3/uL (0.20-1.00); Monocytes % (A) 5.9 %; NRBC Per 100 WBC 0 /100 WBCS (0.0-0.0); Neutrophils # (A) 15.63 X 10*3/uL (1.80-7.70); Neutrophils % (A) 86.7 %; Platelet Count 141 X 10*3/uL (140-440); RBC 4.19 X 10*6/uL (4.40-5.60); RDW 13.3 % (11.5-14.5); WBC 18.02 X 10*3/uL (4.50-10.00)
[2022-01-12 11:54] LABS: Phosphorus 3.6 mg/dL (2.4-5.1)
--- NOTE | 2022-01-12 11:58 | P.PN ---
Subjective Progress Note Date: 01/12/22 01/12/2022, the patient is on 6 L of oxygen by nasal cannula. Overnight he was CPAP therapy at a pressure 15 cm of water. No shortness of breath. Upper GI series was done and the patient passed the patient is currently taking clear liquid diet. No nausea. No vomiting. No chest pain. No abdominal pain. Follow-up chest x-ray shows improvement in interstitial infiltrates. There is some residual infiltration of the right. No fever. No chills. The white cell count is at 18 with a hemoglobin of 11.7 Objective - Vital Signs Vital signs: Vital Signs Temp 98.7 F 01/12/22 08:05 Pulse 97 01/12/22 11:17 Resp 16 01/12/22 08:05 BP 148/79 01/12/22 08:05 Pulse Ox 98 01/12/22 11:09 FiO2 50 01/12/22 03:36 Intake & Output 01/11/22 01/12/22 01/12/22 18:59 06:59 18:59 Intake Total 2200 1800 Output Total 1130 2650 Balance 1070 -850 Weight 136.078 kg Intake: IV 2100 Intake, IV Titration 100 1800 Amount 0.9% NaCl with KCl 20 Meq 1800 /l 1,000 ml @ 150 mls/hr IV .Q6H40M [facility] Rx#: [id number] ceFAZolin 3 gm In Sodium 100 Chloride 0.9% 100 ml @ 200 mls/hr IVPB Q8H [facility] Rx#:[id number] Output: Urine 1120 2650 Estimated Blood Loss 10 Other: Voiding Method Indwelling Catheter Indwelling Catheter - Exam Morbidly obese, calm and comfortable, body mass index of 42, currently on 6 L O2 nasal cannula Head exam was generally normal. There was no scleral icterus or corneal arcus. Mucous membranes were moist. Neck was supple and without jugular venous distension, thyromegaly, or carotid bruits. Carotids were easily palpable bilaterally. There was no adenopathy. Mallampati class IV Lungs sounds are diminished bilaterally otherwise they're clear. No wheezes or rhonchi. Cardiac exam revealed the PMI to be normally situated and sized. The rhythm was regular and no extrasystoles were noted during several minutes of auscultation. The first and second heart sounds were normal and physiologic splitting of the second heart sound was noted. There were no murmurs, rubs, clicks, or gallops. Abdominal exam revealed normal bowel sounds. The abdomen was soft, non-tender, and without masses, organomegaly, or appreciable enlargement of the abdominal aorta. And the patient has clear surgical wound has over the anterior abdominal wall. No direct tenderness rebound tensile guarding. Examination of the extremities revealed easily palpable radial, femoral and pedal pulses. There was no cyanosis, clubbing or edema. Examination of the skin revealed no evidence of significant rashes, suspicious appearing nevi or other concerning lesions. Neurologically, the patient is awake and alert and the patient does not have any focal neurological deficit. Cranial nerves are essentially intact. - Labs CBC & Chem 7: 01/12/22 07:04 01/11/22 06:54 Labs: Abnormal Lab Results - Last 24 Hours (Table) 01/11/22 01/11/22 01/12/22 Range/Units 10:58 13:01 07:04 WBC 18.02 H (4.50-10.00) X 10*3/uL RBC 4.19 L (4.40-5.60) X 10*6/uL Hgb 11.7 L (13.0-17.0) g/dL Hct 37.1 L (39.6-50.0) % MCHC 31.5 L (32.0-37.0) g/dL Immature Gran # 0.11 H (0.00-0.04) X 10*3/uL Neutrophils # 15.63 H (1.80-7.70) X 10*3/uL Monocytes # 1.07 H (0.20-1.00) X 10*3/uL Eosinophils # 0 L (0.04-0.35) X 10*3/uL ABG pH 7.21 L (7.35-7.45) ABG pCO2 64 H (35-45) mmHg ABG Total CO2 27 H (19-24) mmol/L POC Glucose (mg/dL) 125 H (70-110) mg/dL Assessment and Plan Plan: Acute hypoxemic respiratory failure currently 6 L O2 nasal cannula, clinically improving and the chest x-ray showing interstitial infiltrates that are also improving. Rule out negative pressure pulmonary edema as the patient has significant degree of obstructive sleep apnea and this could've occurred post e xtubation. Gastric sleeve, robotic-assisted, postop day #1, passed swallow evaluation currently on diet Severe obstructive sleep apnea, maintained on APAP machine Morbid obesity with a BMI of 42 Hypertension Fibromyalgia History of CML Hyperlipidemia COPD/asthma Previous history of COVID 19 infection, recovered nicely without any major issues Chronic anxiety Plan Chest x-ray is improving Given another dose of Lasix 40 mg IV push Wean the FiO2 down to 5 L Gradually wean it down to maintain saturation above 90% Continue CPAP pressure 15 cm of water Advance diet as tolerated We'll continue to follow
[2022-01-12 12:02] LABS: African American GFR (CKD) 111.8 (60.0-200.0); Anion Gap 12.2 mmol/L (10.00-18.00); Blood Urea Nitrogen 12.5 mg/dL (9.0-27.0); Calcium 8.4 mg/dL (8.7-10.3); Carbon Dioxide 25.6 mmol/L (20.0-27.5); Non-African American GFR(CKD) 96.5 (60.0-200.0); Potassium 4.9 mmol/L (3.5-5.5)
--- NOTE | 2022-01-12 15:49 | P.PN ---
Subjective Progress Note Date: 01/12/22 CHIEF COMPLAINT: Morbid obesity HISTORY OF PRESENT ILLNESS: The patient is a 46-year-old male status post sleeve gastrectomy. He has pre-existing persistent hypotension. Patient has severe obstructive sleep apnea. Postoperatively, patient had acute desaturation. Anesthesia placed a Shah catheter and recommended CPAP machine. Pulmonary following. at bedside. He has clinically improved without shortness of breath. He tolerated liquid diet. He has appropriate epigastric discomfort from recent sleeve ROS: No reports of nausea and vomiting. No bowel movements. No fevers or chills. No new chest pain. No productive sputum PHYSICAL EXAM: VITAL SIGNS: Reviewed CONSTITUTIONAL: Well developed and in no acute distress. EYES: Conjuctivae without sclera icterus. Extraocular movements grossly intact. HEAD, EARS, NOSE, THROAT: Moist buccal mucosa. Head is atraumatic, normocephali c. Hears conversational speech. No nasal drainage. RESPIRATORY: Non-labored respirations and equal bilateral excursions. CARDIOVASCULAR: Palpable 2+ radial pulses. ABDOMEN: Incisions clean dry and intact. Abdominal binder present. MUSCULOSKELETAL: No gross deformity of the lower extremities noted. No clubbing. No cyanosis. SKIN: Good skin turgor. Well perfused. NEUROLOGIC: Cranial nerves II through XII grossly intact. No focal or lateralizing signs. PSYCH: Appropriate affect. Alert and oriented to person, place and time. CLINICAL LABS: Reviewed. Reactive leukocytosis WBC elevated at over 18,000. IMAGING: Chest x-ray reviewed without infiltrate. This is my independent inte rpretation. Esophagram negative for leaks or obstruction. This is my independent interpretation. ASSESSMENT: 1. Morbid obesity and excess calories, BMI 41.8 2. Status post sleeve gastrectomy PLAN: 1. Discontinue Shah catheter. 2. Repeat chest x-ray. 3. Pulmonary following. 4. Anticipated disposition tomorrow pending clinical course. 5. Overall, doing well. Objective - Vital Signs Vital signs: Vital Signs Temp 98.8 F 01/12/22 14:46 Pulse 88 01/12/22 15:45 Resp 17 01/12/22 14:46 BP 169/74 01/12/22 14:46 Pulse Ox 97 01/12/22 14:46 FiO2 50 01/12/22 03:36 Intake & Output 01/11/22 01/12/22 01/12/22 18:59 06:59 18:59 Intake Total 2200 1800 Output Total 1130 2650 Balance 1070 -850 Weight 136.078 kg Intake: IV 2100 Intake, IV Titration 100 1800 Amount 0.9% NaCl with KCl 20 Meq 1800 /l 1,000 ml @ 150 mls/hr IV .Q6H40M [facility] Rx#: [id number] ceFAZolin 3 gm In Sodium 100 Chloride 0.9% 100 ml @ 200 mls/hr IVPB Q8H [facility] Rx#:[id number] Output: Urine 1120 2650 Estimated Blood Loss 10 Other: Voiding Method Indwelling Catheter Indwelling Catheter - Labs CBC & Chem 7: 01/12/22 07:04 01/12/22 07:04 Labs: Abnormal Lab Results - Last 24 Hours (Table) 01/12/22 01/12/22 Range/Units 07:04 07:04 WBC 18.02 H (4.50-10.00) X 10*3/uL RBC 4.19 L (4.40-5.60) X 10*6/uL Hgb 11.7 L (13.0-17.0) g/dL Hct 37.1 L (39.6-50.0) % MCHC 31.5 L (32.0-37.0) g/dL Immature Gran # 0.11 H (0.00-0.04) X 10*3/uL Neutrophils # 15.63 H (1.80-7.70) X 10*3/uL Monocytes # 1.07 H (0.20-1.00) X 10*3/uL Eosinophils # 0 L (0.04-0.35) X 10*3/uL Calcium 8.4 L (8.7-10.3) mg/dL
[2022-01-12] MEDS: PIPERACILLIN-TAZOBACTAM 3.375 GM in SODIUM CHLORIDE 0.9% 100 ML IVPB SCH (16:11)
[2022-01-12] MEDS: BOSUTINIB 100 MG PO SCH (17:23)
[2022-01-12] MEDS: DULoxetine HCL 60 MG CAPSULE.DR PO SCH (20:14)
[2022-01-12] MEDS: busPIRone HCl 10 MG TAB PO SCH (20:14)
[2022-01-13] MEDS: PIPERACILLIN-TAZOBACTAM 3.375 GM in SODIUM CHLORIDE 0.9% 100 ML IVPB SCH ×3 (00:01→15:19)
[2022-01-13] MEDS: DEXAMETHASONE SOD PHOSPHATE 4 MG/ML 1 ML VIAL IVP SCH ×4 (00:01→16:48)
[2022-01-13] MEDS: SIMETHICONE 40 MG/0.6 ML DROPS 2,000 MG/30 ML BOTTLE PO SCH ×4 (00:01→17:21)
[2022-01-13] MEDS: HYDROmorphone 1 MG/ML 1 ML SYRINGE IVP PRN ×3 (05:46→17:19)
[2022-01-13] MEDS: ONDANSETRON 4 MG/2 ML VIAL IVP SCH ×4 (05:46→16:48)
[2022-01-13] MEDS: 0.9% NACL WITH KCL 20 MEQ/L 1,000 ML IV SCH (05:47)
[2022-01-13] MEDS: LACTATED RINGERS 1,000 ML IV SCH (06:54)
[2022-01-13] MEDS: PANTOPRAZOLE 40 MG/10 ML VIAL IV SCH ×2 (07:15→20:34)
[2022-01-13] MEDS: DULoxetine HCL 60 MG CAPSULE.DR PO SCH ×2 (07:31→20:33)
[2022-01-13] MEDS: allopurinoL 300 MG TAB PO SCH (07:31)
[2022-01-13] MEDS: busPIRone HCl 10 MG TAB PO SCH ×2 (07:31→20:33)
[2022-01-13] MEDS: ENOXAPARIN 40 MG/0.4 ML SYRINGE SQ SCH (07:32)
[2022-01-13] MEDS: SYMBICORT 160-4.5 MCG INHALER INHALATION SCH ×2 (07:46→19:38)
[2022-01-13] MEDS: IPRATROPIUM-ALBUTEROL 3 ML NEB INHALATION SCH ×4 (07:46→19:37)
--- NOTE | 2022-01-13 07:55 | XR ---
EXAMINATION TYPE: XR chest 1V portable DATE OF EXAM: 01/13/2022 Comparison: 01/12/2022 Clinical History: 46-year-old male Pulmonary edema Findings: Heart normal size. Aorta and pulmonary vasculature within normal limits. The interstitial changes hav e improved. Mild residual interstitial density at the right midlung. Impression: Most of the interstitial changes have resolved. There is mild residual interstitial density at the ri ght midlung.
[2022-01-13] MEDS ORDERED: bisacodyL 5 MG TABLET.DR PO PRN (08:00)
--- NOTE | 2022-01-13 11:29 | P.PN ---
Subjective Progress Note Date: 01/13/22 Patient this morning states that he feels well. He is denying any shortness of breath. He is down to 2 L nasal cannula. He states that he is able to tolerate his liquid diet. 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 Psych - Calm and cooperative - Labs CBC & Chem 7: 01/12/22 07:04 01/12/22 07:04 Labs: Abnormal Lab Results - Last 24 Hours (Table) 01/12/22 01/12/22 Range/Units 07:04 07:04 WBC 18.02 H (4.50-10.00) X 10*3/uL RBC 4.19 L (4.40-5.60) X 10*6/uL Hgb 11.7 L (13.0-17.0) g/dL Hct 37.1 L (39.6-50.0) % MCHC 31.5 L (32.0-37.0) g/dL Immature Gran # 0.11 H (0.00-0.04) X 10*3/uL Neutrophils # 15.63 H (1.80-7.70) X 10*3/uL Monocytes # 1.07 H (0.20-1.00) X 10*3/uL Eosinophils # 0 L (0.04-0.35) X 10*3/uL Calcium 8.4 L (8.7-10.3) mg/dL Assessment and Plan Assessment: Acute hypoxic and hypercapnic respiratory failure Patient likely has underlying obesity hypoventilation syndrome Obstructive sleep apnea COPD and asthma not in exacerbation -Resume CPAP at night -Titrated O2 as tolerated -Encourage ambulation and incentive spirometer use -When patient is cleared for discharge he will need home O2 eval. -Resume Symbicort and DuoNeb as needed -Defer steroids to pulmonology -Chest x-ray this morning showing improvement groundglass opacity on the left side -Patient currently down to 2 L nasal cannula Leukocytosis likely due to steroids and reactive from surgery -Patient empirically started antibodies by primary team Gastric sleeve surgery Morbid obesity with BMI of 42 -As per your primary team Anxiety and depression -Resume home psych meds Gout -Resume allopurinol Thank you for the consult and we'll continue to follow along with you
--- NOTE | 2022-01-13 11:32 | P.PN ---
Subjective Progress Note Date: 01/13/22 01/12/2022, the patient is on 6 L of oxygen by nasal cannula. Overnight he was CPAP therapy at a pressure 15 cm of water. No shortness of breath. Upper GI series was done and the patient passed the patient is currently taking clear liquid diet. No nausea. No vomiting. No chest pain. No abdominal pain. Follow-up chest x-ray shows improvement in interstitial infiltrates. There is some residual infiltration of the right. No fever. No chills. The white cell count is at 18 with a hemoglobin of 11.7 01/13/2022, patient is on clear liquid diet. The patient is on 4 L of oxygen nasal cannula. The patient utilizing the CPAP overnight without any major difficulties. The patient has a white cell count of 18.2 from yesterday with a hemoglobin of 11.7. Last from today are still pending for now. Electrolytes are normal. He has no nausea no vomiting no abdominal pain no chest pain no shortness of breath and oxygenation continues to improve.. The patient has a negative fluid balance of 4.1 L over the past 24-48 hours. Objective - Vital Signs Vital signs: Vital Signs Temp 97.5 F L 01/13/22 07:53 Pulse 76 01/13/22 07:56 Resp 16 01/13/22 07:53 BP 112/67 01/13/22 07:53 Pulse Ox 96 01/13/22 07:53 FiO2 50 01/13/22 05:03 Intake & Output 01/12/22 01/13/22 01/13/22 18:59 06:59 18:59 Output Total 3000 1100 Balance -3000 -1100 Weight 136.078 kg Output: Urine 3000 1100 Uretheral (Shah) 1500 - Exam Morbidly obese, calm and comfortable, body mass index of 42, currently on 4 L O2 nasal cannula Head exam was generally normal. There was no scleral icterus or corneal arcus. Mucous membranes were moist. Neck was supple and without jugular venous distension, thyromegaly, or carotid bruits. Carotids were easily palpable bilaterally. There was no adenopathy. Mallampati class IV Lungs sounds are diminished bilaterally otherwise they're clear. No wheezes or rhonchi. Cardiac exam revealed the PMI to be normally situated and sized. The rhythm was regular and no extrasystoles were noted during several minutes of auscultation. The first and second heart sounds were normal and physiologic splitting of the second heart sound was noted. There were no murmurs, rubs, clicks, or gallops. Abdominal exam revealed normal bowel sounds. The abdomen was soft, non-tender, and without masses, organomegaly, or appreciable enlargement of the abdominal aorta. And the patient has clear surgical wound has over the anterior abdominal wall. No direct tenderness rebound tensile guarding. Examination of the extremities revealed easily palpable radial, femoral and pedal pulses. There was no cyanosis, clubbing or edema. Examination of the skin revealed no evidence of significant rashes, suspicious appearing nevi or other concerning lesions. Neurologically, the patient is awake and alert and the patient does not have any focal neurological deficit. Cranial nerves are essentially intact. - Labs CBC & Chem 7: 01/12/22 07:04 01/12/22 07:04 Labs: Abnormal Lab Results - Last 24 Hours (Table) 01/12/22 01/12/22 Range/Units 07:04 07:04 WBC 18.02 H (4.50-10.00) X 10*3/uL RBC 4.19 L (4.40-5.60) X 10*6/uL Hgb 11.7 L (13.0-17.0) g/dL Hct 37.1 L (39.6-50.0) % MCHC 31.5 L (32.0-37.0) g/dL Immature Gran # 0.11 H (0.00-0.04) X 10*3/uL Neutrophils # 15.63 H (1.80-7.70) X 10*3/uL Monocytes # 1.07 H (0.20-1.00) X 10*3/uL Eosinophils # 0 L (0.04-0.35) X 10*3/uL Calcium 8.4 L (8.7-10.3) mg/dL Assessment and Plan Plan: Acute hypoxemic respiratory failure currently for L O2 nasal cannula, clinically improving and the chest x-ray showing interstitial infiltrates that are also improving. Rule out negative pressure pulmonary edema as the patient has sig nificant degree of obstructive sleep apnea and this could've occurred post extubation. Gastric sleeve, robotic-assisted, postop day # 2, passed swallow evaluation currently on diet Severe obstructive sleep apnea, maintained on APAP machine Morbid obesity with a BMI of 42 Hypertension Fibromyalgia History of CML Hyperlipidemia COPD/asthma Previous history of COVID 19 infection, recovered nicely without any major issues Chronic anxiety Plan Chest x-ray is improving Wean down FiO2 to 2 L of oxygen by nasal cannula Gradually wean it down to maintain saturation above 90% Continue CPAP pressure 15 cm of water Advance diet as tolerated Monitor the white cell count Clinically improving and the patient is stable We'll continue to follow
[2022-01-13 12:18] LABS: Basophils # (A) 0.01 X 10*3/uL (0.00-0.10); Basophils % (A) 0.1 %; Eosinophils # (A) 0 X 10*3/uL (0.04-0.35); Eosinophils % (A) 0 %; HCT 35.3 % (39.6-50.0); Immature Grans, Automated 0.4 %; Lymphocytes # (A) 1.38 X 10*3/uL (0.90-5.00); Lymphocytes % (A) 7.8 %; MCH 27.8 pg (27.0-32.0); MCHC 31.2 g/dL (32.0-37.0); MCV 89.4 fL (80.0-97.0); Monocytes # (A) 1.23 X 10*3/uL (0.20-1.00); Monocytes % (A) 6.9 %; NRBC Per 100 WBC 0 /100 WBCS (0.0-0.0); Neutrophils # (A) 15.08 X 10*3/uL (1.80-7.70); Neutrophils % (A) 84.8 %; Platelet Count 141 X 10*3/uL (140-440); RBC 3.95 X 10*6/uL (4.40-5.60); RDW 13.5 % (11.5-14.5); WBC 17.78 X 10*3/uL (4.50-10.00)
[2022-01-13 12:40] LABS: African American GFR (CKD) 118.3 (60.0-200.0); Anion Gap 10.5 mmol/L (10.00-18.00); BUN/Creat Ratio 17.33 Ratio (12.00-20.00); Blood Urea Nitrogen 15.6 mg/dL (9.0-27.0); Calcium 8.2 mg/dL (8.7-10.3); Carbon Dioxide 25.5 mmol/L (20.0-27.5); Non-African American GFR(CKD) 102.1 (60.0-200.0); Potassium 4.2 mmol/L (3.5-5.5)
[2022-01-13] MEDS ORDERED: SODIUM CHLORIDE 0.9% 1,000 ML IV SCH (13:15)
[2022-01-13] MEDS: BOSUTINIB 100 MG PO SCH (18:13)
[2022-01-13 21:13] VITALS: RESP 18
--- NOTE | 2022-01-13 21:37 | P.PN ---
Subjective Progress Note Date: 01/13/22 CHIEF COMPLAINT: Morbid obesity HISTORY OF PRESENT ILLNESS: The patient is a 46-year-old male status post sleeve gastrectomy. He has pre-existing persistent hypotension. He has severe obstructive sleep apnea. He is still requiring oxygen. Overall, he is clinically improving ROS: No reports of nausea and vomiting. No bowel movements. No fevers or chills. No new chest pain. No productive sputum PHYSICAL EXAM: VITAL SIGNS: Reviewed CONSTITUTIONAL: Well developed and in no acute distress. EYES: Conjuctivae without sclera icterus. Extraocular movements grossly intact. HEAD, EARS, NOSE, THROAT: Moist buccal mucosa. Head is atraumatic, normocephalic. Hears conversational speech. No nasal drainage. RESPIRATORY: Non-labored respirations and equal bilateral excursions. CARDIOVASCULAR: Palpable 2+ radial pulses. ABDOMEN: Incisions clean dry and intact. A MUSCULOSKELETAL: No gross deformity of the lower extremities noted. No clubbing. No cyanosis. SKIN: Good skin turgor. Well perfused. NEUROLOGIC: Cranial nerves II through XII grossly intact. No focal or lateralizing signs. PSYCH: Appropriate affect. Alert and oriented to person, place and time. CLINICAL LABS: Reviewed. WBC elevated at 18-17.7. LFTs elevated REPORT: Chest x-ray demonstrates improved aeration of the lungs ASSESSMENT: 1. Morbid obesity and excess calories, BMI 41.8 2. Status post sleeve gastrectomy 3. Obstructive sleep apnea PLAN: 1. Continue hospitalization per recommendation pulmonary 2. Recommend ultrasound of the gallbladder for elevated LFTs 3. Repeat chest x-ray 4. Start bariatric full liquid protein shakes Objective - Vital Signs Vital signs: Vital Signs Temp 98.9 F 01/13/22 13:59 Pulse 99 01/13/22 13:59 Resp 17 01/13/22 13:59 BP 136/83 01/13/22 13:59 Pulse Ox 96 01/13/22 13:59 FiO2 50 01/13/22 05:03 Intake & Output 01/12/22 01/13/22 01/13/22 18:59 06:59 18:59 Output Total 3000 1100 Balance -3000 -1100 Weight 136.078 kg Output: Urine 3000 1100 Uretheral (Shah) 1500 - Labs CBC & Chem 7: 01/13/22 06:53 01/13/22 06:53 Labs: Abnormal Lab Results - Last 24 Hours (Table) 01/13/22 01/13/22 Range/Units 06:53 06:53 WBC 17.78 H (4.50-10.00) X 10*3/uL RBC 3.95 L (4.40-5.60) X 10*6/uL Hgb 11.0 L (13.0-17.0) g/dL Hct 35.3 L (39.6-50.0) % MCHC 31.2 L (32.0-37.0) g/dL Immature Gran # 0.08 H (0.00-0.04) X 10*3/uL Neutrophils # 15.08 H (1.80-7.70) X 10*3/uL Monocytes # 1.23 H (0.20-1.00) X 10*3/uL Eosinophils # 0 L (0.04-0.35) X 10*3/uL Calcium 8.2 L (8.7-10.3) mg/dL
[2022-01-14] MEDS: PIPERACILLIN-TAZOBACTAM 3.375 GM in SODIUM CHLORIDE 0.9% 100 ML IVPB SCH ×2 (00:08→07:41)
[2022-01-14] MEDS: SIMETHICONE 40 MG/0.6 ML DROPS 2,000 MG/30 ML BOTTLE PO SCH ×3 (00:11→12:59)
[2022-01-14] MEDS: ONDANSETRON 4 MG/2 ML VIAL IVP SCH ×2 (01:16→06:02)
[2022-01-14] MEDS: DEXAMETHASONE SOD PHOSPHATE 4 MG/ML 1 ML VIAL IVP SCH ×2 (01:16→06:02)
[2022-01-14 02:31] VITALS: TEMP 97
[2022-01-14] MEDS: HYDROmorphone 1 MG/ML 1 ML SYRINGE IVP PRN (06:02)
--- NOTE | 2022-01-14 07:06 | XR ---
EXAMINATION TYPE: XR chest 1V portable DATE OF EXAM: 01/14/2022 6:41 AM COMPARISON: Chest radiographs from 01/13/2022, 01/12/2022. TECHNIQUE: XR chest 1V portable Frontal view of the chest. CLINICAL INDICATION:Male, 46 years old with history of COPD, oxygen desaturation; FINDINGS: Patient is rotated which limits evaluation. Lungs/Pleura: Low lung volumes. There is no evidence of pleural effusion or pneumothorax. Resolution of previous is demonstrated interstitial changes. Pulmonary vascularity: Unremarkable. Heart/mediastinum: Cardiomediastinal silhouette is unremarkable. Musculoskeletal: No acute osseous pathology. IMPRESSION: Resolution of previously demonstrated interstitial changes.
[2022-01-14] MEDS: PANTOPRAZOLE 40 MG/10 ML VIAL IV SCH (07:21)
[2022-01-14] MEDS: ENOXAPARIN 40 MG/0.4 ML SYRINGE SQ SCH (07:41)
[2022-01-14] MEDS: allopurinoL 300 MG TAB PO SCH (07:42)
[2022-01-14] MEDS: DULoxetine HCL 60 MG CAPSULE.DR PO SCH (07:42)
[2022-01-14] MEDS: busPIRone HCl 10 MG TAB PO SCH (07:42)
[2022-01-14] MEDS: SYMBICORT 160-4.5 MCG INHALER INHALATION SCH (08:22)
[2022-01-14] MEDS: IPRATROPIUM-ALBUTEROL 3 ML NEB INHALATION SCH ×2 (08:22→11:56)
--- NOTE | 2022-01-14 08:38 | US ---
EXAMINATION TYPE: US gallbladder DATE OF EXAM: 01/14/2022 COMPARISON: CTA chest 06/27/2021. CLINICAL HISTORY: Elevated liver enzymes, cholecystitis. Elevated liver enzymes, cholecystitis. Gastr ic sleeve surgery. TECHNIQUE: Multiple sonographic images of the right upper quadrant are obtained. FINDINGS: EXAM MEASUREMENTS: Liver Length: 20.6 cm Gallbladder Wall: 0.23 cm CBD: Obscured Right Kidney: 12.4 x 7.1 x 5.8 cm PRODUCT SAFETY ADMINISTRATOR NOTES: Limited due to gas and patient body habitus. Pancreas: Obscured by gas. Liver: Appears heterogeneous and enlarged. Hyperechoic in appearance. Limited. Hyperechoic focus see n in the left lobe: 0.6 x 0.7 x 0.5 cm. This corresponds to a calcification on CT. Gallbladder: Limited evaluation. No shadowing calculi, wall thickening, or pericardial fluid. Evidence for sonographic Feldman's sign: No CBD: Obscured Right Kidney: No hydronephrosis or masses seen. No shadowing calculi. IMPRESSION: * Limited examination without ultrasound evidence for acute cholecystitis. * Hyperechoic heterogenous liver echotexture most consistent with hepatocellular disease which is mo st commonly seen with hepatic steatosis.
--- NOTE | 2022-01-14 10:29 | P.PN ---
Subjective Progress Note Date: 01/14/22 Patient was on BiPAP this morning. He denied any shortness of breath. Patient denies having a bowel movement. However he states that he is urinating well. 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 Psych - Calm and cooperative - Labs CBC & Chem 7: 01/13/22 06:53 01/13/22 06:53 Labs: Abnormal Lab Results - Last 24 Hours (Table) 01/13/22 01/13/22 Range/Units 06:53 06:53 WBC 17.78 H (4.50-10.00) X 10*3/uL RBC 3.95 L (4.40-5.60) X 10*6/uL Hgb 11.0 L (13.0-17.0) g/dL Hct 35.3 L (39.6-50.0) % MCHC 31.2 L (32.0-37.0) g/dL Immature Gran # 0.08 H (0.00-0.04) X 10*3/uL Neutrophils # 15.08 H (1.80-7.70) X 10*3/uL Monocytes # 1.23 H (0.20-1.00) X 10*3/uL Eosinophils # 0 L (0.04-0.35) X 10*3/uL Calcium 8.2 L (8.7-10.3) mg/dL Assessment and Plan Assessment: Acute hypoxic and hypercapnic respiratory failure Patient likely has underlying obesity hypoventilation syndrome Obstructive sleep apnea COPD and asthma not in exacerbation -Resume CPAP at night -Titrated O2 as tolerated -Encourage ambulation and incentive spirometer use -When patient is cleared for discharge he will need home O2 eval. -Resume Symbicort and DuoNeb as needed -Defer steroids to pulmonology -Chest x-ray this morning showing improvement -Patient currently down to 2 L nasal cannula Leukocytosis likely due to steroids and reactive from surgery -Patient empirically started antibodies by primary team -Improving Mildly elevated LFTs secondary to fatty liver -Ultrasound consistent with fatty liver -Patient asymptomatic Gastric sleeve surgery Morbid obesity with BMI of 42 -As per your primary team Anxiety and depression -Resume home psych meds Gout -Resume allopurinol Thank you for the consult and we'll continue to follow along with you
--- NOTE | 2022-01-14 13:19 | P.DS ---
Providers Date of admission: 01/11/22 06:09 Expected date of discharge: 01/14/22 Attending physician: Teresa Quinones Consults: 01/11/22 12:06 Consult Physician Routine Consulting Provider: Leonid Agosto Consult Reason/Comments: COPD, severe apnea Do you want consulting provider notified?: Yes 01/11/22 21:21 Consult Physician Routine Consulting Provider: Dulce Mosquera Consult Reason/Comments: Medical management Do you want consulting provider notified?: Yes Primary care physician: Gabino Mcmillan Hospital Course: Discharge diagnosis 1. Morbid obesity due to excess calories 2. Body mass index 46.0, initial 3. Fibromyalgia 4. Hypertensive heart disease 5. Chronic myelogenous leukemia 6. Depressive disorder 7. Osteoarthritis 8. Asthma 9. Chronic obstructive pulmonary disease 10. Generalized anxiety disorder 11. Motion sickness 12. Adverse event from medications with persistent hypotension during general induction 13. Epigastric, bilateral upper abdominal peritoneal adhesions 14. Severe obstructive sleep apnea 15. Leukocytosis likely secondary to steroids 16. Elevated LFTs with gallbladder ultrasound showing no acute cholecystitis. Hyperechoic heterogeneous liver echotexture most consistent with hepatocellular disease which is currently seen with hepatic steatosis Hospital course This is a 46-year-old male with a known history of morbid obesity. He is status post robotic laparoscopic sleeve gastrectomy, lysis of adhesions and intraoperative esophagogastroduodenoscopy. Patient's upper GI shows mild esophageal dysmotility. No evidence of leak or obstruction. Patient is tolerating diet. Has been up and ambulating. He denies any nausea or vomiting. He is currently on room air. He was seen evaluated by pulmonary for hypoxemia. He has been cleared for discharge by pulmonary service. Patient reports his pain is controlled. He is afebrile. He is stable for discharge. Physician Outsole Rounder note has been reviewed by physician. Signing provider agrees with the documented findings, assessment, and plan of care. Patient Condition at Discharge: Stable Plan - Discharge Summary Discharge Rx Participant: No New Discharge Prescriptions: New bisacodyL [Dulcolax] 5 mg PO DAILY PRN #10 tab PRN Reason: Constipation Simethicone 40 mg/0.6 ml Drops [Mylicon Drops] 40 mg PO PCHS PRN #30 ml PRN Reason: Gas Omeprazole [PriLOSEC] 40 mg PO DAILY #30 cap Ondansetron Odt [Zofran Odt] 4 mg PO Q8HR PRN #9 tab PRN Reason: Nausea Acetaminophen Tab [Tylenol] 1,000 mg PO Q6HR PRN #30 tablet PRN Reason: Pain Continue allopurinoL [Zyloprim] 300 mg PO DAILY Bosutinib [Bosulif] 200 mg PO PC-SUPPER Budesonide/Glycopyr/Formoterol [Breztri Aerosphere Inhaler] 2 puff INHALATION BID Albuterol Inhaler [Ventolin Hfa Inhaler] 1 puff INHALATION DIRECTED PRN PRN Reason: Shortness Of Breath DULoxetine HCL [Cymbalta] 60 mg PO BID busPIRone HCL 10 mg PO BID Discontinued Acetaminophen [Tylenol] 325 mg PO DIRECTED PRN PRN Reason: Headache Discharge Medication List allopurinoL [Zyloprim] 300 mg PO DAILY 06/05/18 [History] Bosutinib [Bosulif] 200 mg PO PC-SUPPER 02/21/21 [History] Albuterol Inhaler [Ventolin Hfa Inhaler] 1 puff INHALATION DIRECTED PRN 09/12/21 [History] Budesonide/Glycopyr/Formoterol [Breztri Aerosphere Inhaler] 2 puff INHALATION BID 09/12/21 [History] DULoxetine HCL [Cymbalta] 60 mg PO BID 01/10/22 [History] busPIRone HCL 10 mg PO BID 01/10/22 [History] Acetaminophen Tab [Tylenol] 1,000 mg PO Q6HR PRN #30 tablet 01/14/22 [Rx] Omeprazole [PriLOSEC] 40 mg PO DAILY #30 cap 01/14/22 [Rx] Ondansetron Odt [Zofran Odt] 4 mg PO Q8HR PRN #9 tab 01/14/22 [Rx] Simethicone 40 mg/0.6 ml Drops [Mylicon Drops] 40 mg PO PCHS PRN #30 ml 01/14/22 [Rx] bisacodyL [Dulcolax] 5 mg PO DAILY PRN #10 tab 01/14/22 [Rx] Follow up [facility]ment(s[facility] [facility] [place] Patient Instructions/Handouts: Abdominal Binder (DC), Nutrition after Bariatric Surgery (GEN), Laparoscopic Sleeve Gastrectomy (GEN) Activity/Diet/Wound Care/Special Instructions: HOME MEDS IN MED BIN IN MED ROOM START PROTEIN SHAKE FridayJAN 14 Liquid diet for 2 weeks until Jan 25 No lifting over 4 pounds in 4 weeks, Feb 11September Shower. No soaking in bath tubs 2 weeks, until Jan 25 Please notify your surgeon if you develop nausea and vomiting including new onset of abdominal pain. Continue to use incentive spirometry to prevent pneumonias. Please continue to ambulate at home to prevent blood clots in legs. Follow-up at the bariatric center. September shower. Dressings to be discontinued by surgeon in the office. Drink 64 oz of fluid daily. Start protein shakes on . Notify bariatric center for temp over 101.0, increased pain, drainage from incisions. No straws or carbonated beverages. Liquid diet only. Sugar content should be less than 6 g to avoid dumping syndrome. Take MOM for constipation. CRUSH, OPEN, OR CUT TABLETS LARGER THAN A SIZE OF A TIC TAC Discharge Disposition: HOME SELF-CARE
--- NOTE | 2022-01-14 13:53 | P.PN ---
Subjective Progress Note Date: 01/14/22 01/12/2022, the patient is on 6 L of oxygen by nasal cannula. Overnight he was CPAP therapy at a pressure 15 cm of water. No shortness of breath. Upper GI series was done and the patient passed the patient is currently taking clear liquid diet. No nausea. No vomiting. No chest pain. No abdominal pain. Follow-up chest x-ray shows improvement in interstitial infiltrates. There is some residual infiltration of the right. No fever. No chills. The white cell count is at 18 with a hemoglobin of 11.7 01/13/2022, patient is on clear liquid diet. The patient is on 4 L of oxygen nasal cannula. The patient utilizing the CPAP overnight without any major difficulties. The patient has a white cell count of 18.2 from yesterday with a hemoglobin of 11.7. Last from today are still pending for now. Electrolytes are normal. He has no nausea no vomiting no abdominal pain no chest pain no shortness of breath and oxygenation continues to improve.. The patient has a negative fluid balance of 4.1 L over the past 24-48 hours. Patient is seen today 01/14/2022 in follow-up on the regular medical floor. He is up ambulating in his room. Awake and alert in no acute distress. Maintaining good O2 saturations in the 90s on room air. He was using CPAP overnight without any issues. No new labs today. He is continued on DuoNeb inhalations, Symbicort, antibiotics in form of Zosyn. Lovenox for DVT prophylaxis. Objective - Vital Signs Vital signs: Vital Signs Temp 97.0 F L 01/14/22 02:00 Pulse 72 01/14/22 12:07 Resp 18 01/14/22 08:00 BP 115/73 01/14/22 08:00 Pulse Ox 95 01/14/22 11:56 FiO2 21 01/14/22 11:56 Intake & Output 01/13/22 01/14/22 01/14/22 18:59 06:59 18:59 Output Total 700 Balance -700 Output: Urine 700 Other: Voiding Method Indwelling Catheter # Voids 3 - Exam This is a very pleasant 46-year-old male patient, morbidly obese, calm and comfortable, body mass index of 42, currently on room air Head exam was generally normal. There was no scleral icterus or corneal arcus. Mucous membranes were moist. Neck was supple and without jugular venous distension, thyromegaly, or carotid bruits. Carotids were easily palpable bilaterally. There was no adenopathy. Mallampati class IV Lungs sounds are diminished bilaterally otherwise they're clear. No wheezes or rhonchi. Cardiac exam revealed the PMI to be normally situated and sized. The rhythm was regular and no extrasystoles were noted during several minutes of auscultation. The first and second heart sounds were normal and physiologic splitting of the second heart sound was noted. There were no murmurs, rubs, clicks, or gallops. Abdominal exam revealed normal bowel sounds. The abdomen was soft, non-tender, and without masses, organomegaly, or appreciable enlargement of the abdominal aorta. And the patient has clear surgical wound has over the anterior abdominal wall. No direct tenderness rebound tensile guarding. Examination of the extremities revealed easily palpable radial, femoral and pedal pulses. There was no cyanosis, clubbing or edema. Examination of the skin revealed no evidence of significant rashes, suspicious appearing nevi or other concerning lesions. Neurologically, the patient is awake and alert and the patient does not have any focal neurological deficit. Cranial nerves are essentially intact. - Labs CBC & Chem 7: 01/13/22 06:53 01/13/22 06:53 Assessment and Plan Assessment: Acute hypoxemic respiratory failure clinically improving and the chest x-ray showing interstitial infiltrates that are also improving. Rule out negative pressure pulmonary edema as the patient has significant degree of obstructive sleep apnea and this could've occurred post extubation. Improved and on room air Gastric sleeve, robotic-assisted, postop day # 3, passed swallow evaluation currently on diet Severe obstructive sleep apnea, maintained on APAP machine Morbid obesity with a BMI of 42 Hypertension Fibromyalgia History of CML Hyperlipidemia COPD/asthma Previous history of COVID 19 infection, recovered nicely without any major is sues Chronic anxiety Plan: The patient was seen and evaluated Stable and on room air Continue his home pulmonary medications and CPAP We will see as needed I have personally seen and examined the patient, performed the documentation and the assessment and plan as written. Number of minutes spent on the visit: 10.
[2022-01-14 14:33] VITALS: BP 143/88; PULSE 89
== END 2022-01-14 14:45 | disposition home or self-care (01) | DRG 619 ==
LOC: 2ORMAIN 06:09 → 4SSUR 13:20
PROVIDERS: ADMIT Surgery Plastic and Reconstructive Surgery; ATTEND Surgery Plastic and Reconstructive Surgery
PROC: 0DJ08ZZ Inspection of Upper Intestinal Tract, Via Natural or Artificial Opening Endoscopic (ICD-10-PCS; principal; 2022-01-11 10:55)
PROC: 0DB64Z3 Excision of Stomach, Percutaneous Endoscopic Approach, Vertical (ICD-10-PCS; principal; 2022-01-11 10:55)
PROC: 8E0W4CZ Robotic Assisted Procedure of Trunk Region, Percutaneous Endoscopic Approach (ICD-10-PCS; principal; 2022-01-11 10:55)
DX: E66.01 Morbid (severe) obesity due to excess calories (principal); J96.01 Acute respiratory failure with hypoxia; J96.02 Acute respiratory failure with hypercapnia; C92.10 Chronic myeloid leukemia, BCR/ABL-positive, not having achieved remission; K81.0 Acute cholecystitis; Z68.41 Body mass index [BMI] 40.0-44.9, adult; E78.5 Hyperlipidemia, unspecified; F32.A Depression, unspecified; F41.1 Generalized anxiety disorder; G47.33 Obstructive sleep apnea (adult) (pediatric); I11.9 Hypertensive heart disease without heart failure; J44.9 Chronic obstructive pulmonary disease, unspecified; I95.9 Hypotension, unspecified; K22.4 Dyskinesia of esophagus; K66.0 Peritoneal adhesions (postprocedural) (postinfection); K76.0 Fatty (change of) liver, not elsewhere classified; M10.9 Gout, unspecified; M19.90 Unspecified osteoarthritis, unspecified site; M79.7 Fibromyalgia; T38.0X5A Adverse effect of glucocorticoids and synthetic analogues, initial encounter; Z79.899 Other long term (current) drug therapy; Z80.42 Family history of malignant neoplasm of prostate; Z86.16 Personal history of COVID-19; Z88.0 Allergy status to penicillin; Z88.2 Allergy status to sulfonamides; Z87.11 Personal history of peptic ulcer disease
CPT/HCPCS: 71045; 74240; 76705; 80048; 80051; 80053; 82310; 82565; 82805; 83735; 84100; 84520; 85025; 86850; 86900; 86901; 88307; 94640; 94660; 94760

== ENCOUNTER → 2022-01-16 | Outpatient (CLI) | payer BC ==
[2022-01-16 15:15] VITALS: BP 136/85; PULSE 88; TEMP 99.3; BMI 42.7
--- NOTE | 2022-01-16 15:58 | P.BASOAP ---
Subjective Progress Note Date: 01/16/22 He had stomach cancer. Will print pathology. Doing well since surgery. He is appropriately surgery. Repeat colonoscopy for April due to poor prep. Lactulose prescribed. Objective - Vital Signs Vital signs: Vital Signs Temp 99.3 F 01/16/22 15:06 Pulse 88 01/16/22 15:06 Resp BP 136/85 01/16/22 15:06 Pulse Ox FiO2 Intake & Output 01/15/22 01/16/22 01/16/22 18:59 06:59 18:59 Weight 138.799 kg Assessment/Plan Plan: Date: 01/16/22 Initial Weight: 148.325 kg Initial BMI: 45.6 Current Weight: 138.799 kg Current BMI: 42.7 Type of Surgery: Total Volume in Band: Previous Volume: Volume Removed: Volume Added: Band Size:
== END | disposition home or self-care (01) ==
LOC: BARWHC3 14:57
PROVIDERS: ATTEND Surgery Plastic and Reconstructive Surgery
DX: E66.01 Morbid (severe) obesity due to excess calories (principal); Z68.42 Body mass index [BMI] 45.0-49.9, adult
CPT/HCPCS: 97802; 99211

== ENCOUNTER → 2022-02-16 | Outpatient (CLI) | payer BC ==
[2022-02-16 16:10] LABS: African American GFR (CKD) 124.2 (60.0-200.0); Albumin 4.6 g/dL (3.8-4.9); Albumin/Globulin Ratio 2.09 (1.60-3.17); Anion Gap 9.9 mmol/L (10.00-18.00); BUN/Creat Ratio 13.88 Ratio (12.00-20.00); Blood Urea Nitrogen 11.1 mg/dL (9.0-27.0); Calcium 9.6 mg/dL (8.7-10.3); Carbon Dioxide 29.1 mmol/L (20.0-27.5); Globulin 2.2 g/dL (1.6-3.3); Non-African American GFR(CKD) 107.1 (60.0-200.0); Potassium 4.1 mmol/L (3.5-5.5); Total Bilirubin 0.5 mg/dL (0.30-1.20); Total Protein 6.8 g/dL (6.2-8.2)
[2022-02-16 16:30] LABS: Basophils # (A) 0.12 X 10*3/uL (0.00-0.10); Basophils % (A) 1.5 %; Eosinophils # (A) 0.19 X 10*3/uL (0.04-0.35); Eosinophils % (A) 2.4 %; HGB 12.9 g/dL (13.0-17.0); Immature Grans, Automated 0.3 %; Lymphocytes # (A) 1.88 X 10*3/uL (0.90-5.00); MCH 27.7 pg (27.0-32.0); MCHC 31.5 g/dL (32.0-37.0); Monocytes # (A) 0.84 X 10*3/uL (0.20-1.00); Monocytes % (A) 10.7 %; NRBC Per 100 WBC 0 /100 WBCS (0.0-0.0); Neutrophils # (A) 4.79 X 10*3/uL (1.80-7.70); Neutrophils % (A) 61.1 %; Platelet Count 131 X 10*3/uL (140-440); RBC 4.66 X 10*6/uL (4.40-5.60); RDW 13.5 % (11.5-14.5); WBC 7.84 X 10*3/uL (4.50-10.00)
== END | disposition home or self-care (01) ==
LOC: LABWHC1 10:58
PROVIDERS: ATTEND Internal Medicine
DX: C92.10 Chronic myeloid leukemia, BCR/ABL-positive, not having achieved remission (principal)
CPT/HCPCS: 36415; 80053; 81206; 85025

== ENCOUNTER → 2022-04-10 | Outpatient (CLI) | payer BC ==
[2022-04-10 15:04] VITALS: BP 152/88; PULSE 82; TEMP 98.5; BMI 37.9
--- NOTE | 2022-04-10 15:34 | P.BASOAP ---
Subjective Progress Note Date: 04/10/22 He has lost 60 pounds. He sees his oncology doctor and doing well. He is seeking more weight loss. Needs of [facility] notes for oncology follow-up. Plan for labs. Recommend adjustment of diet. Recommend weight lifting. Objective - Vital Signs Vital signs: Vital Signs Temp 98.5 F 04/10/22 15:02 Pulse 82 04/10/22 15:02 Resp BP 152/88 04/10/22 15:02 Pulse Ox FiO2 Intake & Output 04/09/22 04/10/22 04/10/22 18:59 06:59 18:59 Weight 123.377 kg Assessment/Plan Plan: Date: 04/10/22 Initial Weight: 148.325 kg Initial BMI: 45.6 Current Weight: 123.377 kg Current BMI: 37.9 Type of Surgery: Total Volume in Band: Previous Volume: Volume Removed: Volume Added: Band Size:
== END ==
LOC: BARWHC3 14:02
PROVIDERS: ATTEND Surgery Plastic and Reconstructive Surgery
DX: E66.01 Morbid (severe) obesity due to excess calories (principal); Z68.37 Body mass index [BMI] 37.0-37.9, adult; Z91.011 Allergy to milk products; Z88.2 Allergy status to sulfonamides; Z88.0 Allergy status to penicillin
CPT/HCPCS: 97803; 99211

== ENCOUNTER → 2022-04-13 | Outpatient (CLI) | payer BC ==
[2022-04-13 10:28] LABS: Partial Thromboplastin Time 25.5 sec (22.0-30.0); Prothrombin Time 10.5 sec (9.0-12.0)
[2022-04-13 17:50] LABS: HCT 41.7 % (39.6-50.0); HGB 12.9 g/dL (13.0-17.0); MCH 26.8 pg (27.0-32.0); MCHC 30.9 g/dL (32.0-37.0); MCV 86.5 fL (80.0-97.0); Mean Platelet Volume 14.2 fL (9.5-12.2); NRBC Per 100 WBC 0 /100 WBCS (0.0-0.0); Platelet Count 142 X 10*3/uL (140-440); RBC 4.82 X 10*6/uL (4.40-5.60); RDW 13.7 % (11.5-14.5); WBC 8.65 X 10*3/uL (4.50-10.00)
[2022-04-13 18:07] LABS: % Iron Saturation 23.69 (15.00-50.00); ALT 26 U/L (10-49); AST 16 U/L (14-35); African American GFR (CKD) 121.5 (60.0-200.0); Albumin 4.5 g/dL (3.8-4.9); Albumin/Globulin Ratio 2.01 (1.60-3.17); Alkaline Phosphatase 56 U/L (41-126); BUN/Creat Ratio 12.34 Ratio (12.00-20.00); Blood Urea Nitrogen 10.4 mg/dL (9.0-27.0); Calcium 9.3 mg/dL (8.7-10.3); Carbon Dioxide 26.1 mmol/L (20.0-27.5); Chloride 103 mmol/L (96-109); Globulin 2.3 g/dL (1.6-3.3); Glucose 84 mg/dL (70-110); Iron 78 ug/dL (65-175); Magnesium 2.1 mg/dL (1.5-2.4); Non-African American GFR(CKD) 104.9 (60.0-200.0); Phosphorus 3.2 mg/dL (2.4-5.1); Potassium 4.1 mmol/L (3.5-5.5); Sodium 142 mmol/L (135-145); Total Iron Binding Capacity 328 ug/dL (228-460); Total Protein 6.8 g/dL (6.2-8.2)
[2022-04-13 21:21] LABS: Prealbumin 25.4 mg/dL (18.0-42.0)
[2022-04-13 21:23] LABS: Chol/HDL Ratio 2.92 Ratio; LDL Cholesterol,Calculated 71.9 mg/dL (0.0-131.0); VLDL Calculation 15.64 mg/dL (5.00-40.00)
[2022-04-16 06:31] LABS: Vitamin A 46 ug/dL (38-106)
[2022-04-16 07:21] LABS: Zinc, Serum 71 ug/dL (60-130)
== END | disposition home or self-care (01) ==
LOC: LABWHC1 09:14
PROVIDERS: ATTEND Surgery Plastic and Reconstructive Surgery
DX: K91.2 Postsurgical malabsorption, not elsewhere classified (principal); D50.8 Other iron deficiency anemias; E44.0 Moderate protein-calorie malnutrition; E44.1 Mild protein-calorie malnutrition; E45 Retarded development following protein-calorie malnutrition; E55.9 Vitamin D deficiency, unspecified; K74.1 Hepatic sclerosis; N19 Unspecified kidney failure; T56.894A Toxic effect of other metals, undetermined, initial encounter
CPT/HCPCS: 36415; 80053; 80061; 82306; 82525; 82607; 82728; 82746; 83036; 83540; 83550; 83735; 83970; 84100; 84134; 84255; 84425; 84443; 84590; 84630; 85027; 85610; 85730

== ENCOUNTER → 2022-05-29 | Outpatient (CLI) | payer BC ==
--- NOTE | 2022-05-29 16:04 | P.PN ---
Subjective DATE: 05/29/2022 FOLLOW UP VISIT. Patient with obstructive sleep apnea hypopnea syndrome return to sleep center for follow-up visit. Information from previous visit have been reviewed. Patient is using PAP equipment every night for the whole night, getting PAP supplies in time. Patient had gastric sleeve surgery and lost 60 pounds. The patient does not have significant problems with the mask, PAP unit and humidification. [place] sleepiness scale is 8, which is normal. I checked information from PAP unit. PAP unit pressure 12-19, average 13.7 cm H2O. Usage is 100 % for more then 4 hours, average 7.5 hours per night. Leak is high 56 l/m. Apnea Hypopnea Index is 1.5, which is normal. MEDICATIONS:1. Bosulif 200 mg once a day 2. Buspirone 10 mg twice a day 3. Duloxetine 60 mg twice a day 4. Verapamil 360 mg once a day 5. Allopurinol 300 mg once a day During physical exam: GENERAL: A pleasant patient without any distress. VITAL SIGNS: BP 151/84, HR 86, RR 18, weight 269.2, temperature 97.1, oxygen saturation at room air 97 % . HEENT: PERRLA, EOMI.low position of soft palate, Mallapati 4 . NECK: Supple. No JVD. LUNGS: Clear to percussion and to auscultation. Good air exchange. No wheezing or rhonchi. HEART: S1, S2 regular. ABDOMEN: Soft and nontender. Slightly obese EXTREMITIES: No clubbing or cyanosis. BURLING AND JOINING SUPERVISOR: Awake, alert, and oriented x3. No focal deficit. Impressions: 1. Obstructive sleep apnea-hypopnea syndrome. Patient demonstrated great compliance with treatment, benefiting from treatment. 2. Obesity patient lost 60 pounds since previous visit. 3. Status post gastric sleeve surgery. 4. Hypertension. 5. Chronic myelocytic leukemia. 6. Gout. 7. History of fibromyalgia. Plan: 1. Continue using PAP equipment every night for the whole night. I decreased pressure in AutoPAP unit to the range 9-16 cm of water. 2. To change air filter at least 1-2 times per month. 3. PAP unit should stay lower then position of the head. 4. Advised patient to remove all remaining water from humidifier canister daily and make it dry after each usage. Refill canister with fresh distilled water before each usage. 5. Sleep hygiene with regular time in bed for at least 8 hours. 6. Precautions related to driving. No driving if feel any sleepiness. 7. I will maintain prescription for PAP supplies including mask, tube, filters. 8. Follow up visit in 6 months or earlier if patient has any problems. 9. Watching and continue losing weight. Thank you very much for allowing me to participate in the management of your patient. Yovani Chew MD, PhD, FAASM. Diplomat of [place] [employer], Sleep Medicine Board by [place] [employer] Scientific Illustrator of [facility] [place]
== END | disposition home or self-care (01) ==
LOC: SLEEP 15:40
PROVIDERS: ATTEND Internal Medicine
DX: G47.33 Obstructive sleep apnea (adult) (pediatric) (principal); C92.10 Chronic myeloid leukemia, BCR/ABL-positive, not having achieved remission; E66.9 Obesity, unspecified; I10 Essential (primary) hypertension; M10.9 Gout, unspecified; M79.7 Fibromyalgia; Z98.84 Bariatric surgery status; Z79.899 Other long term (current) drug therapy; Z88.0 Allergy status to penicillin; Z88.2 Allergy status to sulfonamides; Z91.011 Allergy to milk products
CPT/HCPCS: 99212

== ENCOUNTER → 2022-10-03 | Outpatient (CLI) | payer BC | END | disposition home or self-care (01) | LOC: LABWHC1 07:52 | PROVIDERS: ATTEND Internal Medicine Interventional Cardiology | DX: Z53.9 Procedure and treatment not carried out, unspecified reason (principal) ==

== ENCOUNTER → 2022-10-03 | Outpatient (CLI) | payer BC ==
[2022-10-03 15:49] LABS: HCT 43.4 % (39.6-50.0); HGB 13.4 g/dL (13.0-17.0); MCH 27.5 pg (27.0-32.0); MCHC 30.9 g/dL (32.0-37.0); MCV 89.1 fL (80.0-97.0); NRBC Per 100 WBC 0 /100 WBCS (0.0-0.0); Platelet Count 127 X 10*3/uL (140-440); RBC 4.87 X 10*6/uL (4.40-5.60); RDW 13.6 % (11.5-14.5); WBC 8.98 X 10*3/uL (4.50-10.00)
[2022-10-03 15:50] LABS: LDL Cholesterol,Calculated 80.6 mg/dL (0.0-131.0); VLDL Calculation 15.62 mg/dL (5.00-40.00)
[2022-10-03 15:51] LABS: ALT 22 U/L (10-49); AST 19 U/L (14-35); African American GFR (CKD) 113.5 (60.0-200.0); Blood Urea Nitrogen 10.5 mg/dL (9.0-27.0); Carbon Dioxide 27.6 mmol/L (20.0-27.5); Chloride 106 mmol/L (96-109); Non-African American GFR(CKD) 97.9 (60.0-200.0); Potassium 3.9 mmol/L (3.5-5.5); Sodium 144 mmol/L (135-145)
== END | disposition home or self-care (01) ==
LOC: LABPAT 07:55
PROVIDERS: ATTEND Internal Medicine Interventional Cardiology
DX: Z01.812 Encounter for preprocedural laboratory examination (principal); R06.02 Shortness of breath
CPT/HCPCS: 80051; 80061; 82565; 84450; 84460; 84520; 85027

== ENCOUNTER → 2022-10-09 | Day surgery (SDC) | payer BC ==
[2022-10-07 15:44] VITALS: BMI 35.5
[~2022-10-09] MED LIST changes: +ALPRAZolam 0.25 MG TAB PO PRN; +ALPRAZolam 0.5 MG TAB PO PRN; +ASPIRIN 325 MG TAB PO ONE; +ASPIRIN 81 MG PO ONE; +ATORVASTATIN 80 MG TAB PO ONE; -DEXAMETHASONE SOD PHOSPHATE 4 MG/ML 1 ML VIAL IV ONE; +HEPARIN SODIUM 1,000 UN/ML (10ML VL) IV ONE; +HEPARIN SODIUM,PORCINE 10,000 UNIT in SODIUM CHLORIDE 0.9% 1,000 ML IRRIGATION PRN; +HEPARIN SODIUM,PORCINE 2,500 UNIT in SODIUM CHLORIDE 0.9% 250 ML IRRIGATION PRN; +IOPAMIDOL-370 200ML BTL INJ ONE; -LIDOCAINE 1% (10MG/ML) FOR IV START INTRADERMA PRN; +LIDOCAINE 1% INJ 10MG/ML (5 ML VIAL-PF) SQ ONE; +MIDAZOLAM 2 MG/2 ML VIAL IV ONE; -MIDAZOLAM 2 MG/2 ML VIAL IV PRN; +NITROGLYCERIN SL TABS 0.4 MG TAB SUBLINGUAL PRN; -ONDANSETRON 4 MG/2 ML VIAL IVP ONE; +RX INFO: IV CONTRAST WAS GIVEN 1 EACH MISC MISCELLANE PRN; +SODIUM CHLORIDE 0.9% 1,000 ML IV SCH; +SODIUM CHLORIDE 0.9% 1,000 ML in EMPTY BAG 1 BAG IV SCH; +VERAPAMIL SR 180 MG TABLET.ER PO STA; +VERAPAMIL SYRINGE (5 MG/10 ML) INTRAARTER ONE; -ceFAZolin 3 GM in SODIUM CHLORIDE 0.9% 100 ML IVPB PRN
[2022-10-09 07:08] VITALS: RESP 16; TEMP 98.5
--- NOTE | 2022-10-09 08:40 | P.PCN ---
Date of Procedure: 10/09/22 Operative Findings: CARDIAC CATHETERIZATION PERFORMING PHYSICIAN: Case Peters MD, RPVI PROCEDURE PERFORMED: 1. Selective right and left coronary angiogram 2. Left heart catheterization INDICATION: Shortness of breath and this 47-year-old gentleman who underwent myocardial perfusion imaging stress test showed lateral ischemia COMPLICATION: None APPROACH: Right radial artery LEVEL OF SEDATION: Moderate with a sedation length of 14 minutes PROCEDURE DESCRIPTION: After obtaining an informed consent, the patient was brought to cardiac laborer salvage. Local anesthesia was performed using lidocaine subcutaneously. The right radial artery was cannulated using Seldinger technique, the guidewire passed easily, following that we advanced a 5-Tristanian sheath dilator assembly, the wire and dilator were removed and sheath was flushed. Following that, 2 mg of verapamil along with 5000 unit heparin were given. Selective right and left coronary angiogram using a 6-Tristanian JR4 and JL 3.5 catheters. Following that we did left heart catheterization using 6-Tristanian pigtail catheter. The procedure was completed there was no complication. SELECTIVE CORONARY ANGIOGRAM: The right coronary artery: Large caliber vessel and a dominant vessel. Its angiographically normal. Left main: It is normal. Bifurcates into LCx and LAD The left circumflex: Large caliber vessel. Its angiographically normal. Gives rise into an OM1 which works as a ramus intermedius appears to be angiographically normal The left anterior descending artery: As caliber vessel and appears to be angiographically normal as well otherwise the LAD gives rises into multiple diagonal branches appears to be angiographically normal HEMODYNAMICS: LVEDP was 14 mmHg was no significant gradient across aortic valve CONCLUSION: 1. Normal coronary angiogram 2. Normal left-sided filling pressure POSTPROCEDURE MANAGEMENT: Medical treatment and follow-up with the patient
[2022-10-09 15:42] VITALS: PULSE 94
[2022-10-09 15:43] VITALS: BP 161/73
== END ==
LOC: CATHCVL 06:13
PROVIDERS: ATTEND Internal Medicine Interventional Cardiology
DX: R06.02 Shortness of breath (principal); Z88.2 Allergy status to sulfonamides
CPT/HCPCS: 93458; C1769; C1894; J2250; J2001; J1644; Q9967

== ENCOUNTER 2022-10-14 08:41 | Day surgery (SDC) | payer BC ==
--- NOTE | 2022-10-14 07:50 | P.GSHP ---
History of Present Illness H&P Date: 10/14/22 CHIEF COMPLAINT: Colon screen HISTORY OF PRESENT ILLNESS: The patient is a 47-year-old male who presents for colon screen. Lower endoscopy was offered for further evaluation and management. PAST MEDICAL HISTORY: Please see list. PAST SURGICAL HISTORY: Please see list. MEDICATIONS: Please see list. ALLERGIES: Please see list. SOCIAL HISTORY: No illicit drug use FAMILY HISTORY: No reports of Crohn disease or ulcerative colitis. REVIEW OF ORGAN SYSTEMS: CONSTITUTIONAL: No reports of fevers or chills. PHYSICAL EXAM: VITAL SIGNS: Stable GENERAL: Well-developed pleasant in no acute distress. HEENT: No scleral icterus. Extraocular movements grossly intact. Moist buccal mucosa. NECK: Supple without lymphadenopathy. CHEST: Unlabored respirations. Equal bilateral excursions. CARDIOVASCULAR: Regular rate and rhythm. Distal 2+ pulses. ABDOMEN: Soft, nontender, nondistended. MUSCULOSKELETAL: No clubbing, cyanosis, or edema. ASSESSMENT: 1. Colon screen. PLAN: 1. Recommend proceeding with a lower endoscopy Past Medical History Past Medical History: Asthma, Cancer, Fibromyalgia, Hyperlipidemia, Hypertension, Pneumonia, Sleep Apnea/CPAP/BIPAP Additional Past Medical History / Comment(s): CML, GOUT, HX MONO, COVID X2 (JAN & MAY 2021)., HX ULCERS., GASTRIC SLEEVE SURGERY 01/07/22 ABORTED DUE TO LOW BLOODPRESSURE. History of Any Multi-Drug Resistant Organisms: None Reported Past Surgical History: Bariatric Surgery, Heart Catheterization Additional Past Surgical History / Comment(s): Heart cath 2013. Dental work, EGD, COLONOSCOPY, gastric sleeve 01/11/22 Past Anesthesia/Blood Transfusion Reactions: Previous Problems w/ Anesthesia, Motion Sickness Additional Past Anesthesia/Blood Transfusion Reaction / Comment(s): PT CAME FOR GASTRIC SLEEVE ON 01/07/22 AND STATES WHEN THEY GAVE HIM ANESTHESIA HIS BLOODPRESSURE DROPPED AND SURGERY WAS ABORTED-SINCE THEN HE HAS NOT TAKEN HIS VERAPAMIL, HCTZ-OLMESARTAN AND POTASSIUM. , WAS SEEN BY CARDIOLOGY IN HOSPITAL AND ECHOCARDIOGRAM DONE (EMR) Past Psychological History: Anxiety, Depression Smoking Status: Never smoker Past Alcohol Use History: Rare Past Drug Use History: None Reported - Past Family History Father Family Medical History: Cancer Additional Family Medical History / Comment(s): prostate, colon cancers Medications and Allergies Home Medications Medication Instructions Recorded Confirmed Type allopurinoL [Zyloprim] 300 mg PO DAILY 06/05/18 10/10/22 History Bosutinib [Bosulif] 200 mg PO PC-SUPPER 02/21/21 10/10/22 History Albuterol Inhaler [Ventolin Hfa 1 puff INHALATION DIRECTED PRN 09/12/21 10/10/22 History Inhaler] DULoxetine HCL [Cymbalta] 60 mg PO BID 01/10/22 10/10/22 History busPIRone HCL 10 mg PO BID 01/10/22 10/10/22 History Acetaminophen Tab [Tylenol] 1,000 mg PO Q6HR PRN #30 tablet 01/14/22 10/10/22 Rx Ondansetron Odt [Zofran ODT] 4 mg PO Q8HR PRN #9 tab 01/14/22 10/10/22 Rx Bariatric Multivitamin 1 tab PO DAILY 10/07/22 10/10/22 History Calcium Carbonate [Calcium] 600 mg PO DAILY 10/07/22 10/10/22 History Ferrous Sulfate [Iron (65 MG 325 mg PO DAILY 10/07/22 10/10/22 History Elemental)] Verapamil HCl [Verelan] 360 mg PO DAILY 10/07/22 10/10/22 History calcium polycarbophiL [Fibercon] 625 mg PO DAILY 10/07/22 10/10/22 History Budesonide/Glycopyr/Formoterol 2 puff INHALATION BID 10/09/22 10/10/22 History [Breztri Aerosphere Inhaler] Allergies Allergy/AdvReac Type Severity Reaction Status Date / Time Penicillins Allergy Rash/Hives Verified 10/10/22 09:25 lactose AdvReac Nausea & Verified 10/10/22 09:25 Vomiting & Diarrhea Sulfa (Sulfonamide AdvReac Rash/Hives Verified 10/10/22 09:25 Antibiotics)
[~2022-10-14 08:41] MED LIST changes: -ALPRAZolam 0.25 MG TAB PO PRN; -ALPRAZolam 0.5 MG TAB PO PRN; -ASPIRIN 325 MG TAB PO ONE; +ASPIRIN 81 MG ONE; -ASPIRIN 81 MG PO ONE; -ATORVASTATIN 80 MG TAB PO ONE; -HEPARIN SODIUM 1,000 UN/ML (10ML VL) IV ONE; +HEPARIN SODIUM 1,000 UN/ML (10ML VL) ONE; -HEPARIN SODIUM,PORCINE 10,000 UNIT in SODIUM CHLORIDE 0.9% 1,000 ML IRRIGATION PRN; -HEPARIN SODIUM,PORCINE 2,500 UNIT in SODIUM CHLORIDE 0.9% 250 ML IRRIGATION PRN; -IOPAMIDOL-370 200ML BTL INJ ONE; -LIDOCAINE 1% INJ 10MG/ML (5 ML VIAL-PF) SQ ONE; -MIDAZOLAM 2 MG/2 ML VIAL IV ONE; -NITROGLYCERIN SL TABS 0.4 MG TAB SUBLINGUAL PRN; -RX INFO: IV CONTRAST WAS GIVEN 1 EACH MISC MISCELLANE PRN; -SODIUM CHLORIDE 0.9% 1,000 ML IV SCH; -SODIUM CHLORIDE 0.9% 1,000 ML in EMPTY BAG 1 BAG IV SCH; +VERAPAMIL 2.5 MG/ML 2 ML AMP ONE; -VERAPAMIL SR 180 MG TABLET.ER PO STA; -VERAPAMIL SYRINGE (5 MG/10 ML) INTRAARTER ONE
[2022-10-14] MEDS ORDERED: LACTATED RINGERS 1,000 ML IV ONE (09:23)
[2022-10-14 09:46] VITALS: TEMP 97.6
[2022-10-14] MEDS ORDERED: PROPOFOL 10 MG/ML 20 ML VIAL IV ONE (09:51)
--- NOTE | 2022-10-14 10:19 | P.PCN ---
Date of Procedure: 10/14/22 Description of Procedure: PREOPERATIVE DIAGNOSIS: Personal history of colon polyps Personal history gastrointestinal malignancy Family history colon cancer POSTOPERATIVE DIAGNOSIS: Personal history of colon polyps Personal history gastrointestinal malignancy Family history colon cancer Chronic constipation OPERATION: Colonoscopy to the cecum SURGEON: Teresa Quinones MD. ANESTHESIA: MAC. INDICATIONS: The patient is a 47-year-old male who presents with recent diagnosis of gastrointestinal malignancy and family history of colon cancer. Benefits and risks were described and informed consent was obtained. DESCRIPTION OF PROCEDURE: The patient had undergone Sutab prep. The patient had been brought into the operating room and laid in the left lateral decubitus position. After adequate intravenous sedation, the rectum was examined with 2% lidocaine jelly. No external hemorrhoids were encountered. The rectal tone was within normal limits. No lesions were palpated in the rectal vault. An Olympus colonoscope was advanced until the cecum, ileocecal valve and appendiceal orifice were clearly viewed. The prep was fair to poor with residual liquid stool obscuring the mucosa. No large scattered diverticulosis was encountered. No large colonic polyps were found. No evidence of focal colitis was found. Retroflexion of the scope demonstrated grade 1 internal hemorrhoids without active bleeding or inflammation. The colon was desufflated. The patient had tolerated the procedure well. Withdrawal time was over 6 minutes. FINDINGS: Aronchick preparation quality scale 3+ (1-5) Internal hemorrhoids, grade 1 No external prolapsed hemorrhoids. No arteriovenous malformations. No adenomatous polyps. No focal colitis. Moderate reduced visibility for colon polyps due to poor prep. RECOMMENDATIONS: Lower endoscopy in 3 years, 2025 Plan - Discharge Summary New Discharge Prescriptions: Continue allopurinoL [Zyloprim] 300 mg PO DAILY Bosutinib [Bosulif] 200 mg PO PC-SUPPER Verapamil HCl [Verelan] 360 mg PO DAILY Calcium Carbonate [Calcium] 600 mg PO DAILY Bariatric Multivitamin 1 tab PO DAILY Budesonide/Glycopyr/Formoterol [Breztri Aerosphere Inhaler] 2 puff INHALATION BID Albuterol Inhaler [Ventolin Hfa Inhaler] 1 puff INHALATION DIRECTED PRN PRN Reason: Shortness Of Breath DULoxetine HCL [Cymbalta] 60 mg PO BID busPIRone HCL 10 mg PO BID Ondansetron Odt [Zofran ODT] 4 mg PO Q8HR PRN #9 tab PRN Reason: Nausea Acetaminophen Tab [Tylenol] 1,000 mg PO Q6HR PRN #30 tablet PRN Reason: Pain calcium polycarbophiL [Fibercon] 625 mg PO DAILY Ferrous Sulfate [Iron (65 MG Elemental)] 325 mg PO DAILY Discharge Medication List allopurinoL [Zyloprim] 300 mg PO DAILY 06/05/18 [History] Bosutinib [Bosulif] 200 mg PO PC-SUPPER 02/21/21 [History] Albuterol Inhaler [Ventolin Hfa Inhaler] 1 puff INHALATION DIRECTED PRN 09/12/21 [History] DULoxetine HCL [Cymbalta] 60 mg PO BID 01/10/22 [History] busPIRone HCL 10 mg PO BID 01/10/22 [History] Acetaminophen Tab [Tylenol] 1,000 mg PO Q6HR PRN #30 tablet 01/14/22 [Rx] Ondansetron Odt [Zofran ODT] 4 mg PO Q8HR PRN #9 tab 01/14/22 [Rx] Bariatric Multivitamin 1 tab PO DAILY 10/07/22 [History] Calcium Carbonate [Calcium] 600 mg PO DAILY 10/07/22 [History] Ferrous Sulfate [Iron (65 MG Elemental)] 325 mg PO DAILY 10/07/22 [History] Verapamil HCl [Verelan] 360 mg PO DAILY 10/07/22 [History] calcium polycarbophiL [Fibercon] 625 mg PO DAILY 10/07/22 [History] Budesonide/Glycopyr/Formoterol [Breztri Aerosphere Inhaler] 2 puff INHALATION BID 10/09/22 [History] [facility]Ref[place] Patient Instructions/Handouts: *Surgery [facility] - (Anesthesia) Discharge Instructions Outpatient Surgery, Colonoscopy (DC) Activity/Diet/Wound Care/Special Instructions: Repeat colonoscopy 3 years, 2025 Discharge Disposition: HOME SELF-CARE
[2022-10-14 10:53] VITALS: BP 123/76; PULSE 76; RESP 20
== END 2022-10-14 10:55 | disposition home or self-care (01) ==
LOC: ORWHC2ENDO 08:41
PROVIDERS: ATTEND Surgery Plastic and Reconstructive Surgery
DX: K64.0 First degree hemorrhoids (principal); Z85.038 Personal history of other malignant neoplasm of large intestine; Z86.010 Personal history of colon polyps; Z80.0 Family history of malignant neoplasm of digestive organs; J45.909 Unspecified asthma, uncomplicated; E78.5 Hyperlipidemia, unspecified; I10 Essential (primary) hypertension; M10.9 Gout, unspecified; G47.33 Obstructive sleep apnea (adult) (pediatric); M79.7 Fibromyalgia; F41.9 Anxiety disorder, unspecified; F32.A Depression, unspecified; F10.20 Alcohol dependence, uncomplicated; Z79.51 Long term (current) use of inhaled steroids; Z79.899 Other long term (current) drug therapy; Z86.16 Personal history of COVID-19; Z98.84 Bariatric surgery status; Z88.0 Allergy status to penicillin; Z88.2 Allergy status to sulfonamides; Z91.011 Allergy to milk products
CPT/HCPCS: 45378; J2704

== ENCOUNTER → 2022-11-06 | Outpatient (CLI) | payer BC ==
[2022-11-06 17:35] VITALS: BP 155/95; PULSE 90; RESP 16; TEMP 98.1; BMI 36.8
--- NOTE | 2023-01-05 21:00 | P.BASOAP ---
Subjective Progress Note Date: 11/06/22 DATE OF SERVICE: 11/06/2022 CHIEF COMPLAINT: Status post sleeve gastrectomy HISTORY OF PRESENT ILLNESS: Jamal Ward is a 47-year-old male status post sleeve gastrectomy 01/11/2022. He is over 9 months out. No reports of gastroesophageal reflux disease. He is status post colonoscopy 3 weeks ago with very poor prep. No blood in stools. He has personal history of gastric adenoma. He is doing well. At height of 5 feet 11 inches, ideal body weight is 178 pounds. His highest weight is 329 pounds, body mass index 46.0. He comes in 263 pounds from 283 pounds in 10 months ago. He has lost 20 pounds in 10 months. His body mass index is 36.8. He is 85 pounds overweight. Lifetime weight loss of 66 pounds. Lifetime percent excess weight loss of 43 %. PHYSICAL EXAM: VITAL SIGNS: Height 5 foot 11 inches, weight 263 pounds. BMI 36.8 Vital Signs Temp 98.1 F 11/06/22 17:25 Pulse 90 11/06/22 17:25 Resp 16 11/06/22 17:25 BP 155/95 11/06/22 17:25 Pulse Ox FiO2 GENERAL: Well-developed in no acute distress. HEENT: No scleral icterus. Extraocular movements grossly intact. Hears conversational speech. No nasal drainage. NECK: Supple without lymphadenopathy. CHEST: Nonlabored respirations with equal bilateral excursions. CARDIOVASCULAR: Regular rate. Distal 2+ pulses. ABDOMEN: Obese, soft, nontender, nondistended. MUSCULOSKELETAL: No clubbing, cyanosis. NEURO: No focal or lateralizing signs. Cranial nerves 2 through 12 grossly within normal limits. PSYCH: Appropriate affect. Alert and oriented to person, place and time. SKIN: Good skin turgor. Well perfused. COLON FINDINGS: Aronchick preparation quality scale 3+ (1-5) Internal hemorrhoids, grade 1 No external prolapsed hemorrhoids. No arteriovenous malformations. No adenomatous polyps. No focal colitis. Moderate reduced visibility for colon polyps due to poor prep. ASSESSMENT: 1. Morbid obesity due to excess calories 2. Body mass index 46.0 to 36.8 3. Fibromyalgia 4. Hypertensive heart disease 5. Chronic myelogenous leukemia 6. Depressive disorder 7. Osteoarthritis 8. Asthma 9. Chronic obstructive pulmonary disease 10. Generalized anxiety disorder 11. Motion sickness 12. Gastric ulcers 13. 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 Status post sleeve gastrectomy 16. Family colon polyps PLAN: 1. Recommend bariatric labs 2. Protein intake of 75 to 90 grams daily. 3. Repeat colonoscopy in 2 years due to personal and family risks Objective - Vital Signs Vital signs: Vital Signs Temp 98.1 F 11/06/22 17:25 Pulse 90 11/06/22 17:25 Resp 16 11/06/22 17:25 BP 155/95 11/06/22 17:25 Pulse Ox FiO2 Assessment/Plan Plan: Date: 11/06/22 Initial Weight: 148.325 kg Initial BMI: 45.6 Current Weight: 119.748 kg Current BMI: 36.8 Type of Surgery: Vertical Sleeve Gastrectomy Total Volume in Band: Previous Volume: Volume Removed: Volume Added: Band Size:
== END ==
LOC: BARWHC3 16:44
PROVIDERS: ATTEND Surgery Plastic and Reconstructive Surgery
DX: E66.01 Morbid (severe) obesity due to excess calories (principal); Z68.42 Body mass index [BMI] 45.0-49.9, adult; M79.7 Fibromyalgia; I11.9 Hypertensive heart disease without heart failure; F32.A Depression, unspecified; M19.90 Unspecified osteoarthritis, unspecified site; F41.1 Generalized anxiety disorder; J44.9 Chronic obstructive pulmonary disease, unspecified; C92.10 Chronic myeloid leukemia, BCR/ABL-positive, not having achieved remission; T75.3XXA Motion sickness, initial encounter; K25.9 Gastric ulcer, unspecified as acute or chronic, without hemorrhage or perforation; Z98.84 Bariatric surgery status; K29.50 Unspecified chronic gastritis without bleeding; Z83.71 Family history of colonic polyps; Z71.3 Dietary counseling and surveillance; Z88.0 Allergy status to penicillin; Z91.011 Allergy to milk products; Z88.2 Allergy status to sulfonamides
CPT/HCPCS: 97803; 99211

== ENCOUNTER → 2022-11-09 | Outpatient (CLI) | payer BC ==
[2022-11-09 10:13] LABS: Partial Thromboplastin Time 25.3 sec (22.0-30.0); Prothrombin Time 10.5 sec (9.0-12.0)
[2022-11-09 13:34] LABS: HCT 44.6 % (39.6-50.0); HGB 13.7 d/dL (12.0-15.0); MCH 27.3 pg (27.0-32.0); MCHC 30.7 d/dL (32.0-37.0); NRBC Per 100 WBC 0 X 10*3/uL (0.00-0.01); Platelet Count 126 X 10*3/uL (140-440); RBC 5.01 X 10*6/uL (4.40-5.60); RDW 13.6 % (11.5-14.5); WBC 8.65 X 10*3/uL (4.50-10.00)
[2022-11-09 13:51] LABS: Prealbumin 24.4 mg/dL (18.0-42.0)
[2022-11-09 14:10] LABS: % Iron Saturation 32.95 (15.00-50.00); ALT 22 U/L (10-49); AST 18 U/L (14-35); Albumin 4.6 d/dL (3.8-4.9); Alkaline Phosphatase 58 U/L (41-126); BUN/Creat Ratio 11.78 Ratio (12.00-20.00); Blood Urea Nitrogen 10.6 mg/dL (9.0-27.0); Calcium 9.1 mg/dL (8.7-10.3); Carbon Dioxide 30.3 mmol/L (21.6-31.8); Chloride 105 mmol/L (96-109); Chol/HDL Ratio 3.27 Ratio; Globulin 2.3 d/dL (1.6-3.3); Glucose 93 mg/dL (70-110); Iron 114 UG/DL (65-175); LDL Cholesterol,Calculated 84.3 mg/dL (0.0-131.0); Phosphorus 3.8 mg/dL (2.4-5.1); Potassium 4.1 mmol/L (3.5-5.5); Sodium 144 mmol/L (135-145); Total Bilirubin 0.4 mg/dL (0.3-1.2); Total Iron Binding Capacity 346 UG/DL (228-460); Total Protein 6.9 d/dL (6.2-8.2); VLDL Calculation 10.84 mg/dL (5.00-40.00)
== END | disposition home or self-care (01) ==
LOC: LABWHC1 08:52
PROVIDERS: ATTEND Surgery Plastic and Reconstructive Surgery
DX: E66.01 Morbid (severe) obesity due to excess calories (principal); E89.1 Postprocedural hypoinsulinemia; D50.8 Other iron deficiency anemias; K91.2 Postsurgical malabsorption, not elsewhere classified; E44.0 Moderate protein-calorie malnutrition; E55.9 Vitamin D deficiency, unspecified; K74.1 Hepatic sclerosis; N19 Unspecified kidney failure; K50.90 Crohn's disease, unspecified, without complications; E44.1 Mild protein-calorie malnutrition; E45 Retarded development following protein-calorie malnutrition; E46 Unspecified protein-calorie malnutrition
CPT/HCPCS: 36415; 80053; 80061; 82306; 82525; 82607; 82728; 82746; 83036; 83540; 83550; 83735; 83970; 84100; 84134; 84255; 84425; 84443; 84590; 84630; 85027; 85610; 85730

== ENCOUNTER → 2022-12-18 | Outpatient (CLI) | payer BC ==
--- NOTE | 2022-12-18 16:22 | P.PN ---
Subjective DATE: 12/18/2022 FOLLOW UP VISIT. Patient with obstructive sleep apnea hypopnea syndrome return to sleep center for follow-up visit. Information from previous visit have been reviewed. Patient is using PAP equipment every night for the whole night, getting PAP supplies in time. The patient does not have significant problems with the mask, PAP unit and humidification. [place] sleepiness scale is slightly increased to 11. I checked information from PAP unit. PAP unit pressure 9-16, average 12.9 cm H2O. Usage is 100 % for more then 4 hours, average 6.9 hours per night. Leak is 38 l/m, which is in high range. Apnea Hypopnea Index is 1.4, which is normal. MEDICATIONS:1. Allopurinol 300 mg once a day 2. Duloxetine 60 mg twice a day 3. Buspirone 10 mg twice a day 4. Bosulif 100 mg once a day During physical exam: GENERAL: A pleasant patient without any distress. VITAL SIGNS: BP 151/92, HR 95, RR 12 , weight 263.6, temperature 92.2, oxygen saturation at room air 98 % . HEENT: PERRLA, EOMI.low position of soft palate, Mallapati 4 . NECK: Supple. No JVD. LUNGS: Clear to percussion and to auscultation. Good air exchange. No wheezing or rhonchi. HEART: S1, S2 regular. ABDOMEN: Soft and nontender. Slightly obese EXTREMITIES: No clubbing or cyanosis. 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 No focal deficit. Impressions: 1. Obstructive sleep apnea-hypopnea syndrome. Patient demonstrated great compliance with treatment, benefiting from treatment. 2. Obesity BMI 38.2, patient lost 6 pounds since previous visit. 3. Status post gastric sleeve surgery. 4. Hypertension. 5. Chronic mealocytic leukemia. 6. Gout 7. History of fibromyalgia. Plan: 1. Continue using PAP equipment every night for the whole night. 2. To change air filter at least 1-2 times per month. 3. PAP unit should stay lower then position of the head. 4. Advised patient to remove all remaining water from humidifier canister daily and make it dry after each usage. Refill canister with fresh distilled water before each usage. 5. Sleep hygiene with regular time in bed for at least 8 hours. 6. Precautions related to driving. No driving if feel any sleepiness. 7. I will maintain prescription for PAP supplies including mask, tube, filters. 8. Follow up visit in 6 months or earlier if patient has any problems. 9. Watching and continue losing weight. Thank you very much for allowing me to participate in the management of your patient. Yovani Chew MD, PhD, FAASM. Diplomat of [place] [employer], Sleep Medicine Board by [place] [employer] Supervisor [employer] [facility] [place]
== END ==
LOC: 3 N SLEEP 15:53
PROVIDERS: ATTEND Internal Medicine
DX: G47.33 Obstructive sleep apnea (adult) (pediatric) (principal); E66.9 Obesity, unspecified; I10 Essential (primary) hypertension; M10.9 Gout, unspecified; M79.7 Fibromyalgia; Z68.38 Body mass index [BMI] 38.0-38.9, adult; Z98.84 Bariatric surgery status; Z99.89 Dependence on other enabling machines and devices; Z88.0 Allergy status to penicillin; Z88.2 Allergy status to sulfonamides; Z91.011 Allergy to milk products
CPT/HCPCS: 99212

== ENCOUNTER → 2023-01-29 | Outpatient (CLI) | payer BC ==
--- NOTE | 2023-01-29 16:51 | P.BASOAP ---
Subjective Progress Note Date: 01/29/23 He has maintained weight loss. Magnesium 200 mg advised. Sugar is being followed. Protrein intake. Maintained 70 pound weight loss. Fluids is 55 oz. Keep it 100 ! Assessment/Plan Plan: Date: Initial Weight: 148.325 kg Initial BMI: Current Weight: Current BMI: Type of Surgery: Total Volume in Band: Previous Volume: Volume Removed: Volume Added: Band Size:
[2023-01-29 17:06] VITALS: BP 137/86; PULSE 103; TEMP 98.2; BMI 36.6
== END ==
LOC: BARWHC3 16:25
PROVIDERS: ATTEND Surgery Plastic and Reconstructive Surgery
DX: Z53.9 Procedure and treatment not carried out, unspecified reason (principal)
CPT/HCPCS: 97803; 99211

== ENCOUNTER → 2023-02-01 | Outpatient (CLI) | payer BC ==
[2023-02-01 13:10] LABS: INR 0.9 (<1.2); Partial Thromboplastin Time 25.4 sec (22.0-30.0); Prothrombin Time 10.1 sec (9.0-12.0)
[2023-02-01 23:23] LABS: HCT 41.6 % (39.6-50.0); HGB 13.1 d/dL (13.0-17.0); MCH 27.8 pg (27.0-32.0); MCHC 31.5 d/dL (32.0-37.0); MCV 88.1 FL (80.0-97.0); Mean Platelet Volume 13.5 FL (9.5-12.2); NRBC Per 100 WBC 0 X 10*3/uL (0.00-0.01); Platelet Count 160 X 10*3/uL (140-440); RBC 4.72 X 10*6/uL (4.40-5.60); RDW 13.3 % (11.5-14.5); WBC 9.33 X 10*3/uL (4.50-10.00)
[2023-02-01 23:25] LABS: Prealbumin 26.3 mg/dL (18.0-42.0)
[2023-02-02 05:24] LABS: % Iron Saturation 32.95 (15.00-50.00); ALT 33 U/L (10-49); AST 25 U/L (14-35); Albumin 4.9 d/dL (3.8-4.9); Albumin/Globulin Ratio 1.96 Ratio (1.60-3.17); Alkaline Phosphatase 67 U/L (41-126); Blood Urea Nitrogen 12.4 mg/dL (9.0-27.0); Calcium 9.5 mg/dL (8.7-10.3); Carbon Dioxide 28.5 mmol/L (21.6-31.8); Chloride 104 mmol/L (96-109); Chol/HDL Ratio 3.36 Ratio; Globulin 2.5 d/dL (1.6-3.3); Glucose 83 mg/dL (70-110); Iron 115 UG/DL (65-175); LDL Cholesterol,Calculated 71.7 mg/dL (0.0-131.0); Magnesium 2.1 mg/dL (1.5-2.4); Phosphorus 3.4 mg/dL (2.4-5.1); Potassium 3.9 mmol/L (3.5-5.5); Sodium 144 mmol/L (135-145); Total Bilirubin 0.4 mg/dL (0.3-1.2); Total Iron Binding Capacity 349 UG/DL (228-460); Total Protein 7.4 d/dL (6.2-8.2)
[2023-02-04 12:02] LABS: Zinc, Serum 81 ug/dL (60-130)
[2023-02-05 07:27] LABS: Vit B1(Thiamine) 87 ug/L (38-122)
[2023-02-06 07:38] LABS: Vitamin A 51 ug/dL (38-106)
== END | disposition home or self-care (01) ==
LOC: LABWHC1 11:07
PROVIDERS: ATTEND Surgery Plastic and Reconstructive Surgery
DX: E66.01 Morbid (severe) obesity due to excess calories (principal); D50.8 Other iron deficiency anemias; K91.2 Postsurgical malabsorption, not elsewhere classified; E44.0 Moderate protein-calorie malnutrition; E44.1 Mild protein-calorie malnutrition; E45 Retarded development following protein-calorie malnutrition; E55.9 Vitamin D deficiency, unspecified; K74.1 Hepatic sclerosis; N19 Unspecified kidney failure; T56.894A Toxic effect of other metals, undetermined, initial encounter; K50.90 Crohn's disease, unspecified, without complications; E89.1 Postprocedural hypoinsulinemia; E46 Unspecified protein-calorie malnutrition
CPT/HCPCS: 36415; 80053; 80061; 82306; 82525; 82607; 82728; 82746; 83036; 83540; 83550; 83735; 83970; 84100; 84134; 84255; 84425; 84443; 84590; 84630; 85027; 85610; 85730

== ENCOUNTER → 2023-03-19 | Outpatient (CLI) | payer BC ==
--- NOTE | 2023-03-19 18:05 | P.BASOAP ---
Subjective Progress Note Date: 03/19/23 He has lost 70 pounds. He continues ot lose weight. He had the of his mother in law. He has more energy. He is gardening. His had surgery. He is still taking his MVI. He is taking magnesium from food. He is seeing his onologist. He is taking kale. He is missing his cancer medication. His levels are higher. He needs colon cancer evaluation more frequently. Assessment/Plan Plan: Date: Initial Weight: 148.325 kg Initial BMI: Current Weight: Current BMI: Type of Surgery: Total Volume in Band: Previous Volume: Volume Removed: Volume Added: Band Size:
[2023-03-21 12:50] VITALS: BP 133/81; PULSE 91; TEMP 98.1; BMI 36.5
== END ==
LOC: BARWHC3 16:38
PROVIDERS: ATTEND Surgery Plastic and Reconstructive Surgery
DX: Z53.9 Procedure and treatment not carried out, unspecified reason (principal)
CPT/HCPCS: 99211

== ENCOUNTER → 2023-05-08 | Outpatient (CLI) | payer BC ==
[2023-05-09 02:10] LABS: ALT 28 U/L (10-49); AST 22 U/L (14-35); Albumin 4.7 g/dL (3.8-4.9); Albumin/Globulin Ratio 1.81 Ratio (1.60-3.17); Alkaline Phosphatase 57 U/L (41-126); BUN/Creat Ratio 18.25 Ratio (12.00-20.00); Blood Urea Nitrogen 14.6 mg/dL (9.0-27.0); Calcium 9.8 mg/dL (8.7-10.3); Carbon Dioxide 28.5 mmol/L (21.6-31.8); Chloride 104 mmol/L (96-109); Globulin 2.6 g/dL (1.6-3.3); Glucose 74 mg/dL (70-110); Potassium 3.9 mmol/L (3.5-5.5); Sodium 143 mmol/L (135-145); Total Bilirubin 0.4 mg/dL (0.3-1.2); Total Protein 7.3 g/dL (6.2-8.2)
[2023-05-09 02:51] LABS: Eosinophils # (A) 0.25 X 10*3/uL (0.04-0.35); Eosinophils % (A) 2.4 %; HCT 43.1 % (39.6-50.0); HGB 13.3 g/dL (13.0-17.0); Lymphocytes # (A) 3.31 X 10*3/uL (0.90-5.00); Lymphocytes % (A) 31.8 %; MCH 27.6 pg (27.0-32.0); MCHC 30.9 g/dL (32.0-37.0); MCV 89.4 FL (80.0-97.0); Mean Platelet Volume 13.3 FL (9.5-12.2); Monocytes # (A) 1.08 X 10*3/uL (0.20-1.00); Monocytes % (A) 10.4 %; NRBC Per 100 WBC 0 X 10*3/uL (0.00-0.01); Neutrophils # (A) 5.63 X 10*3/uL (1.80-7.70); Neutrophils % (A) 54.1 %; Platelet Count 162 X 10*3/uL (140-440); RBC 4.82 X 10*6/uL (4.40-5.60); RDW 13.2 % (11.5-14.5)
== END | disposition home or self-care (01) ==
LOC: LABWHC1 13:23
PROVIDERS: ATTEND Physician Assistant
DX: C92.10 Chronic myeloid leukemia, BCR/ABL-positive, not having achieved remission (principal)
CPT/HCPCS: 36415; 80053; 81206; 85025

== ENCOUNTER → 2023-06-14 | Outpatient (CLI) | payer BC ==
--- NOTE | 2023-06-14 12:39 | XR ---
EXAMINATION TYPE: XR shoulder complete RT DATE OF EXAM: 06/14/2023 COMPARISON: NONE HISTORY: Pain TECHNIQUE: Shoulder examined in 3 projections. FINDINGS: The humeral head articulates with the glenoid. The acromio-clavicular junction is normal. No acute fractures or dislocations are evident. A follow up study can be performed 7-10 days from acute trauma for continued pain. MRI can be perfor med if soft tissue evaluation would be of benefit. IMPRESSION: 1. No acute osseous shoulder abnormality.
[2023-06-14 23:02] LABS: HCT 37.8 % (39.6-50.0); HGB 11.8 g/dL (13.0-17.0); MCH 27.1 pg (27.0-32.0); MCHC 31.2 g/dL (32.0-37.0); MCV 86.9 FL (80.0-97.0); Mean Platelet Volume 12.8 FL (9.5-12.2); NRBC Per 100 WBC 0.03 X 10*3/uL (0.00-0.01); Platelet Count 252 X 10*3/uL (140-440); RBC 4.35 X 10*6/uL (4.40-5.60); RDW 13.2 % (11.5-14.5); WBC 22.79 X 10*3/uL (4.50-10.00)
[2023-06-14 23:22] LABS: Basophils # (A) 0.13 X 10*3/uL (0.00-0.10); Basophils % (A) 0.6 %; Eosinophils # (A) 0.08 X 10*3/uL (0.04-0.35); Eosinophils % (A) 0.4 %; Lymphocytes # (A) 4.62 X 10*3/uL (0.90-5.00); Lymphocytes % (A) 20.3 %; Monocytes # (A) 1.75 X 10*3/uL (0.20-1.00); Monocytes % (A) 7.7 %; Neutrophils # (A) 15.52 X 10*3/uL (1.80-7.70); RBC Morphology Normal (Normal)
== END | disposition home or self-care (01) ==
LOC: LABWHC1 11:27
PROVIDERS: ATTEND Family Medicine
DX: M25.511 Pain in right shoulder (principal); R53.82 Chronic fatigue, unspecified
CPT/HCPCS: 36415; 84403; 84443; 85025

== ENCOUNTER → 2023-06-21 | Outpatient (CLI) | payer BC ==
[2023-06-21 17:48] LABS: % Iron Saturation 44.37 (15.00-50.00)
== END | disposition home or self-care (01) ==
LOC: LABWHC1 11:32
PROVIDERS: ATTEND Family Medicine
DX: D64.9 Anemia, unspecified (principal)
CPT/HCPCS: 36415; 82728; 83540; 83550

== ENCOUNTER → 2023-06-28 | Outpatient (CLI) | payer BC ==
[2023-06-28 23:08] LABS: % Iron Saturation 38.14 (15.00-50.00)
== END | disposition home or self-care (01) ==
LOC: LABWHC1 10:55
PROVIDERS: ATTEND Surgery Plastic and Reconstructive Surgery
DX: D64.9 Anemia, unspecified (principal)
CPT/HCPCS: 36415; 82728; 83540; 83550

== ENCOUNTER → 2023-10-25 | Outpatient (CLI) | payer BC ==
[2023-10-25 23:36] LABS: Eosinophils % (A) 2.1 %; HCT 42.9 % (39.6-50.0); HGB 13.3 g/dL (13.0-17.0); Lymphocytes # (A) 2.72 X 10*3/uL (0.90-5.00); MCH 27.3 pg (27.0-32.0); MCV 88.1 FL (80.0-97.0); Mean Platelet Volume 13.5 FL (9.5-12.2); Monocytes # (A) 0.96 X 10*3/uL (0.20-1.00); Monocytes % (A) 9.9 %; NRBC Per 100 WBC 0 X 10*3/uL (0.00-0.01); Neutrophils # (A) 5.69 X 10*3/uL (1.80-7.70); Neutrophils % (A) 58.7 %; Platelet Count 149 X 10*3/uL (140-440); RBC 4.87 X 10*6/uL (4.40-5.60); RDW 13.3 % (11.5-14.5)
[2023-10-26 07:08] LABS: ALT 25 U/L (10-49); AST 21 U/L (14-35); Albumin 4.6 g/dL (3.8-4.9); Albumin/Globulin Ratio 1.92 Ratio (1.60-3.17); Alkaline Phosphatase 53 U/L (41-126); BUN/Creat Ratio 12.62 Ratio (12.00-20.00); Blood Urea Nitrogen 10.1 mg/dL (9.0-27.0); Calcium 9.3 mg/dL (8.7-10.3); Chloride 106 mmol/L (96-109); Globulin 2.4 g/dL (1.6-3.3); Glucose 93 mg/dL (70-110); Potassium 3.6 mmol/L (3.5-5.5); Sodium 142 mmol/L (135-145); Total Bilirubin 0.4 mg/dL (0.3-1.2)
== END | disposition home or self-care (01) ==
LOC: LABWHC1 10:57
PROVIDERS: ATTEND Internal Medicine
DX: C92.10 Chronic myeloid leukemia, BCR/ABL-positive, not having achieved remission (principal)
CPT/HCPCS: 36415; 80053; 85025

== ENCOUNTER → 2023-11-19 | Outpatient (CLI) | payer BC ==
--- NOTE | 2023-11-26 11:53 | MR ---
EXAMINATION TYPE: MR knee LT wo con DATE OF EXAM: 11/19/2023 COMPARISON: Outside bilateral knee x-rays 5 days earlier HISTORY: Left knee pain and swelling x10 years TECHNIQUE: Multiplanar, multisequence images of the knee is performed without IV contrast. FINDINGS: MEDIAL MENISCUS: Anterior and posterior horns are intact without tear. LATERAL MENISCUS: Anterior and posterior horns are intact without tear. CRUCIATE LIGAMENTS: The anterior and posterior cruciate ligaments are intact and unremarkable. COLLATERAL LIGAMENTS: The medial collateral ligament and lateral collateral ligament complex are inta ct and unremarkable. EXTENSOR MECHANISM: Visualized quadriceps and patellar tendons are intact. EFFUSION: No significant suprapatellar joint effusion. POPLITEAL CYST: Tiny popliteal/hayes cyst. TRICOMPARTMENT SPACES: Focal mild to moderate narrowing inferior medial aspect of the patellofemoral compartment. Tricompartment joint spaces are otherwise preserved. No significant spurring is seen. CARTILAGE: Tricompartmental articular cartilage is otherwise maintained. See below. BONE MARROW SIGNAL: Area of heterogeneous diminished T1 and increased T2 signal involving the anterol ateral aspect of the distal medial femoral condyle seen best sagittal image 20 measuring 1.6 cm AP di ameter and coronal image 13 measuring 1.3 cm transversely. OTHER: No additional significant abnormality is appreciated. IMPRESSION: 1. Small focus of osteochondral injury anterolateral aspect of the distal medial femoral condyle at s ite of patellofemoral joint focal narrowing. 2. No meniscal or ligamentous tear is seen.
== END | disposition home or self-care (01) ==
LOC: RADMRIMAIN 20:15
PROVIDERS: ATTEND Orthopaedic Surgery
DX: S89.92XA Unspecified injury of left lower leg, initial encounter (principal)

== ENCOUNTER → 2023-11-29 | Outpatient (CLI) | payer BC ==
[2023-11-29 23:13] LABS: Basophils # (A) 0.11 X 10*3/uL (0.00-0.10); Basophils % (A) 1.1 %; HGB 13.6 g/dL (13.0-17.0); Lymphocytes # (A) 2.92 X 10*3/uL (0.90-5.00); Lymphocytes % (A) 29.7 %; MCHC 30.9 g/dL (32.0-37.0); MCV 90.7 FL (80.0-97.0); Monocytes # (A) 0.88 X 10*3/uL (0.20-1.00); NRBC Per 100 WBC 0 X 10*3/uL (0.00-0.01); Neutrophils # (A) 5.69 X 10*3/uL (1.80-7.70); Neutrophils % (A) 57.9 %; Platelet Count 140 X 10*3/uL (140-440); RBC 4.85 X 10*6/uL (4.40-5.60); RDW 13.5 % (11.5-14.5); WBC 9.83 X 10*3/uL (4.50-10.00)
[2023-11-30 10:13] LABS: Anion Gap 10.9 mmol/L (4.00-12.00); Carbon Dioxide 28.1 mmol/L (21.6-31.8); Potassium 3.8 mmol/L (3.5-5.5)
== END | disposition home or self-care (01) ==
LOC: LABPAT 11:36
PROVIDERS: ATTEND Orthopaedic Surgery
DX: Z01.812 Encounter for preprocedural laboratory examination (principal); M23.92 Unspecified internal derangement of left knee
CPT/HCPCS: 80051; 85025

== ENCOUNTER 2023-12-01 21:50 | Emergency (ER) | payer BC ==
[2023-12-01 22:06] VITALS: RESP 18; TEMP 98.2
--- NOTE | 2023-12-01 22:15 | ED ---
Wound/Laceration HPI - General Chief Complaint: Wound/Laceration Stated Complaint: L hand lac Time Seen by Provider: 12/01/23 22:14 Source: patient, RN notes reviewed, old records reviewed Mode of arrival: ambulatory Limitations: no limitations - History of Present Illness Initial Comments: This is a 48-year-old male to the ER for evaluation today patient has left hand puncture wound wall cutting open a delivery, open a box and stabbed his knife into his hand. Patient has full range of motion of the hand no other injury noted -: hour(s) Place: home Patient Tetanus UTD: No Context: accidental Associated Symptoms: none Treatments Prior to Arrival: bandage - Related Data Home Medications Medication Instructions Recorded Confirmed allopurinoL [Zyloprim] 300 mg PO DAILY 06/05/18 03/21/23 Bosutinib [Bosulif] 200 mg PO PC-SUPPER 02/21/21 03/21/23 Albuterol Inhaler [Ventolin Hfa 1 puff INHALATION DIRECTED PRN 09/12/21 03/21/23 Inhaler] DULoxetine HCL [Cymbalta] 60 mg PO BID 01/10/22 03/21/23 busPIRone HCL 10 mg PO BID 01/10/22 03/21/23 Bariatric Multivitamin 1 tab PO DAILY 10/07/22 03/21/23 Calcium Carbonate [Calcium] 600 mg PO DAILY 10/07/22 03/21/23 Ferrous Sulfate [Iron (65 MG 325 mg PO DAILY 10/07/22 03/21/23 Elemental)] Verapamil HCl [Verelan] 360 mg PO DAILY 10/07/22 03/21/23 calcium polycarbophiL [Fibercon] 625 mg PO DAILY 10/07/22 03/21/23 Budesonide/Glycopyr/Formoterol 2 puff INHALATION BID 10/09/22 03/21/23 [Breztri Aerosphere Inhaler] Losartan/Hydrochlorothiazide 1 tab PO DAILY 01/29/23 03/21/23 [Losartan-Hctz 100-25 mg Tab] amLODIPine [Norvasc] 10 mg PO DAILY 01/29/23 03/21/23 Previous Rx's Medication Instructions Recorded Acetaminophen Tab [Tylenol] 1,000 mg PO Q6HR PRN #30 tablet 01/14/22 Ondansetron Odt [Zofran ODT] 4 mg PO Q8HR PRN #9 tab 01/14/22 Allergies Allergy/AdvReac Type Severity Reaction Status Date / Time Penicillins Allergy Rash/Hives Verified 12/01/23 22:06 lactose AdvReac Nausea & Verified 12/01/23 22:06 Vomiting & Diarrhea Sulfa (Sulfonamide AdvReac Rash/Hives Verified 12/01/23 22:06 Antibiotics) Review of Systems ROS Statement: Those systems with pertinent positive or pertinent negative responses have been documented in the HPI. ROS Other: All systems not noted in ROS Statement are negative. Past Medical History Past Medical History: Asthma, Cancer, Fibromyalgia, Hypertension, Pneumonia, Sleep Apnea/CPAP/BIPAP Additional Past Medical History / Comment(s): CML, GOUT, HX MONO, COVID X2 (JAN & MAY 2021)., HX ULCERS., GASTRIC SLEEVE SURGERY 01/07/22 ABORTED DUE TO LOW BLOODPRESSURE. History of Any Multi-Drug Resistant Organisms: None Reported Past Surgical History: Bariatric Surgery, Heart Catheterization Additional Past Surgical History / Comment(s): Heart cath 2013. Dental work, EGD, COLONOSCOPY, gastric sleeve 01/11/22. Heart cath October 2022 Past Anesthesia/Blood Transfusion Reactions: Previous Problems w/ Anesthesia, Motion Sickness Additional Past Anesthesia/Blood Transfusion Reaction / Comment(s): PT CAME FOR GASTRIC SLEEVE ON 01/07/22 AND STATES WHEN THEY GAVE HIM ANESTHESIA HIS BLOODPRESSURE DROPPED AND SURGERY WAS ABORTED-SINCE THEN HE HAS NOT TAKEN HIS VERAPAMIL, HCTZ-OLMESARTAN AND POTASSIUM. , WAS SEEN BY CARDIOLOGY IN HOSPITAL AND ECHOCARDIOGRAM DONE (EMR) Past Psychological History: Anxiety, Depression Smoking Status: Never smoker Past Alcohol Use History: Rare Past Drug Use History: None Reported - Past Family History Father Family Medical History: Cancer Additional Family Medical History / Comment(s): prostate, colon cancers General Exam - General Exam Comments Initial Comments: 3 cm left hand laceration from knife puncture wound Limitations: no limitations General appearance: alert, in no apparent distress Head exam: Present: atraumatic, normocephalic, normal inspection Eye exam: Present: normal appearance, PERRL, EOMI. Absent: scleral icterus, conjunctival injection, periorbital swelling ENT exam: Present: normal exam, mucous membranes moist Neck exam: Present: normal inspection. Absent: tenderness, meningismus, lymphadenopathy Respiratory exam: Present: normal lung sounds bilaterally. Absent: respiratory distress, wheezes, rales, rhonchi, stridor Cardiovascular Exam: Present: regular rate, normal rhythm, normal heart sounds. Absent: systolic murmur, diastolic murmur, rubs, gallop, clicks GI/Abdominal exam: Present: soft, normal bowel sounds. Absent: distended, tenderness, guarding, rebound, rigid Extremities exam: Present: normal inspection, full ROM, normal capillary refill. Absent: tenderness, pedal edema, joint swelling, calf tenderness Back exam: Present: normal inspection Neurological exam: Present: alert, oriented X3, CN II-XII intact Psychiatric exam: Present: normal affect, normal mood Skin exam: Present: warm, dry, intact, normal color. Absent: rash Course Vital Signs 12/01/23 12/01/23 22:02 23:02 Temperature 98.2 F Pulse Rate 99 94 Respiratory 18 18 Rate Blood Pressure 136/84 O2 Sat by Pulse 98 97 Oximetry - Reevaluation(s) Reevaluation #1: Medical records reviewed Reevaluation #2: Patient symptoms improved Reevaluation #3: Patient informed of results questions answered Reevaluation #4: Was pt. sent in by a medical professional or institution (, PA, STORE WAREHOUSE ASSOCIATE, urgent care, hospital, or jail...) When possible be specific @ -no Did you speak to anyone other than the patient for history (EMS, parent, family, police, friend...)? What history was obtained from this source @ -no Did you review nursing and triage notes (agree or disagree)? Why? @ -agree Are old charts reviewed (outside hosp., previous admission, EMS record, old EKG, old radiological studies, urgent care reports/EKG's, jail records)? Report findings @ -yes Differential Diagnosis (chest pain, altered mental status, abdominal pain women, abdominal pain men, vaginal bleeding, weakness, fever, dyspnea, syncope, headache, dizziness, GI bleed, back pain, seizure, CVA, palpatations, mental health, musculoskeletal)? @ -prior EKG interpreted by me (3pts min.). @ -no X-rays interpreted by me (1pt min.). @ -no CT interpreted by me (1pt min.). @ -no U/S interpreted by me (1pt. min.). @ -no What testing was considered but not performed or refused? (CT, X-rays, U/S, labs)? Why? @ -none What meds were considered but not given or refused? Why? @ -none Did you discuss the management of the patient with other professionals (professionals i.e. , PA, STORE WAREHOUSE ASSOCIATE, lab, RT, psych nurse, social welfare administrator, precinct captain, teacher, compliance review officer, supervisor case loading)? Give summary @ -no Was smoking cessation discussed for >3mins.? @ -no Was critical care preformed (if so, how long)? @ -no Were there social determinants of health that impacted care today? How? (Homelessness, low income, unemployed, alcoholism, drug addiction, transportation, low edu. Level, literacy, decrease access to med. care, mcc, rehab)? @ -none Was there de-escalation of care discussed even if they declined (Discuss DNR or withdrawal of care, Hospice)? DNR status @ -no What co-morbidities impacted this encounter? (DM, HTN, Smoking, COPD, CAD, Cancer, CVA, ARF, Chemo, Hep., AIDS, mental health diagnosis, sleep apnea, morbid obesity)? @ -none Was patient admitted / discharged? Hospital course, mention meds given and route, prescriptions, significant lab abnormalities, going to OR and other pertinent info. @ - 48 male with left hand laceration repaired here in the ER patient can be discharged home Discharge Undiagnosed new problem with uncertain prognosis? @ -no Drug Therapy requiring intensive monitoring for toxicity (Heparin, Nitro, Insulin, Cardizem)? @ -no Were any procedures done? @ -no Diagnosis/symptom? @ -Hand laceration left Acute, or Chronic, or Acute on Chronic? @ -Acute Uncomplicated (without systemic symptoms) or Complicated (systemic symptoms)? @ -Complicated Side effects of treatment? @ -no Exacerbation, Progression, or Severe Exacerbation? @ -exacerbation Poses a threat to life or bodily function? How? (Chest pain, [place], [place], pneumonia, PE, COPD, DKA, ARF, appy, cholecystitis, CVA, Diverticulitis, Homicidal, Suicidal, threat to staff... and all critical care pts) @ -no Procedures - Laceration Laceration #1 Consent Obtained: verbal consent Indication: laceration Site: hand Size (cm): 3 Description: linear Anesthetic Used: lidocaine 1% Pre-repair: wound explored, irrigated extensively, deep structures intact Size of Sutures: 5-0 Technique: running Patient Tolerated Procedure: well Medical Decision Making - Medical Decision Making 48 male with left hand laceration repaired here in the ER patient can be discharged home Disposition Clinical Impression: Laceration of hand Narrative: 3 cm laceration Disposition: HOME SELF-CARE Condition: Good Instructions (If sedation given, give patient instructions): Care For Your Stitches (ED), Laceration (ED) Is patient prescribed a controlled substance at d/c from ED?: No Referrals: Nico Dockery MD [Primary Care Provider] - 1-2 days Time of Disposition: 22:50
[2023-12-01 23:06] VITALS: BP 136/84; PULSE 94
== END 2023-12-01 23:12 | disposition home or self-care (01) ==
LOC: EC 21:50
DX: S61.412A Laceration without foreign body of left hand, initial encounter (principal); Z88.0 Allergy status to penicillin; Z88.1 Allergy status to other antibiotic agents; Z88.2 Allergy status to sulfonamides; Z91.011 Allergy to milk products; Z86.16 Personal history of COVID-19; W26.9XXA Contact with unspecified sharp object(s), initial encounter
CPT/HCPCS: 12002; 99282

== ENCOUNTER 2023-12-25 13:39 | Day surgery (SDC) | payer BC ==
[2023-12-23 13:28] VITALS: BMI 36.9
--- NOTE | 2023-12-24 13:57 | HP ---
HISTORY AND PHYSICAL DATE OF SURGERY: 12/25/2023. HISTORY OF PRESENT ILLNESS: Jamal Ward is a 48-year-old gentleman seen with progressive left knee pain. We discussed options regarding treatment. He elected to proceed with left knee arthroscopy. Consent was obtained. PAST MEDICAL HISTORY: Hypertension, asthma, anxiety. PAST SURGICAL HISTORY: Heart catheterization, gastric sleeve surgery. DAILY MEDICATIONS: 1. Albuterol inhaler. 2. Amlodipine. 3. Losartan. 4. Verapamil. ALLERGIES: Lactose, penicillin, sulfa. SOCIAL HISTORY: Denies tobacco use. PHYSICAL EVALUATION OF THE LEFT KNEE: His range of motion is 0 to 125 degrees. Mild effusion. He is tender along the medial and lateral joint lines. Positive medial Helen's. Ligaments stable. Hip rotation without pain. Distal neurovascular exam is intact. IMAGING STUDIES: Radiographs of the left knee revealed mild osteoarthritis. MRI of left knee revealed an osteochondral injury involving the medial femoral condyle with mild to moderate patellofemoral compartment osteoarthritis. IMPRESSION: 1. Internal derangement of left knee with medial femoral condyle osteochondral deficit. 2. Hypertension. 3. Asthma. PLAN: Left knee arthroscopy with microfracture medial femoral condyle and debridement. MMODL / IJN: [id number] /
[~2023-12-25 13:39] MED LIST changes: -ASPIRIN 81 MG ONE; -HEPARIN SODIUM 1,000 UN/ML (10ML VL) ONE; +HYDROmorphone 0.5 MG/0.5 ML SYRINGE IVP PRN; +LIDOCAINE 1% (10MG/ML) FOR IV START INTRADERMA PRN; -VERAPAMIL 2.5 MG/ML 2 ML AMP ONE; +droPERidol 5 MG/2 ML VIAL IVP ONE
[2023-12-25] MEDS: IV FLUID CONTINUATION 1,000 ML IV ONE (14:01)
[2023-12-25 14:08] VITALS: RESP 16
[2023-12-25] MEDS: LACTATED RINGERS 1,000 ML IV SCH (14:21)
[2023-12-25] MEDS: DEXAMETHASONE SOD PHOSPHATE 4 MG/ML 1 ML VIAL IV ONE (14:21)
[2023-12-25] MEDS: SCOPOLAMINE 1 MG/72 HR PATCH TRANSDERM ONE (14:22)
[2023-12-25] MEDS: ONDANSETRON 4 MG/2 ML VIAL IVP ONE (14:31)
[2023-12-25] MEDS ORDERED: fentaNYL (PF) 50 MCG/ML 2 ML AMP ONE (15:10)
[2023-12-25] MEDS ORDERED: KETOROLAC 15 MG/ML 1 ML VIAL ONE (15:10)
[2023-12-25] MEDS ORDERED: MIDAZOLAM 2 MG/2 ML VIAL ONE (15:10)
[2023-12-25] MEDS ORDERED: SUCCINYLCHOLINE CHLORIDE 200 MG/10 ML VIAL IV ONE (15:10)
[2023-12-25] MEDS ORDERED: LIDOCAINE 1% INJ 10MG/ML (20 ML MDV) ONE (15:10)
[2023-12-25] MEDS ORDERED: PROPOFOL 10 MG/ML 20 ML VIAL IV ONE (15:10)
[2023-12-25] MEDS ORDERED: LIDOCAINE 4% LTA KIT (4 ML) TOPICAL ONE (15:10)
[2023-12-25] MEDS: BUPIVACAINE (PF) 0.25% 30 ML VIAL SQ ONE (15:32)
--- NOTE | 2023-12-25 15:58 | P.OP ---
Date of Procedure: 12/25/23 Preoperative Diagnosis: Internal derangement left knee Postoperative Diagnosis: 1. Tear medial and lateral meniscus left knee 2. Grade IV chondromalacia femoral sulcus left knee 3. Reactive synovitis medial, lateral and suprapatellar compartments left knee Procedure(s) Performed: 1. Arthroscopic partial medial and lateral meniscectomy left knee 2. Arthroscopic microfracture femoral sulcus left knee 3. Arthroscopic partial synovectomy medial, lateral and suprapatellar compartments left knee Anesthesia: ALIYAHA, local Surgeon: Gene De Anda Estimated Blood Loss (ml): 5 Pathology: none sent Condition: stable Disposition: PACU Indications for Procedure: 48-year-old patient seen with progressive left knee pain. After having treatment options discussed, he elected to proceed with arthroscopy. Operative Findings: See description of procedure Description of Procedure: Patient was taken to the operative suite. Patient underwent a general anesthetic by the department of anesthesia. Patient was given preoperative antibiotics. The left lower extremity was placed in a well-padded arthroscopic leg george. The left leg was prepped and draped in the normal sterile orthopedic fashion. A lateral parapatellar and suprapatellar incision was made. Trochars were inserted. Arthroscopy was initiated. Suprapatellar pouch revealed diffuse thick reactive synovitis. The patellofemoral joint appeared to articulate congruently. There was grade I chondromalacia of the patella and an area of grade III/IV chondromalacia involving the femoral sulcus with osteochondral flap tears present. The scope was guided into the medial gutter. No loose bodies or plica were identified. The scope was then guided into the medial compartment. A medial parapatellar incision was made. Trocar inserted followed by probe. There was a tear involving the posterior horn medial meniscus. There was mild grade I chondromalacia of the tibial plateau. There was some thick reactive synovitis anteriorly. I performed a partial medial meniscectomy getting down to stable meniscal tissue. I performed a partial synovectomy decompressing the reactive synovitis. The residual meniscus was probed and was found to be stable. There was good decompression of the synovitis. Scope and probe were then guided into the intercondylar notch. Cruciates were identified, probed and found to be stable. The scope and probe were then guided into lateral compartment. There was a radial tear mid bilateral meniscus. There was no chondromalacia present. There was some thick reactive synovitis anteriorly. I performed a partial lateral meniscectomy getting down to stable meniscal tissue. I performed a partial synovectomy decompressing the reactive synovitis. The residual meniscus was probed and was found to be stable. There was good decompression of the synovitis. The scope was in guided back into the suprapatellar compartment. I introduced a motorized shaver into the suprapatellar compartment. I performed a partial synovectomy decompressing the thick reactive synovitis. I performed a chondroplasty of the femoral sulcus getting down to stable osteochondral tissue. I did note an area of exposed bone involving the femoral sulcus which measured just under centimeter. I now introduced a microfracture awl and I performed a microfracture to that area of exposed bone penetrating the bone with resultant bleeding at the microfracture site. The residual osteochondral surface was probed and was found to be stable. I now took 1 more look around the entire knee, no residual debris. Instruments were now removed from the joint. The joint was infiltrated with .25% Marcaine. Steri-Strips were applied to the portal sites. Sterile dressings were applied. The patient was placed into a LANA hose. No tourniquet was utilized. The patient was awakened, transferred to a bed and taken to recovery stable satisfactory condition.
[2023-12-25 15:59] VITALS: TEMP 98.3
[2023-12-25 16:47] VITALS: PULSE 96
[2023-12-25] MEDS: HYDROcodone/APAP 5-325MG 1 EACH TAB PO STA (16:50)
[2023-12-25 17:00] VITALS: BP 115/69
== END 2023-12-25 17:20 | disposition home or self-care (01) ==
LOC: OR 13:39
PROVIDERS: ATTEND Orthopaedic Surgery
DX: M18.9 Osteoarthritis of first carpometacarpal joint, unspecified (principal); I10 Essential (primary) hypertension; J45.909 Unspecified asthma, uncomplicated; F41.9 Anxiety disorder, unspecified; G47.33 Obstructive sleep apnea (adult) (pediatric); K21.9 Gastro-esophageal reflux disease without esophagitis; F17.200 Nicotine dependence, unspecified, uncomplicated; M79.7 Fibromyalgia; K25.9 Gastric ulcer, unspecified as acute or chronic, without hemorrhage or perforation; F32.A Depression, unspecified; X58.XXXA Exposure to other specified factors, initial encounter; Z79.51 Long term (current) use of inhaled steroids; Z88.2 Allergy status to sulfonamides; Z99.89 Dependence on other enabling machines and devices; Z79.899 Other long term (current) drug therapy; Z88.0 Allergy status to penicillin
CPT/HCPCS: 29879; 29880; J2250; J0330; J1100; J0690; J2405; J2001; J3010; J1885; J2704; J0665

== ENCOUNTER → 2024-01-07 | Outpatient (CLI) | payer BC | LOC: 3 N SLEEP 15:58 | PROVIDERS: ATTEND Internal Medicine | CPT/HCPCS: 99212 ==

== ENCOUNTER → 2024-06-19 | Outpatient (CLI) | payer BC ==
[2024-06-19 23:23] LABS: Basophils # (A) 0.09 X 10*3/uL (0.00-0.10); Eosinophils # (A) 0.23 X 10*3/uL (0.04-0.35); Eosinophils % (A) 2.6 %; HCT 42.5 % (39.6-50.0); HGB 12.7 g/dL (13.0-17.0); Lymphocytes # (A) 2.57 X 10*3/uL (0.90-5.00); Lymphocytes % (A) 28.9 %; MCH 26.1 pg (27.0-32.0); MCHC 29.9 g/dL (32.0-37.0); MCV 87.3 FL (80.0-97.0); Mean Platelet Volume 13.5 FL (9.5-12.2); Monocytes # (A) 0.81 X 10*3/uL (0.20-1.00); Monocytes % (A) 9.1 %; NRBC Per 100 WBC 0 X 10*3/uL (0.00-0.01); Neutrophils # (A) 5.17 X 10*3/uL (1.80-7.70); Neutrophils % (A) 58.1 %; Platelet Count 146 X 10*3/uL (140-440); RBC 4.87 X 10*6/uL (4.40-5.60); RDW 13.2 % (11.5-14.5)
[2024-06-20 10:21] LABS: Anion Gap 12.5 mmol/L (4.00-12.00); Carbon Dioxide 24.5 mmol/L (21.6-31.8); Potassium 3.8 mmol/L (3.5-5.5)
== END | disposition home or self-care (01) ==
LOC: LABPAT 11:15
PROVIDERS: ATTEND Orthopaedic Surgery
DX: M23.91 Unspecified internal derangement of right knee (principal)
CPT/HCPCS: 80051; 85025

== ENCOUNTER → 2024-06-21 | Outpatient (CLI) | payer BC | END | disposition home or self-care (01) | LOC: LABWHC1 12:44 | PROVIDERS: ATTEND Orthopaedic Surgery | DX: Z53.9 Procedure and treatment not carried out, unspecified reason (principal) ==